=== PATIENT | female | born 1985 | race African-American/Black ===

== ENCOUNTER 2020-01-10 15:16 | Emergency (ER) | payer MEDICARE, SELFPAY ==
--- NOTE | ~2020-01-10 | XR_ITS ---
EXAMINATION: XR chest 2V 01/10/2020 15:41 INDICATION: Midsternal chest pain. Possible A. fib. Recently in-hospital for sepsis. PROCEDURE: 2 view chest COMPARISON: 09/07/2014 FINDINGS: The lungs are clear. The cardiomediastinal silhouette is within normal limits. There are no pleural effusions. There is no pneumothorax suspected. IMPRESSION: 1: NO ACUTE CARDIOPULMONARY DISEASE. Reviewed, dictated and finalized at location B. GN ENGINEERING SPECIALIST
--- NOTE | ~2020-01-10 | CT_ITS ---
EXAMINATION: CTA chest PE protocol DATE: 01/10/2020 18:49 INDICATION: Chest pain and shortness of breath. TECHNIQUE: Computed tomography (CT) pulmonary angiogram of the chest was performed with 100 mL Omnipa que-350 intravenous contrast. Additional 3D reconstructions utilizing coronal maximum intensity proje ction (MIP) were performed. Automated exposure control and iterative reconstruction technique were em ployed. The dose-length product was 804.16 mGy-cm. COMPARISON: None FINDINGS: Excellent contrast opacification of the pulmonary arteries. There is mild streak artifact from dense contrast in the superior vena cava and right atrium. Mild scattered respiratory motion artifact does not significantly limit evaluation. No pulmonary embolism. No pneumonia, pulmonary edema or pleural e ffusion. Heart size is normal. No pericardial effusion. Thoracic aorta is normal in caliber with no d issection. No pathologically enlarged thoracic lymphadenopathy. Small amount of soft tissue density i nterspersed with fat in the anterior mediastinum consistent with residual thymic tissue. Visualized u pper abdomen is unremarkable. There are bridging osteophytes at multiple levels in the spine, consist ent with diffuse idiopathic skeletal hyperostosis (DISH). IMPRESSION: 1. No pulmonary embolism or other acute cardiopulmonary disease. Reviewed, dictated and finalized at location A. REMOVER
[2020-01-10 15:09] VITALS: BP 119/73; PULSE 132; RESP 24; TEMP 36.8; O2SAT 100
--- NOTE | 2020-01-10 15:16 | ECG_ITS ---
Measurements Intervals [place] Rate: 128 P: 35 WI: 176 QRS: 21 QRSD: 76 T: 70 QT: 307 QTc: 449 Interpretive Statements SINUS TACHYCARDIA NONSPECIFIC T-WAVE ABNORMALITY- HIGH LATERAL LEADS BASELINE WANDER- I, II, AVR, V4-V6 ABNORMAL ECG Electronically Signed On 01-10-2020 15:35:23 PROFESSOR OF VEGETABLE SCIENCE by Maury Paige D.O.
[2020-01-10 15:32] LABS: Basophils Absolute Auto 0.1 K/mm3 (0.0-0.1); Basophils Percent Auto 0.9 % (0.2-1.2); Eosinophils Absolute Auto 0.1 K/mm3 (0-0.3); Eosinophils Percent Auto 1.1 % (0-4.4); Hematocrit 37.5 % (37.0-47.0); Hemoglobin 11.5 g/dL (12.0-15.0); Immature Granulocyte Absolute 0.04 K/mm3 (0.00-0.031); Immature Granulocyte Percent A 0.5 % (0-0.5); Lymphocytes Absolute Auto 3.13 K/mm3 (0.9-3.2); Lymphocytes Percent Auto 41.6 % (18.3-44.2); Mean Corpuscular HGB Conc 30.7 g/dl (32-36); Mean Corpuscular Hemoglobin 21.1 pg (26-34); Mean Corpuscular Volume 68.7 fl (80-100); Mean Platelet Volume 9.1 fl (7.4-10.4); Monocytes Absolute Auto 0.4 K/mm3 (0.1-0.6); Monocytes Percent Auto 4.8 % (2.6-8.5); Neutrophils Absolute Auto 3.9 K/mm3 (1.3-6.7); Neutrophils Percent Auto 51.1 % (45.5-73.1); Platelet Count Result 316 k/mm3 (150-375); Red Blood Count 5.46 M/mm3 (4.2-5.4); Red Cell Distribution Width 21.2 % (11.5-14.5); White Blood Count 7.5 K/mm3 (4.5-10.0)
[2020-01-10 15:45] LABS: INR 1.1; Prothrombin Time 14.9 Seconds (11.1-14.7)
[2020-01-10 15:46] LABS: Partial Thromboplastin Time 24.3 SECONDS (22.3-36.8)
[2020-01-10 15:48] LABS: Anion Gap 12 mmol/L (8-16); Blood Urea Nitrogen 11 mg/dL (7-17); Calcium 9.3 mg/dL (8.4-10.2); Carbon Dioxide 18 mmol/L (22-30); Chloride 105 mmol/L (98-107); Estimated CRCL calculation 140 ml/min; Estimated Glomerular Filt Rate > 60; Glucose 329 mg/dL (65-105); Potassium 4.5 mmol/L (3.4-5.0); Sodium 135 mmol/L (137-145)
--- NOTE | 2020-01-10 15:54 | ED.CHESTPAIN ---
HPI - Chest Pain General Chief Complaint: Chest Pain Stated Complaint: cp Time Seen by Provider: 01/10/20 15:28 Source: patient Mode of arrival: ambulatory Limitations: no limitations History of Present Illness HPI narrative: Patient is 34-year-old female complaining of chest pain, sharp, substernal, nonradiating, 6 out of 10, started today. Patient denies any shortness of breath, abdominal pain, nausea, vomiting, diaphoresis, fever or chills patient was recently discharged from [facility] due to toxic abscess. Patient was sent here by her primary care physician. Related Data Home Medications Medication Instructions Recorded Confirmed ferrous sulfate 325 mg PO DAILY 01/10/20 glucagon HCl [Glucagon (HCl) 1 mg SUBCUT Q20M PRN 01/10/20 Emergency Kit] insulin aspart U-100 [Novolog 1 sliding scale dose SUBCUT 01/10/20 PenFill U-100 Insulin] USEASDIRECTD insulin glargine [Lantus U-100 20 unit SUBCUT QPM 01/10/20 Insulin] medroxyprogesterone [Depo-Provera] 150 mg IM [id number] 01/10/20 Allergies Allergy/AdvReac Type Severity Reaction Status Date / Time No Known Allergies Allergy Verified 01/10/20 15:14 Review of Systems Review of Systems: All systems reviewed & are unremarkable except as noted in HPI and below Constitutional: Constitutional: Denies body ache(s), Denies chills, Denies excessive sweating, Denies fatigue, Denies fever(s), Denies headache(s), Denies lethargy, Denies malaise, Denies weakness and Denies weight loss Eyes: Eyes: Denies blurry vision, Denies change in vision and Denies loss of vision ENT: Denies dizziness, Denies ear discharge, Denies headache(s), Denies lip swelling, Denies epistaxis, Denies nasal congestion, Denies neck pain, Denies throat swelling and Denies tongue swelling Cardiovascular: Cardiovascular: Denies diaphoresis, Denies rapid heart rate, Denies edema, Denies irregular heart rhythm, Denies lightheadedness, Denies dyspnea and Denies dyspnea on exertion Respiratory: Respiratory: Denies chest congestion, Denies cough, Denies hemoptysis, Denies dyspnea and Denies dyspnea on exertion Gastrointestinal: Gastrointestinal: Denies abdominal pain, Denies melena, Denies hematochezia, Denies diarrhea, Denies nausea, Denies vomiting and Denies hematemesis Musculoskeletal: Musculoskeletal: Denies abnormal gait, Denies deformity, Denies joint swelling, Denies limited range of motion, Denies neck pain and Denies numbness Neurologic: Denies Abnormal speech present, Denies abnormal gait, Denies confusion, Denies dizziness, Denies headache(s), Denies focal weakness, Denies loss of vision, Denies numbness, Denies Other visual disturbances, Denies Sensory deficit (Neuro) and Denies weakness Psychiatric: Psychiatric: Denies confusion, Denies depression, Denies auditory hallucinations, Denies homicidal ideation and Denies suicidal ideation Endocrine: Endocrine: Denies cold intolerance, Denies excessive sweating, Denies fatigue, Denies heat intolerance and Denies palpitations Hematologic/Lymphatic: Hematologic/Lymphatic: Denies easy bleeding and Denies easy bruising Allergic/Immunologic: Allergic/Immunologic: Denies lip swelling, Denies throat swelling and Denies tongue swelling [facility] Family History Family History (Updated 10/04/13 @ 07:13 by DOCTOR UNKNOWN) Sibling Family history of type 2 diabetes mellitus Social History Social History Smoking status: Never smoker Second hand tobacco smoke exposure: No Alcohol intake: never Gender identity (if verbalized by the patient): Female Exam Const: General: cooperative, healthy appearing, comfortable, no acute distress, well developed, alert and awake; No confusion Orientation/consciousness: oriented to person, oriented to place, oriented to time, patient oriented x3 and No confusion Limitations: no limitations HENMT: Head: normal to inspection, normocephalic and atraumatic Ears: hearing grossly normal bilaterally, TM normal
[2020-01-10 15:58] LABS: Troponin I < 0.012 ng/mL (0.000-0.034)
[2020-01-10 16:02] LABS: D Dimer 0.27 ug/mL (<0.48)
[2020-01-10 16:15] VITALS: PULSE 123
[2020-01-10 16:34] VITALS: BP 112/78; PULSE 121; RESP 22; O2SAT 98
[2020-01-10] MEDS: SODIUM CHLORIDE 0.9% IV 1,000 ML 999 ML IV CONT (17:43)
[2020-01-10 17:47] VITALS: BP 136/90; PULSE 117; RESP 18; O2SAT 97
[2020-01-10 18:48] LABS: Troponin I < 0.012 ng/mL (0.000-0.034)
[2020-01-10 19:19] VITALS: BP 107/78; PULSE 112; RESP 16; O2SAT 99
== END 2020-01-10 19:15 | disposition home or self-care (01) ==
PROVIDERS: Emergency Medicine; Emergency Provider Emergency Medicine
DX: R07.89 Other chest pain (principal); R00.0 Tachycardia, unspecified; Z79.4 Long term (current) use of insulin; R94.31 Abnormal electrocardiogram [ECG] [EKG]
CPT/HCPCS: 36415; 71046; 71275; 80048; 81025; 84484; 85025; 85380; 85610; 85730; 93005; 99284; J7030; Q9967

== ENCOUNTER 2021-04-01 10:31 | Outpatient (CLI) | payer MEDICARE, SELFPAY ==
--- NOTE | ~2021-04-01 | MMUS_ITS ---
EXAMINATION: MM diagnostic vern BI w heaven, US breast RT limited HISTORY: Right breast lump for 2 weeks TECHNIQUE: Bilateral full and right spot field and spot ML, MLO and CC 3-D tomosynthesis images were performed and synthetic 2-D images were generated. CAD analysis was submitted and interpreted. High r esolution right upper and lower quadrant, subareolar and right axillary ultrasound ultrasound was per formed. COMPARISON: None BREAST PARENCHYMAL COMPOSITION: There are scattered areas of fibroglandular density. FINDINGS: MAMMOGRAPHIC FINDINGS: There is asymmetric increased streaky density with interspersed areas of fat extending from the subar eolar region into the mid to upper outer anterior right breast, with some overlying skin thickening. Subtle punctate benign microcalcifications are noted in this area. Differential diagnosis includes in fection and inflammatory breast carcinoma. There is a rounded circumscribed approximately 1.65 cm opacity in the right axillary area, likely an enlarged lymph node. No suspicious mass, architectural distortion, malignant calcification, skin thickening or retraction of either breast is noted elsewhere. ULTRASOUND: There is serpiginous irregular hypoechogenicity extending from the nipple into the mid to upper outer right breast, with prominent vascularity and some posterior shadowing. The mammographic and sonograp hic features are suspicious for inflammatory carcinoma of the breast. There is a 1.8 x 1.4 x 1.1 cm hypoechoic circumscribed soft tissue mass in the right axillary area, s uspicious for metastatic lymph node. Differential diagnosis includes less likely infection/mastitis with reactive right axillary adenopath y. Ultrasound-guided biopsy of the right breast and right axillary node is recommended. IMPRESSION: 1. Serpiginous irregular soft tissue density extending from the right nipple into the mid to upper an terior right breast, with subtle punctate microcalcifications, prominent vascularity and some sonogra phic posterior shadowing. 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 Differential diagno sis includes the less likely possibility of infection. 2. Ultrasound-guided biopsy of right breast mass and right enlarged axillary lymph node is recommende d. BI-RADS category 4, suspicious findings. Dr. Soto telephoned the report and ultrasound-guided biopsy recommendation on 04/01/2021 at 1220 hours to Neelam at Dr. Hollingsworth's office. Dr. Corley discussed the case with Dr. Hollingsworth on the phone. Both d octors agreed that biopsy of the right breast and right axillary node was definitely indicated. Reviewed, dictated and finalized at location A. CIAL ASSISTANT IMPRESSION: 1. Serpiginous irregular soft tissue density extending from the right nipple in to the mid to upper anterior right breast, with subtle punctate microcalcificat ions, prominent vascularity and some sonographic posterior shadowing. The findi ngs are suspicious for inflammatory carcinoma. Differential diagnosis includes the less likely possibility of infection. 2. Ultrasound-guided biopsy of right breast mass and right enlarged axillary ly mph node is recommended. BI-RADS category 4, suspicious findings. Dr. Soto telephoned the report and ultrasound-guided biopsy recommendation on at 1220 hours to Neelam at Dr. Hollingsworth's office. Dr. Corley discussed t he case with Dr. Hollingsworth on the phone. Both doctors agreed that biopsy of the ri ght breast and right axillary node was definitely indicated.
== END 2021-04-01 10:32 | disposition home or self-care (01) ==
LOC: ANHIMG 10:33
PROVIDERS: Visit Provider Obstetrics & Gynecology
DX: N63.10 Unspecified lump in the right breast, unspecified quadrant (principal); R92.8 Other abnormal and inconclusive findings on diagnostic imaging of breast
CPT/HCPCS: 76642; 77062; 77066; G0279

== ENCOUNTER 2022-11-22 17:13 | Observation (INO) | payer MEDICARE, SELFPAY ==
[2022-11-22] VITALS (20 sets, daily range): BP systolic 97–115; BP diastolic 62–83; PULSE 81–119; RESP 14–18; TEMP 36.8; O2SAT 97–100
--- NOTE | ~2022-11-22 | CT_ITS ---
CT of the Abdomen and Pelvis: Indication: Sepsis Technique: 2.5 mm axial scans were obtained through the abdomen and pelvis following intravenous adm inistration of 100 cc of Omnipaque 350. Dose reduction technique was used on this scan by utilizing a utomated exposure control and iterative reconstruction technique. The dose-length product (DLP) was 1 116.73 mGy-cm. Findings: Scans through the lung bases are unremarkable. The liver, spleen, pancreas, adrenals and kidneys are within normal limits. Small gallstones are pres ent. No evidence of aortic aneurysm. No lymphadenopathy. No bowel obstruction or bowel wall thickening. There is no evidence to suggest acute appendicitis. Images through the pelvis were performed. Urinary bladder unremarkable. No adnexal mass seen. No asci brett. Impression: Cholelithiasis. Reviewed, dictated and finalized at location . Impression: Cholelithiasis.
[2022-11-22] MEDS: SODIUM CHLORIDE 0.9% IV 1,000 ML 999 ML IV CONT (20:35)
[2022-11-22] MEDS: ONDANSETRON INJ 4 MG/2 ML VIAL IV PUSH (20:35)
[2022-11-22 20:44] LABS: Hematocrit 45.5 % (37.0-47.0); Hemoglobin 13.2 g/dL (12.0-15.0); Mean Corpuscular Hemoglobin 22.4 pg (26-34); Mean Corpuscular Volume 77.4 fl (80-100); Mean Platelet Volume 9.4 fl (7.4-10.4); Platelet Count Result 260 k/mm3 (150-375); Red Blood Count 5.88 M/mm3 (4.2-5.4); Red Cell Distribution Width 17.2 % (11.5-14.5); White Blood Count 20.8 K/mm3 (4.5-10.0)
[2022-11-22 20:59] LABS: Influenza A QL RT-PCR Negative (Negative); Influenza B QL RT-PCR Negative (Negative); RSV RNA, RT-PCR Negative (Negative); SARS-CoV-2 RNA PCR Negative (Negative)
[2022-11-22 20:59] LABS: Ethanol < 10 mg/dL (<10)
[2022-11-22 21:03] LABS: Amphetamine Screen Urine Negative (Negative); Barbiturate Screen Urine Negative (Negative); Benzodiazepines Screen Urine Negative (Negative); Cannabinoid Screen Urine Negative (Negative); Cocaine Screen Urine Negative (Negative); Methadone Screen Urine Negative (Negative); Opiate Screen Urine Negative (Negative); Phencyclidine Screen Urine Negative (Negative)
[2022-11-22 21:06] LABS: Appearance Urine Turbid (Clear); Bacteria Urine 4+ /hpf; Bilirubin Urine Negative (Negative); Blood Urine 1+ (Negative); Color Urine Dark Yellow (Yellow); Glucose Urine UA 3+ mg/dL (Negative); Hyaline Casts Urine Present /lpf; Ketones Urine 1+ mg/dL (Negative); Leukocyte Esterase Ur 2+ LEU/UL (Negative); Nitrate Urine Negative (Negative); Non Pathogenic Casts >20; Protein Urine 3+ mg/dL (Negative); RBC Urine 0-2 /hpf (0-2); Specific Grav Ur 1.027 (1.001-1.035); Squamous Epithelial Cell Urine Many /hpf (Few); WBC Urine 51-100 /hpf
[2022-11-22 21:07] LABS: Add Urine Microscopic? YES
[2022-11-22 21:09] LABS: Alanine Aminotransferase 26 U/L (6-35); Albumin Level 4.3 g/dL (3.5-5.1); Alkaline Phosphatase 105 U/L (38-126); Anion Gap 11 mmol/L (8-16); Aspartate Amino Transferase 32 U/L (14-36); Bilirubin,Total 1.5 mg/dL (0.2-1.3); Blood Urea Nitrogen 13 mg/dL (7-17); Calcium 8.9 mg/dL (8.4-10.2); Carbon Dioxide 26 mmol/L (22-30); Chloride 95 mmol/L (98-107); Estimated CRCL calculation 72 ml/min; Estimated Glomerular Filt Rate > 60; Glucose 504 mg/dL (65-110); Potassium 4.7 mmol/L (3.4-5.0); Sodium 132 mmol/L (137-145)
[2022-11-22] MEDS: INSULIN HUMAN REGULAR (*BKC) 100 UNITS/ML 10 UNITS SUB-Q (21:19)
[2022-11-22 21:23] LABS: Band Neutrophils Percent 3 % (0-6); Lymphocytes Absolute Manual 1.87 K/mm3 (1.1-4.5); Monocytes Absolute Manual 2.28 K/mm3 (0.1-0.90); Monocytes Percent Manual 11 % (3-9); Neutrophils Absolute Manual 16.64 K/mm3 (1.7-7.2); Neutrophils Percent Manual 77 % (46-73); Platelet Estimate Adequate (Adequate); Schistocytes None Seen (NORMAL); Total Cells Counted 100
[2022-11-22 21:24] LABS: Anisocytosis 2+ (NORMAL); Hypochromasia 1+ (NORMAL)
[2022-11-22 22:52] LABS: Glucose Point of Care 311 mg/dl (65-105)
--- NOTE | 2022-11-22 23:06 | PC.NURSE ---
Patient report given to KYRIE Berry. All questions answered and care of patient transferred.
--- NOTE | 2022-11-22 23:20 | PC.NURSE ---
Assumed care of pt. Report from KYRIE Browning. Pt denies any c/o at this time. Will cont to monitor.
--- NOTE | 2022-11-22 23:49 | ED.DIZZY ---
HPI - Dizziness General Chief Complaint: Dizziness Stated Complaint: dizzy Time Seen by Provider: 11/22/22 19:53 History of Present Illness HPI Narrative: Patient presents to the emergency department with not feeling well and dizziness. States she thinks she might have an infection . Denies cough. Denies urinary symptoms. Denies nausea vomiting. Denies fevers and chills. Related Data Home Medications Medication Instructions Recorded Confirmed ferrous sulfate 325 mg (65 mg 325 mg PO DAILY 01/10/20 iron) tablet glucagon HCl 1 mg solution for 1 mg subcut Q20M PRN Hypoglycemia 01/10/20 injection (Glucagon (HCl) Emergency Kit) insulin aspart U-100 100 unit/mL 1 sliding scale dose subcut 01/10/20 subcutaneous cartridge (Novolog USEASDIRECTD PenFill U-100 Insulin aspart) insulin glargine 100 unit/mL 20 unit subcut QPM 01/10/20 subcutaneous cartridge medroxyprogesterone 150 mg/mL 150 mg IM [id number] 01/10/20 intramuscular suspension (Depo-Provera) Allergies Allergy/AdvReac Type Severity Reaction Status Date / Time No Known Allergies Allergy Verified 01/10/20 15:14 Review of Systems Review of Systems: Review of systems negative except what is documented in the [facility] Family History Family History (Updated 10/04/13 @ 07:13 by DOCTOR UNKNOWN) Sibling Family history of type 2 diabetes mellitus Social History Social History Smoking status: Never smoker Second hand tobacco smoke exposure: No Alcohol intake: never Gender identity (if verbalized by the patient): Female Exam Narrative: GENERAL: Well-appearing, well-nourished, and in no acute distress. Drowsy HEAD: Normocephalic, atraumatic. EYES: PERRLA and EOMI. ENT: Nares clear, no rhinorrhea or epistaxis. Mucous membranes moist. NECK: Supple. CHEST: Clear to auscultation. No respiratory distress. HEART: Regular rate and rhythm. ABDOMEN: Soft, nontender, nondistended. EXTREMITIES: Normal range of motion. No edema. SKIN: Warm, dry, no rash. NEURO: No focal deficits. Alert and oriented x3. PSYCH: Normal mood and affect. Course Course Emergency Course: Hyperglycemia 504 on initial results with tachycardia and mild hypotension consistent with dehydration. Vital signs improved after normal saline bolus. White blood cell count is 20 with a urinary tract infection 50-100 WBCs. Serum blood sugar improved after insulin and fluids however due to elevated white blood cell count and urine results will do CT abdomen. Vital Signs Vital signs: Vital Signs Temperature 36.8 C 11/22/22 17:29 Pulse Rate 119 H 11/22/22 17:29 Respiratory Rate 18 11/22/22 17:29 Blood Pressure 97/68 L 11/22/22 17:29 Pulse Oximetry 97 11/22/22 17:29 Oxygen Delivery Room Air 11/22/22 17:29 Temperature 36.8 C 11/22/22 17:29 Pulse Rate 117 H 11/23/22 06:50 Respiratory Rate 18 11/23/22 06:50 Blood Pressure 126/83 11/23/22 06:50 Pulse Oximetry 100 11/23/22 06:50 Oxygen Delivery Room Air 11/22/22 17:29 MDM - Dizziness MDM Narrative Medical decision making narrative: repeat lactate pending, initial lactate 2.4 and [place] 2[place] 0550a Ct resulted and shows cholelithiasis. does not show any signs of pyelonephritis however she is still tachycardic. will admit for iv antibiotics and fluid rehydration Lab Data 11/22/22 20:36 11/22/22 20:36 Labs: Lab Results 11/22/22 11/22/22 11/22/22 Range/Units 20:19 20:36 22:49 WBC 20.8 H (4.5-10.0) K/mm3 RBC 5.88 H (4.2-5.4) M/mm3 Hgb 13.2 (12.0-15.0) g/dL Hct 45.5 (37.0-47.0) % MCV 77.4 L (80-100) fl MCH 22.4 L (26-34) pg MCHC 29.0 L (32-36) g/dl RDW 17.2 H (11.5-14.5) % Plt Count 260 (150-375) k/mm3 MPV 9.4 (7.4-10.4) fl Immature Gran % (Auto) Not Reportable Neut % (Auto) Not Reportable Lymph % (Auto) Not Reportable Foard % (Auto) Not Repo
[2022-11-23] VITALS (30 sets, daily range): BP systolic 105–139; BP diastolic 66–95; PULSE 106–118; RESP 12–21; TEMP 36.3–37.1; O2SAT 94–100; BMI 33.7
[2022-11-23] MEDS: cefTRIAXone 2 GM/NS 100 ML 2 GM/100 ML BAG IVPB (00:01)
[2022-11-23] MEDS: SODIUM CHLORIDE 0.9% IV 1,000 ML 999 ML IV CONT (00:01)
[2022-11-23] MEDS: KETOROLAC 15 MG/ML VIAL (*BKC) IV PUSH (00:02)
[2022-11-23 01:32] LABS: Lactic Acid Reflex 2.4 mmol/L (0.7-2.0)
[2022-11-23 02:41] LABS: Pregnancy On Board Control Positive; Urine Pregnancy Test Negative
[2022-11-23 03:42] LABS: Lactic Acid Reflex 1.9 mmol/L (0.7-2.0)
[2022-11-23 04:17] LABS: Reflex Lactic Acid Yes or No Add Lactic
--- NOTE | 2022-11-23 07:12 | PC.NURSE ---
Report to KYRIE Grider
[2022-11-23] MEDS: SODIUM CHLORIDE 0.9% IV 1,000 ML 125 ML IV CONT ×2 (08:07→15:56)
--- NOTE | 2022-11-23 10:12 | ADMGEN ---
This patient, Cande Davies, was admitted to [facility] Surg Room 311-01. Patient/family oriented to hospital policies and general routines including ID bracelet, bed and alarms, visiting hours, pain management, procedures, bathroom and other care routines, personal items, smoking policy, room service/diet, and visiting hours. Information on how to activate the Rapid Response Team has been discussed. Patient/Family are encouraged to report perceived risks to care and to ask questions if they do not understand what they are told or what they should do. Report from Marni in ER.
[2022-11-23 12:15] LABS: Glucose Point of Care 327 mg/dl (65-105)
[2022-11-23] MEDS: INSULIN HUMAN REGULAR (*BKC) 100 UNITS/ML SUB-Q (12:28)
--- NOTE | 2022-11-23 14:14 | PM.IMHP ---
H&P: HPI History of Present Illness Date/Time: 11/23/22 14:00 Chief Complaint: Dizziness and not feeling well. Narrative: This is a 37-year-old female with insulin-dependent type 2 diabetes mellitus who presented to the department last evening via private vehicle for evaluation of dizziness and not feeling well. The patient provides the following history. Tuesday while at work she developed fatigue, body aches, chills, sinus congestion, mild sore throat, runny nose, and lightheadedness. Her symptoms continued Tuesday and she was supposed to go to work last evening and she made an attempt. While at work she continued to have lightheadedness and dizziness, mainly upon standing, and she felt as though she was going to pass out. She had pretty significant nausea but she never vomited. At time she feels her heart racing and she has had some mild heaviness in the mid chest region. Boss notice that she did not appear well and encouraged her to come to the ER for evaluation. She denies fever, sick contacts, vomiting, chest pain, shortness a breath, cough, abdominal pain, back pain, and dysuria. She denies recent travel. No history of venous thromboembolism. In the ED: She was afebrile on arrival. Blood pressures were reviewed and they are stable. She has been tachycardic since arrival. Labs were significant for WBC count of 20.8, sodium 132, glucose 504. Urine was positive for 3+ glucose, 1+ ketones, 2+ leukocyte esterase, 51 to 100 WBC, 4+ bacteria, and many squamous cells. Urine drug screen was negative. She tested negative for influenza, RSV, and COVID. CT of the abdomen and pelvis showed cholelithiasis. Review of Systems Review of Systems: Twelve systems reviewed and are negative except for as per HPI. [facility] Past Medical History Medical History Hidradenitis suppurativa Insulin dependent type 2 diabetes mellitus Iron deficiency anemia History of blood transfusion Obstructive sleep apnea Untreated Surgical History Surgical History History of section Family History Family History Sibling Family history of type 2 diabetes mellitus Father Family history of type 2 diabetes mellitus Mother Hypertension Social History Social History Social History: Surrogate medical decision maker: Sue Palma, mother. Code status: Full code. Smoking status: Never smoker Second hand tobacco smoke exposure: No Alcohol intake: never Substance use: never Lack of Transportation: No Lack of Food: Sometimes True Current Housing: I Have Housing Concerned About Future Housing: No Difficulty Paying Gas/Electric Bills: No Difficulty Paying for Meds: No Currently Unemployed: No Education: Don't Know Difficulty w/ Childcare or Family Care: No Spiritual care concerns: No Meds Home Medications and Allergies Home Medications Medication Instructions Recorded Confirmed Type glucagon HCl 1 mg solution for 1 mg subcut Q20M PRN Hypoglycemia 01/10/20 11/23/22 History injection (Glucagon (HCl) Emergency Kit) glipizide 10 mg tablet 10 mg PO DAILY 11/23/22 11/23/22 History insulin NPH-regular 70-30 U-100 45 unit subcut BID 11/23/22 11/23/22 History insulin 100 unit/mL subcutaneous pen (Novolin 70-30 FlexPen U-100 Insulin) Allergies Allergy/AdvReac Type Severity Reaction Status Date / Time No Known Allergies Allergy Verified 11/23/22 10:24 Vital Signs Vital Signs - 24 hr 11/22/22 17:29 11/22/22 19:43 11/22/22 19:44 Temperature 98.2 F Pulse Rate 119 H Respiratory Rate 18 Blood Pressure 97/68 L 107/74 Pulse Oximetry 97 99 Oxygen Delivery Room Air 11/22/22 19:45 11/22/22 19:46 11/22/22 20:00 Temperature Pulse Rate Resp
[2022-11-23 14:59] LABS: Hematocrit 36.8 % (37.0-47.0); Hemoglobin 10.9 g/dL (12.0-15.0); Mean Corpuscular HGB Conc 29.6 g/dl (32-36); Mean Corpuscular Hemoglobin 22.6 pg (26-34); Mean Corpuscular Volume 76.3 fl (80-100); Mean Platelet Volume 9.4 fl (7.4-10.4); Platelet Count Result 222 k/mm3 (150-375); Red Blood Count 4.82 M/mm3 (4.2-5.4); Red Cell Distribution Width 16.4 % (11.5-14.5); White Blood Count 11.6 K/mm3 (4.5-10.0)
[2022-11-23 15:14] LABS: Anion Gap 5 mmol/L (8-16); Blood Urea Nitrogen 7 mg/dL (7-17); Calcium 7.8 mg/dL (8.4-10.2); Carbon Dioxide 23 mmol/L (22-30); Chloride 104 mmol/L (98-107); Estimated CRCL calculation 171 ml/min; Estimated Glomerular Filt Rate > 60; Glucose 367 mg/dL (65-110); Magnesium 1.9 mg/dL (1.6-2.3); Potassium 4.3 mmol/L (3.4-5.0); Sodium 132 mmol/L (137-145)
[2022-11-23 15:19] LABS: Beta-Hydroxybutyrate/Acetoacetate 0.25 mmol/L (0.02-0.27)
[2022-11-23 15:46] LABS: Thyroid Stimulating Hormone Reflex 0.961 uIU/mL (0.465-4.68)
[2022-11-23] MEDS: INSULIN ASPART (*BKC) 100 UNITS/ML SUB-Q ×2 (16:56→20:42)
[2022-11-23] MEDS: INSULIN HUMAN ISOPHAN/REGULAR 70/30 (*BKC) 100 UNITS/ML 45 UNITS SUB-Q (16:57)
[2022-11-23 17:09] LABS: Glucose Point of Care 286 mg/dl (65-105)
[2022-11-23 22:28] LABS: Glucose Point of Care 278 mg/dl (65-105)
[2022-11-24] VITALS: PULSE 101
--- NOTE | 2022-11-24 | ECG_ITS ---
Measurements Intervals [place] Rate: 100 P: 53 [place]: 149 QRS: -3 QRSD: 79 T: 52 QT: 360 QTc: 466 Interpretive Statements SINUS TACHYCARDIA BORDERLINE ECG COMPARED TO ECG 01/10/2020 15:12:55 NO SIGNIFICANT CHANGES Electronically Signed On 11-24-2022 9:03:02 CDT by Edouard Whyte M.D.
[2022-11-24 00:09] LABS: D Dimer 0.31 ug/mL (<0.48)
[2022-11-24] MEDS: SODIUM CHLORIDE 0.9% IV 1,000 ML 125 ML IV CONT (00:48)
[2022-11-24 04:00] VITALS: PULSE 96
[2022-11-24 04:10] VITALS: BP 142/93; PULSE 97; RESP 20; TEMP 35.6; O2SAT 96
[2022-11-24 06:05] LABS: Hematocrit 34.2 % (37.0-47.0); Hemoglobin 10.1 g/dL (12.0-15.0); Mean Corpuscular HGB Conc 29.5 g/dl (32-36); Mean Corpuscular Hemoglobin 22.4 pg (26-34); Mean Platelet Volume 9.3 fl (7.4-10.4); Platelet Count Result 197 k/mm3 (150-375); Red Cell Distribution Width 16.1 % (11.5-14.5); White Blood Count 7.6 K/mm3 (4.5-10.0)
[2022-11-24 06:23] LABS: Anion Gap 6 mmol/L (8-16); Blood Urea Nitrogen 3 mg/dL (7-17); Calcium 7.4 mg/dL (8.4-10.2); Carbon Dioxide 24 mmol/L (22-30); Chloride 107 mmol/L (98-107); Estimated CRCL calculation 220 ml/min; Estimated Glomerular Filt Rate > 60; Glucose 169 mg/dL (65-110); Potassium 3.3 mmol/L (3.4-5.0); Sodium 137 mmol/L (137-145)
[2022-11-24] MEDS: glipiZIDE 5 MG TABLET 10 MG PO (07:57)
[2022-11-24 08:00] VITALS: PULSE 111
[2022-11-24 08:24] LABS: Glucose Point of Care 187 mg/dl (65-105)
[2022-11-24] MEDS: INSULIN HUMAN ISOPHAN/REGULAR 70/30 (*BKC) 100 UNITS/ML 45 UNITS SUB-Q ×2 (09:20→17:30)
[2022-11-24] MEDS: POTASSIUM CHLORIDE 20 MEQ ER TABLET 40 MEQ PO (10:35)
--- NOTE | 2022-11-24 11:15 | PM.DS ---
DS: Admitting Diagnosis Discharge Date 11/24/22 Admitting Diagnosis sepsis:unknown origin DS: Discharge Diagnosis Discharge Diagnosis (1) Sepsis: Qualifiers: Sepsis acute organ dysfunction status: unspecified Sepsis type: sepsis due to unspecified organism Qualified Code(s): A41.9 - Sepsis, unspecified organism Code(s): A41.9 - Sepsis, unspecified organism Status: Acute Assessment and Plan: Sepsis documented in ED. Patient meets SIRS criteria with tachycardia and leukocytosis in the setting of UTI. Lactic acid level was elevated but has normalized with IV rehydration. Blood pressures have been stable. No evidence of end-organ damage. Blood cultures pending, will f/u when resulted. (2) Urinary tract infection: Qualifiers: Hematuria presence: without hematuria Urinary tract infection type: site unspecified Qualified Code(s): N39.0 - Urinary tract infection, site not specified Code(s): N39.0 - Urinary tract infection, site not specified Status: Acute Assessment and Plan: Patient denies urinary symptoms but UA is positive for leukocyte esterase, bacteria, and 51 to 100 WBC. Continue ceftriaxone, will send home on omnicef PO UA culture positive for GBS (3) Type 2 diabetes mellitus with hyperglycemia: Code(s): E11.65 - Type 2 diabetes mellitus with hyperglycemia Status: Acute Assessment and Plan: Random glucose was over 500 on arrival but has improved with IV fluids. Continue NPH and glipizide. Initiate sliding scale insulin, Accu-Cheks, and hypoglycemic protocol. Hemoglobin A1c is 13%. driver material handler consulted. (4) Tachycardia: Code(s): R00.0 - Tachycardia, unspecified Status: Acute Assessment and Plan: Patient has been in a sinus tachycardia since arrival despite IV fluid rehydration. EKG 11/23 normal, Saline locked form IV fluids, tolerating PO intake with I&O D-dimer WNL (5) Hypokalemia: Code(s): E87.6 - Hypokalemia Status: Acute Assessment and Plan: 11/24 - K+ 3.3, will give PO 40 KCL, 1500 labs drawn at hypokalemia resolved to 3.7 - magnesium WNL in pm labs 11/24 DS: Summary Hospital Course Hospital Course: 37 YO female presented to ER on 11/23 reporting dizziness and not feeling well. She is insulin-dependent type 2 diabetes mellitus She denies fever, sick contacts, vomiting, chest pain, shortness a breath, cough, abdominal pain, back pain, and dysuria. She denies recent travel. No history of venous thromboembolism. Labs were significant for WBC count of 20.8, sodium 132, glucose 504. Urine was positive for 3+ glucose, 1+ ketones, 2+ leukocyte esterase, 51 to 100 WBC, 4+ bacteria, and many squamous cells. Urine drug screen was negative. She tested negative for influenza, RSV, and COVID. CT of the abdomen and pelvis showed cholelithiasis. Blood cultures pending. Hypokalemia treated with PO replacement, will monitor electrolytes. D-dimer negative, EKG showed no significant findings. IV Rocephin given, will d/c with omnicef PO. Time Spent with Patient Time attestation: Total time spent providing and/or coordinating discharge services: Exam Narrative: General: Normal appearing femaleup in chair in no acute distress. A&O x3 HEENT: PERRL, EOMI. Neck: Supple. Respiratory: Lungs are clear to auscultation bilaterally. Cardiovascular: Tachycardic with normal S1-S2. Gastrointestinal: Abdomen is soft, nontender, and nondistended with positive bowel sounds. Skin: Warm and dry. Extremities: No cyanosis, clubbing, or edema. Radial and pedal pulses intact. Neurological: Alert. No gross focal deficits to casual conversation. Psychiatric: Pleasant and cooperative with normal mood and affect. Judgment and insight intact. DS: Data Data Completed and Pending Labs on day of discharge: Labs from last 24 hours 11/24/22 11/24/22 11/23/22 08:20
[2022-11-24 11:50] LABS: Glucose Point of Care 176 mg/dl (65-105)
[2022-11-24 12:00] VITALS: PULSE 97
[2022-11-24 12:55] VITALS: BMI 34.4
[2022-11-24 13:35] VITALS: BP 148/85; PULSE 108; RESP 22; TEMP 36.6; O2SAT 97
[2022-11-24 16:13] LABS: Magnesium 1.9 mg/dL (1.6-2.3); Potassium 3.7 mmol/L (3.4-5.0)
--- NOTE | 2022-11-24 16:27 | PC.NURSE ---
Called hospitalist about 1500 K and Mag. OK to discharge patient.
[2022-11-24 16:48] LABS: Glucose Point of Care 136 mg/dl (65-105)
--- NOTE | 2022-11-30 07:05 | PC.NURSE ---
Blood cx are negative.
== END 2022-11-24 18:00 | disposition home or self-care (01) ==
LOC: ANHED 11-23 06:02 → ANH3MEDSUR 11-23 08:57
PROVIDERS: Nurse Practitioner; Physician Assistant; Admitting Provider Internal Medicine; Emergency Provider Emergency Medicine; Visit Provider Chiropractor
DX: A41.9 Sepsis, unspecified organism (principal); N39.0 Urinary tract infection, site not specified; B95.1 Streptococcus, group B, as the cause of diseases classified elsewhere; R00.0 Tachycardia, unspecified; R11.0 Nausea; E11.65 Type 2 diabetes mellitus with hyperglycemia; E87.6 Hypokalemia; K80.20 Calculus of gallbladder without cholecystitis without obstruction; D50.9 Iron deficiency anemia, unspecified; G47.33 Obstructive sleep apnea (adult) (pediatric); Z20.822 Contact with and (suspected) exposure to COVID-19; D72.829 Elevated white blood cell count, unspecified; E86.0 Dehydration; Z83.3 Family history of diabetes mellitus; Z79.4 Long term (current) use of insulin; Z79.84 Long term (current) use of oral hypoglycemic drugs; Z30.42 Encounter for surveillance of injectable contraceptive; Z79.899 Other long term (current) drug therapy
CPT/HCPCS: 36415; 74177; 80048; 80053; 80307; 81001; 81025; 82010; 82948; 83036; 83605; 83735; 84132; 84443; 85025; 85027; 85380; 87040; 87086; 87088; 87147; 87637; 93005; 96361; 96365; 96375; 99285; A9270; G0378; J0696; J1815; J1885; J2405; J7030; Q9967

== ENCOUNTER 2024-10-23 17:59 | Inpatient (IN) | payer MEDICARE, SELFPAY ==
[2024-10-23] VITALS (11 sets, daily range): BP systolic 123–154; BP diastolic 74–100; PULSE 108–118; RESP 17–21; TEMP 36.6; O2SAT 98–100
--- NOTE | ~2024-10-23 | CT_ITS ---
EXAMINATION: CT knee LT wo con DATE: 10/25/2024 11:26 INDICATION: Left knee joint effusion. TECHNIQUE: Computed tomography (CT) of the left knee was performed without intravenous contrast. Automated exposure control and iterative reconstruction technique were employed. The dose-length product was 597.13 mGy-cm. COMPARISON: Left knee radiographs 10/23/2024 FINDINGS: Alignment is normal. No fracture. There is mild tricompartmental osteoarthritis. There is a large knee joint effusion. There is a small Brannon's cyst. IMPRESSION: 1. Mild left knee osteoarthritis. 2. Large left knee joint effusion. 3. Small Brannon's cyst. Reviewed, dictated and finalized at location E.
--- NOTE | ~2024-10-23 | XR_ITS ---
Examination: XR chest 2V Clinical History: chest pain Comparison: 01/10/2020 Technique: PA and Lateral Findings: Cardiomediastinal silhouette normal size and configuration. Lungs clear. No acute bony abnormality. IMPRESSION: 1. No acute cardiopulmonary findings. Reviewed, dictated and finalized at location R.
--- NOTE | ~2024-10-23 | US_ITS ---
EXAMINATION: US soft tissue groin LT DATE: 10/24/2024 12:43 INDICATION: Left groin abscess. TECHNIQUE: Multiple grayscale and Doppler ultrasound images of the region of concern at the left groin were obtained. COMPARISON: CT dated 10/23/2024 FINDINGS: Per notation of the utility service worker, portion of the right groin deep to the inguinal crease were unable to be obtained as patient refused imaging directly over the site of the reported wound. There are multiple mildly enlarged and likely reactive left inguinal lymph nodes, the largest measuring 1.2 cm in maximal short axis diameter. No evident abscess. IMPRESSION: 1. Likely reactive left inguinal lymphadenopathy with no abscess identified. Assessment is however limited as patient refused imaging directly underlying the site of the skin wound. Reviewed, dictated and finalized at location A. IMPRESSION: 1. Likely reactive left inguinal lymphadenopathy with no abscess identified. As sessment is however limited as patient refused imaging directly underlying the site of the skin wound.
--- NOTE | ~2024-10-23 | CT_ITS ---
EXAMINATION: CT abdomen pelvis w con DATE: 10/23/2024 20:11 INDICATION: Right lower quadrant abdominal pain. TECHNIQUE: Computed tomography (CT) of the abdomen and pelvis was performed with 100 mL Omnipaque 350 intravenous contrast. Automated exposure control and iterative reconstruction technique were employed. The dose-length product was 1042.15 mGy-cm. COMPARISON: CT abdomen and pelvis 11/23/2022 FINDINGS: The visualized portions of the lung bases demonstrate mild atelectasis. No pleural effusion. The heart size is normal. No pericardial effusion. The liver is normal. There are gallstones in the gallbladder, which is normal in size. The spleen, pancreas, and adrenal glands are normal. There are small areas of wedge-shaped hypoenhancement in the kidneys on either side, consistent with pyelonephritis. There are no dilated loops of bowel. The appendix is normal. There are no pathologically enlarged lymph nodes. There is no free intraperitoneal fluid. There is diffuse bladder wall thickening, co nsistent with cystitis. There is fat stranding in left inguinal region, consistent with inflammation. There is mild thoracic and lumbar spondylosis. IMPRESSION: 1. Cystitis. 2. Mild bilateral pyelonephritis. Reviewed, dictated and finalized at location E.
--- NOTE | ~2024-10-23 | XR_ITS ---
X-rays left knee Indication: Pain Comparison: None Technique: 4 views left knee Findings/Impression: 1. Large joint effusion. 2. No fracture identified. Reviewed, dictated and finalized at location R.
--- OUTSIDE RECORDS SUMMARY | 2024-10-23 18:02 | XMS_ITS | Clinical Summary ---
Author Organization [facility] Care Team Providers Care Photo Equipment Technician Name Role Phone Unavailable Primary Care Provider Unavailabl e Social History Tobacco Use Types Packs/Day Years Used Date Smoking Tobacco: Never Assessed Comments Unknown Sex and Gender Information Value Date Recorded Sex Assigned at Not on file Legal Sex Female 5:42 PM CDT Gender Identity Not on file Sexual Orientation Not on file Plan of Treatment Health Maintenance Due Date Last Done Comments Hepatitis C Virus (HCV) Screening 1986 TdaP Immunization 1986 Hepatitis B Immunization (1 of 3 - 19+ 3-dose series) 2005 Pap Smear 08/28/2007 Human Papillomavirus (HPV) Immunization (1 - 3-dose SCDM series) 2013 Cervical Cancer Screening (CCS) 2016 HPV/Cotest 2016 SARS-COV-2 Immunization ( season) 2023 12/13/2020, 06/18/2020, 05/28/2020 Influenza Immunization (#1) 2024 10/0 04/2018, 03/20/2018 Respiratory Syncytial Virus (RSV) Immunization (Adult) (1 - 1-dose 75+ series) 2061 Meningococcal Immunization (ACWY) Aged Out No longer eligible b ased on patient's age to complete this topic Pneumococcal Immunization Combined Aged Out No longer eligible b ased on patient's age to complete this topic Rotavirus Immunization Aged Out No lo nger eligible based on patient's age to complete this topic
--- OUTSIDE RECORDS SUMMARY | 2024-10-23 18:02 | XMS_ITS | Clinical Summary ---
Author Organization [facility] Address [address] [place] [address] Care Team Providers Care Production Honing Machine Operator Name Role Phone Azucena Cartwright RN Unavailable Unavailable Maureen Bahena NP Primary Care Provider [phone] Allergies Active Allergy Reactions Criticality Noted Date Comments Vegetable Oil Hives,Nausea and Vomiting 04/01/2013 Vomiting Canola oil Medications acetaminophen 325 MG tablet Take 650 mg by mouth every 6 (six) hours as needed for Pain. Active medroxyPROGESTERon e 150 MG/ML injection 1 mL every 3 (three) months. Active lisinopril 5 MG tabletIndications: Type 2 diabetes mellitus without complication, with long-term current use of insulin ([facility] HHS/HCC) Take one half tablet once daily. 45 tablet 3 1 Active OneTouch Delica Lancets 33G MiscIndications:Ty pe 2 diabetes mellitus without complication, with long-term current use of insulin (CMS/HCC HHS/HCC) Test 3 times per day before meals 100 each 3 1 Active atorvastatin 10 MG tabletIndications: Mixed hyperlipidemia Take 1 tablet (10 mg total) by mouth nightly at bedtime. 90 tablet 3 2 Active Insulin Syringe-Needle U-100 (INSULIN SYRINGE 1CC/30GX5/16) 30G X 5/16 1 ML MiscIndications:Ty pe 2 diabetes mellitus without complication, with long-term current use of insulin ([facility]/HCC HHS/HCC) 1 each by Does not apply route 2 (two) times a day. 100 each 3 2 Active Blood Glucose Monitoring Suppl (ONE TOUCH ULTRA 2) w/Device KitIndications:Typ e 2 diabetes mellitus without complication, with long-term current use of insulin ([facility]) TEST THREE TIMES DAILY BEFORE MEALS 1 kit 2 Active Glucose Blood test stripIndications:T ype 2 diabetes mellitus without complication, with long-term current use of insulin ([facility]) 1 strip by Other route 2 (two) times a day. 200 strip 3 2 Active glucagon (GLUCAGON EMERGENCY) 1 MG injectionIndicatio ns:Type 2 diabetes mellitus without complication, with long-term current use of insulin ([facility]) As needed 1 kit 1 2 Active semaglutide (OZEMPIC 0.25/0.5 MG/DOSE) 2 MG/1.5ML injection (PEN)Indications:T ype 2 diabetes mellitus without complication, with long-term current use of insulin ([facility]) Inject 0.5 mg into the skin every 7 days. Start at 0.25 weekly for 2 weeks and then proceed to 0.5 weekly 2 pen 3 2 Active NOVOLOG FLEXPEN 100 UNIT/ML injection (PEN)Indications:T ype 2 diabetes mellitus without complication, with long-term current use of insulin ([facility]) ADMINISTER 7 UNITS UNDER THE SKIN THREE TIMES DAILY BEFORE MEALS 18 mL 1 2 Active omeprazole (PRILOSEC) 20 MG capsule Take 1 capsule (20 mg total) by mouth daily. 30 capsule 4 Active ondansetron (ZOFRAN-ODT) 4 MG disintegrating tablet Take 1 tablet (4 mg total) by mouth every 8 (eight) hours as needed. 20 tablet 4 Active Active Problems Problem Noted Date Diagnosed Date Mass of right breast 03/31/2021 Mixed hyperlipidemia 04/08/2020 Palpitations 02/25/2020 Personal history of diseases of the blood and blood-forming organs and certain disorders involving the immune mechanism 02/25/2020 Snoring 02/25/2020 Abnormal findings on diagnos tic imaging of heart and coronary circulation 02/10/2020 Chest pain 02/10/2020 Overweight 02/10/2020 Sinus tachycardia 02/10/2020 Encounter for insertion or r emoval of intrauterine contraceptive device 07/17/2019 Type 2 diabetes mellitus, wi th long-term current use of insulin ([facility]) 05/16/2018 Tinea pedis of both feet 07/06/2016 History of miscarriage 09/04/2015 Hidradenitis suppurativa 08/30/2012 Resolved Problems Problem Noted Date Diagnosed Date Resolved Date Uncontrolled type 2 diabetes mellitus 03/31/2021 09/24/2021 Severe sepsis ([facility]) 12/11/2019 09/12/2020 Counseling for HPV (human pa pillomavirus) vaccination 04/13/2019 01/12/2021 Diabetes ([facility]) 07/06/2016 0 03/30/2021 Pre-existing type 2 diabetes mellitus during with complication, delivered ([facility]) 07/14/2015 09/21/2018 Immunizations Immunization Administration Dates Next Due Fluzone 6 Months+ Quad (0.5 mL Prefilled Syringe) 12/03/2020,11/09/2018,03/20/2018 Influenza Adult (Generic) 12/01/2016 Tdap (Generic) 12/01/2016 Family History Medical History Relation Comments Hypertension Other cerebrovascular accident Other malignant neoplasm Other Diabetes Sister Relation Status Comments Father Alive Mother Alive Other Sister Alive Social History Tobacco Use Types Packs/Day Years Used Date Smoking Tobacco: Never Smokeless Tobacco: Never Tobacco Cessation:Counseling Given: No Alcohol Use Standard Drinks/Week Comments No 0 (1 standard drink = 0.6 oz pur e alcohol) AUDIT-C Answer Date Recorded Frequency of Alcohol Consumption Never 03/20/2018 Average Number of Drinks Not on file 019 Frequency of Binge Drinking Not on file 03/10 PHQ-2 Answer Date Recorded PHQ-2 Score - If the patient scores above 3, please move on to questions 3-9 0 07/09/2021 Comments No Sex and Gender Information Value Date Recorded Sex Assigned at Not on file Legal Sex Female 9:00 PM CDT Gender Identity Not on file Sexual Orientation Not on file Last Filed Vital Signs Vital Sign Reading Time Taken Comments Blood Pressure 178/109 12/30/2023 5:27 PM RN LVN Pulse 90 12/30/2023 7:26 PM RN LVN Temperature 36.4 C (97.6 F) 12/30/2023 5:27 PM RN LVN Respiratory Rate 18 12/30/2023 7:26 PM RN LVN Oxygen Saturation 99% 12/30/2023 7:26 PM RN LVN Inhaled Oxygen Concentration - - Weight 93 kg (205 lb) 12/30/2023 5:27 PM RN LVN Height 162.6 cm (5' 4) 12/30/2023 5:27 PM RN LVN Body Mass Index 35.19 12/30/2023 5:27 PM RN LVN Plan of Treatment Health Maintenance Due Date Last Done Comments Kidney Health Evaluation 1986 Annual Physical 1989 Diabetes: Retinopathy Eye Exam 2004 Hepatitis C 2004 Hepatitis B Vaccines (1 of 3 - 19+ 3-dose series) 2005 Pneumococcal Vaccine: Pediatrics (0 to 5 Years) and At-Risk Patients (6 to 49 Years) (1 of 2 - PCV) 2005 HPV Vaccines (1 - 3-dose SCDM series) 2013 Lipid Panel 03/19/2021 03/19/2020, 11/09/2018 Hemoglobin A1C 01/08/2022 07/09/2021, 02/07, 12/03/2020, Additional history exists Cervical Cancer Screening Pap with HPV Testing (Age 30 to 64) Every 5 Years 05/17/2023 05/16/2018 PHQ-2 (Physician [place]) 02/08/2024 Cervical Cancer Screening Pap Smear (Age 30 to 64) Every 3 Years 09/02/2024 09/02/2021, 08/04/2020, 05/16/2018 Cervical Cancer Screening with HPV 09/02/2024 COVID-19 Vaccine ( season) 2024 12/13/2020, 06/18/2020, 05/28/2020 DTaP, Tdap and Td Vaccines (2 - Td or Tdap) 12/01/2026 12/01/2016 Meningococcal B Vaccine Aged Out No l onger eligible based on patient's age to complete this topic Meningococcal Vaccine Aged Out No treasure yojana eligible based on patient's age to complete this topic RSV Immunizations Under 20 Months Aged Out No longer eligible based on patient's age to complete this topic Goals Goal Patient Goal Type Associated Problems Recent Progress Patient-Stated? Author Monitor - verbalizes recognition of s/s wound infections General No Priscila Jon RN Procedures Procedure Name Priority Date/Time Associated Diagnosis Comments HEMOGLOBIN, GLYCOSYLATED Routine 07/09/2021 2:30 PM CDT Type 2 diabetes mellitus without complication, with long-term current use of insulin LIPID PANEL Routine 03/19/2020 2:19 PM RN LVN Type 2 diabetes mellitus without complication, with long-term current use of insulin BMI 33.0-33.9,adult from Last 3 Months or Most Recently Relevant to Health Maintenance Results * HEMOGLOBIN, GLYCOSYLATED (07/09/2021 2:30 PM CDT) HGB A1C 12.1 % [facility] [place] 07/09/2021 2:30 PM CDT Raymond Huffman MD LABORATORY Final Result -[facility] [place] [address] [address] [place] [address], [place] [phone] * (ABNORMAL) LIPID PANEL (03/19/2020 2:19 PM RN LVN) CHOLESTEROL 179 <200 mg/dL [facility] HDL 45(L) > OR = 50 mg/dL [facility] TRIGLYCERIDES 329(H) <150 mg/dL [facility] Comment: If a non-fasting specimen was collected, consider repeat triglyceride testing on a fasting specimen if clinically indicated. Gail et al. J. of Clin. Lipidol. 2015;9:129-169. LDL (CALCULATED) 90 mg/dL (calc) [facility] Comment: Reference range: <100 Desirable range <100 mg/dL for primary prevention; <70 mg/dL for patients with CHD or diabetic patients with > or = 2 CHD risk factors. LDL-C is now calculated using the Sujatha calculation, which is a validated novel method providing better accuracy than the Friedewald equation in the estimation of LDL-C. Chidi CERVANTES et al. DOC. 2013;310(19): 4403-7216 (http://education.[employer]/faq/QGG659) CHOL/HDL RATIO 4.0 <5.0 (calc) [facility] NON HDL CHOLESTEROL 134(H) <130 mg/dL (calc) [facility] Comment: For patients with diabetes plus 1 major ASCVD risk factor, treating to a non-HDL-C goal of <100 mg/dL (LDL-C of <70 mg/dL) is considered a therapeutic option. 03/19/2020 2:19 PM RN LVN 03/19/2020 10:38 PM RN LVN us Leatha [facility] Final Resul t [facility] [id number] [address] [id number] from Last 3 Months or Most Recently Relevant to Health Maintenance Advance Directives * Full Code (Latest Code Status on File) Date Activated Date Inactivated Comments 12/25/2019 7:21 AM 03/03/2023 3:58 PM * Full Code Date Activated Date Inactivated Comments 12/11/2019 10:44 PM 12/15/2019 1:15 AM Care Teams Production Honing Machine Operator Relationship Specialty Start Date End Date Maureen Bahena NP [address] [place] [address] PCP - General NURSE PRACTITIONER ADULT HEALTH 03/03/23 Azucena Cartwright RN Care Manager (Ambulatory) REGISTERED NURSE 12/14/19
--- OUTSIDE RECORDS SUMMARY | 2024-10-23 18:02 | XMS_ITS | Clinical Summary ---
Author Organization [facility] Address [address] [place] [id number] Care Team Providers Care Cartography Teacher Name Role Phone Maureen Bahena Ashli DRY GOODS INSPECTOR Primary Care Provider [phone] Allergies No known active allergies Medications atorvastatin (LIPITOR) 20 mg tablet Take 1 tablet (20 mg total) by mouth every morning Active insulin lispro (HumaLOG, ADMELOG) 100 unit/mL pen for injection ADMINISTER 45 UNITS UNDER THE SKIN TWICE DAILY 4 Active glipiZIDE (GLUCOTROL) 10 mg tablet daily 2 Active Active Problems Problem Noted Date Diagnosed Date Left hand pain 01/23/2024 Hidradenitis suppurativa 08/30/2012 Immunizations Immunization Administration Dates Next Due Pfizer SARS-CoV-2 Monovalent Vaccination (12+ Yrs) PURPLE 12/13/2020 Social History Tobacco Use Types Packs/Day Years Used Date Smoking Tobacco: Never Comments Unknown Sex and Gender Information Value Date Recorded Sex Assigned at Not on file Legal Sex Female 10:24 AM ROOM SERVICE SUPERVISOR Gender Identity Female 04/01/2021 5:04 PM ROOM SERVICE SUPERVISOR Sexual Orientation Not on file Obstetrics History Last Filed Vital Signs Vital Sign Reading Time Taken Comments Blood Pressure 134/89 06/29/2012 1:23 PM CDT Pulse 113 06/29/2012 1:23 PM CDT Temperature - - Respiratory Rate - - Oxygen Saturation 100% 06/29/2012 1:23 PM CDT Inhaled Oxygen Concentration - - Weight 92.8 kg (204 lb 9.7 oz) 06/29/2012 1:23 P M CDT Height 160 cm (5' 3) 06/29/2012 1:23 PM CDT Body Mass Index 36.24 06/29/2012 1:23 PM CDT Plan of Treatment Health Maintenance Due Date Last Done Comments Depression Screening 1986 Varicella Vaccines (1 of 2 - 13+ 2-dose series) 08/28/1999 Hepatitis B Screening 2004 Regular Well Visit/Exam 18-64 2004 HPV Vaccines (1 - 3-dose SCDM series) 2013 Cervical Cancer Screening 05/17/2019 05/16/2018 Covid-19 Vaccine (2 - 2024- season) 2024 12/13/2020 Influenza Vaccine (#1) 2024 , 11/09/2018, 03/20/2018, Additional history exists DTaP/Tdap/Td Vaccine (2 - Td or Tdap) 12/01/2026 12/01/2016 Hepatitis C Screening Completed 10/04/2012 Pneumococcal vaccine <65 Aged Out No longer eligible based on patient's age to complete this topic Procedures Procedure Name Priority Date/Time Associated Diagnosis Comments SERUM HEPATITIS C AB Routine 10/04/2012 6:39 AM CDT from Last 3 Months or Most Recently Relevant to Health Maintenance Results * Serum Hepatitis C ab (10/04/2012 6:39 AM CDT) HCV ab Negative NEG HISTORICAL RESULTS Serum 10/04/2012 6:39 AM CDT Narrative HISTORICAL RESULTS - 10/05/2012 5:33 AM CDT Interpretive Data If confirmation is required, call Laboratory Customer Service to request sample to be sent to [facility] for Hepatitis C Virus (HCV) RNA Detection and Quantitation by Real-Time Reverse Switch Foreman-PCR (RT-PCR). Current interpretive data was last revised on 2011 us Christine Garibay MD LAB BLOOD ORDERABLES Final Resu lt HISTORICAL RESULTS from Last 3 Months or Most Recently Relevant to Health Maintenance Insurance MEDICARE MEDICARE Care Teams Cartography Teacher Relationship Specialty Start Date End Date Maureen Bahena NP [address] [place] [address] PCP - General Nurse Practitioner 03/25/23
--- OUTSIDE RECORDS SUMMARY | 2024-10-23 18:02 | XMS_ITS | Encounter Summary ---
Author Organization [facility] Address [facility] [place] [address] Care Team Providers Care City Marshal Name Role Phone Azucena Cartwright RN Unavailable Unavailable Leatha Gomez APNP Primary Care Provider [phone] Maureen Bahena NP Primary Care Provider [phone] Encounter Details Date Type Department Care Team (Late st Contact Info) Description 12/20/2019 Hospital Follow-up Call [facility] [address] [place] [address] Delmi Brunner RN Social History Tobacco Use Types Packs/Day Years Used Date Smoking Tobacco: Never Smokeless Tobacco: Never Alcohol Use Standard Drinks/Week Comments No 0 (1 standard drink = 0.6 oz pur e alcohol) AUDIT-C Answer Date Recorded Frequency of Alcohol Consumption Never 03/20/2018 Average Number of Drinks Not on file 019 Frequency of Binge Drinking Not on file 03/10 PHQ-2 Answer Date Recorded PHQ-2 Score 0 05/08/2018 Comments No Sex and Gender Information Value Date Recorded Sex Assigned at Not on file Legal Sex Female 9:00 PM CDT Gender Identity Not on file Sexual Orientation Not on file COVID-19 Exposure Response Date Recorded In the last month, have you been in contact with someone who was confirmed or suspected to have Coronavirus / COVID-19? No / Unsure 12/19/2019 8:11 AM MAINTENANCE LEADER documented as of this encounter Functional Status * RETIRED Are you deaf or do you have serious difficulty hearing Answer Date of Assessment Author Status No 12/12/2019 12:03 PM MAINTENANCE LEADER Acti ve * RETIRED Are you blind or do you have serious difficulty seeing, even when wearing glasses? Answer Date of Assessment Author Status No 12/12/2019 12:03 PM MAINTENANCE LEADER Acti ve * Do you have serious difficulty walking or climbing stairs? Answer Date of Assessment Author Status No 12/12/2019 12:03 PM Azucena Phoenix RN Active * Do you have difficulty dressing or bathing? Answer Date of Assessment Author Status No 12/12/2019 12:03 PM Azucena Phoenix RN Active * Because of a physical, mental, or emotional condition, do you have difficulty doing errands alone such as visiting a doctor's office or shopping? Answer Date of Assessment Author Status No 12/12/2019 12:03 PM Azucena Phoenix RN Active documented as of this encounter Mental Status * Because of a physical, mental, or emotional condition, do you have serious difficulty concentrating, remembering, or making decisions? Answer Entry Date Author Status No 12/12/2019 12:03 PM Azucena Phoenix RN Active documented in this encounter Plan of Treatment Not on file documented as of this encounter Goals Goal Patient Goal Type Associated Problems Recent Progress Patient-Stated? Author Monitor - verbalizes recognition of s/s wound infections General No Priscila Jon RN documented as of this encounter Visit Diagnoses Not on filedocumented in this encounter Care Teams City Marshal Relationship Specialty Start Date End Date Leatha Gomez APNP [address] [place] [id number] PCP - General NURSE PRACTITIONER 03/19/20 03/02/23 Maureen Bahena NP [address] [place] [address] PCP - General NURSE PRACTITIONER ADULT HEALTH 03/03/23 Azucena Cartwright, services rep (Ambulatory) REGISTERED NURSE 12/14/19 documented as of this encounter
--- OUTSIDE RECORDS SUMMARY | 2024-10-23 18:02 | XMS_ITS | Patient Health Record ---
Author Organization [facility] Address [address] [place] [address] Care Team Providers Care Clinical Registered Nurse Name Role Phone Kerry Chang Primary Care Provider Allergies Allergen (clinical drug ingredient) Drug/Non Drug Allergy documented on EMR Reaction Allergy Type Onset Date Status canola oil canola oil (uncoded) hives Allergy Active Reason For Referral No Information Medications Medication SIG (Take, Route, Frequency, Duration) Notes Start Date End Date Status glipiZIDE 10 MG 1 tablet 30 minutes before breakfast Orally Once a day; Duration: 30 day(s) 01/07/2022 Active Atorvastatin Calcium 20 MG 1 tablet Oral ly Once a day; Duration: 30 day(s) 12/17/2021 Active Ferrous Sulfate 325 (65 Fe) MG 1 tablet Orally Once a day; Duration: 30 day(s) 12/28/2021 Active Chlorhexidine Gluconate 0.12 % once a day as needed Mouth/Throat once a day; Duration: 14 days 01/07/2022 Active Social History Tobacco Use: Social History Observation Description Date Details (start date - stop date) Never Smoker NA - NA Sex Assigned At : Social History Observation Description Sex Assigned At Female Dont use, Tobacco Use/Smoking Question Answer Notes Are you a nonsmoker Alcohol Screen (Audit-C) Question Answer Notes Did you have a drink containing alcohol in the p ast year? No Problems Problem Type SNOMED Code ICD Code Onset Dates Problem Status W/U Status Risk Notes Problem Hyperlipidemia (75330808) Hyperlipidemia (E78.5) 12/18/19 22 Active confirmed Problem Type II diabetes mellitus without complication (485706747) Diabetes (E11.9) 12/18/19 Active confirmed Problem (74288730) (Z33.1) Active confirmed Problem Anemia (599929322) Anemia (D64.9) Active confirmed Problem Adult health examination (175655055) Routine adult health maintenance (Z00.00) Active confirmed Problem Hidradenitis (07248233) Hydradenitis (L73.2) Active confirmed Problem Obesity (584011883) Obesity, unspecified classification, unspecified obesity type, unspecified whether serious comorbidity present (E66.9) Active confirmed Problem Irregular menstruation (92047735) Abnormal menstrual periods (N92.6) Active confirmed Problem Chest pain (34256130) Chest pain in adult (R07.9) Active confirmed Problem Body mass index 30.00 to 34.99 (507855678640935) Body mass index [BMI] 33.0-33.9, adult (Z68.33) Active confirmed Problem Obese class I (148990812499124) BMI 33.0-33.9,adult (Z68.33) Active confirmed Plan Of Treatment No Information Insurance Providers Payer Name Payer Address Payer Phone Subscriber Number Group Number Insured Name Patient Relationship to Insured Coverage Start Date Coverage End Date [facility] [address] [address] [place] [address] [id number] Cande Davies Self - patient is the insured 2 MEDICARE PART A [address] [place] [address] [id number] Cande Davies Self - patient is the insured 2 [employer] MEDICARE ADV [address] [address] [place] [address] [id number] Cande Davies Self - patient is the insured 2 3 Medical (General) History Surgical History Surgery Date(Month/Year) Sweat glands removed 2014 [facility] 2016 2016 Boils on back and butt removed-put to [facility] for procedure 2020 Hospitalization History Reason Date(Month/Year) Hyperglycemia-multiple See surgeries
--- NOTE | 2024-10-23 18:30 | ED_ITS ---
HPI - General Adult General Chief complaint: Unspecified <Jacqui Bui APRN - Last Filed: 10/24/24 02:03> Stated complaint: not feeling my best <Jacqui Bui APRN - Last Filed: 10/24/24 02:03> Time Seen by Provider: 10/23/24 18:26 <Jacqui Bui APRN - Last Filed: 10/24/24 02:03> History of Present Illness HPI narrative: Patient is a 39-year-old female who presents to the ER with complaints of right lower quadrant abdominal pain, left knee pain, fevers, shortness of breath, slight wheezing, slight chest pain, and back pain. Patient reports her symptoms started approximately 2 weeks ago, but have worsened over the last couple of days. She reports she does not have supplies to check her blood sugar at home but takes insulin and glipizide every day. Patient endorses a history of hydradenitis, type 2 diabetes, asthma. She denies any urinary symptoms, lower extremity swelling, or upper abdominal pain. <Jacqui Bui APRN - Last Filed: 10/24/24 02:03> Related Data Home medications: Home Medications ?Medication ?Instructions ?Recorded ?Confirmed ?Last Taken ?Type glucagon HCl 1 mg solution for 1 mg subcut Q20M PRN Hy poglycemia 01/10/20 10/24/24 Unknown History injection (Glucagon (HCl) Emergency Kit) glipizide 10 mg tablet 10 mg PO DAILY 11/23/2210/0810/23/24 16:51 History insulin NPH-regular 70-30 U-100 45 unit subcut BID 10/24/24 10/03/22 16:00 History insulin 100 unit/mL subcutaneous pen (Novolin 70-30 FlexPen U-100 Insulin) <Jacqui Bui APRN - Last Filed: 10/24/24 02:03> Allergies/adverse reactions: Allergies Allergy/AdvReac Type Severity Reaction Status Date / Time metformin AdvReac Intermediate Vomiting Verified 10/23/24 20:56 <Jacqui uBi APRN - Last Filed: 10/24/24 02:03> Review of Systems 2 Review of Systems: All systems reviewed & are unremarkable except as noted in HPI and below <Jacqui Bui APRN - Last Filed: 10/24/24 02:03> [facility] Past Medical History Medical History: Medical History Obstructive sleep apnea Untreated Iron deficiency anemia History of blood transfusion Hidradenitis suppurativa Insulin dependent type 2 diabetes mellitus <Jacqui Bui APRN - Last Filed: 10/24/24 02:03> Surgical History Surgical History: Surgical History History of section <Jacqui Bui APRN - Last Filed: 10/24/24 02:03> Family History Family History: Family History Sibling Family history of type 2 diabetes mellitus Father Family history of type 2 diabetes mellitus Mother Hypertension <Jacqui Bui APRN - Last Filed: 10/24/24 02:03> Social History Social History: Social History Social History: Surrogate medical decision maker: Sue Palma, mother. Code status: Full code. Smoking status: Never smoker Second hand tobacco smoke exposure: Yes (at work) Alcohol intake: never Substance use: never Lack of Transportation: No Lack of Food: Never True Current Housing: I Have Housing Concerned About Future Housing: No Difficulty Paying Gas/Electric Bills: No Difficulty Paying for Meds: YES Currently Unemployed: No Education: High School Diploma/GED Difficulty w/ Childcare or Family Care: No Spiritual care concerns: No <Jacqui Bui APRN - Last Filed: 10/24/24 02:03> Exam 2 Narrative: GENERAL: Well appearing, obese, non-toxic, in no acute distress. HEAD: Normocephalic, atraumatic. NECK: Supple. No adenopathy, no masses. RESPIRATORY: Airway patent, respirations nonlabored. Clear to auscultation bilaterally, no rales, rhonchi, wheezing. CARDIOVASCULAR: Tachycardia without murmurs, rubs, or gallops. Peripheral pulses 2+ and equal bilaterally. ABDOMINAL: Soft, RLQ tenderness with palpation, nondistended, no hepatosplenomegaly. Normoactive BS. MUSCULOSKELETAL: Moves all extremities. Strength/ROM intact without gross deformities. SKIN: Warm, dry, normal color. No rashes. NEURO: A&O X3. Speech clear. Cranial nerves II-XII intact. No ataxic movements. PSYCHIATRIC: Appropriate mood and affect. Normal interaction. <Jacqui Bui APRN - Last Filed: 10/24/24 02:03> Course HEALTH SAFETY SPECIALIST/PA Physician Supervision This visit was performed by both a physician and an APC. I performed all aspects of the MDM as documented. <Aston Malave MD - Last Filed: 10/24/24 03:18> Vital Signs Vital signs: Vital Signs Temperature 97.8 F 10/23/24 19:36 Pulse Rate 118 H 10/23/24 19:36 Respiratory Rate 18 10/23/24 19:36 Blood Pressure 123/74 10/23/24 19:36 Pulse Oximetry 98 10/23/24 19:36 Oxygen Delivery Room Air 10/23/24 19:36 Temperature 97.8 F 10/23/24 19:36 Pulse Rate 103 H 10/24/24 01:50 Respiratory Rate 18 10/24/24 01:50 Blood Pressure 158/90 H 10/24/24 01:50 Pulse Oximetry 100 10/24/24 01:50 Oxygen Delivery Room Air 10/23/24 19:36 <Jacqui Bui APRN - Last Filed: 10/24/24 02:03> Vital Signs Temperature 97.8 F 10/23/24 19:36 Pulse Rate 118 H 10/23/24 19:36 Respiratory Rate 18 10/23/24 19:36 Blood Pressure 123/74 10/23/24 19:36 Pulse Oximetry 98 10/23/24 19:36 Oxygen Delivery Room Air 10/23/24 19:36 Temperature 97.8 F 10/23/24 19:36 Pulse Rate 103 H 10/24/24 01:50 Respiratory Rate 18 10/24/24 01:50 Blood Pressure 158/90 H 10/24/24 01:50 Pulse Oximetry 100 10/24/24 01:50 Oxygen Delivery Room Air 10/23/24 19:36 <Aston Malave MD - Last Filed: 10/24/24 03:18> Medical Decision Making MDM Narrative Medical decision making narrative: Patient is a 39-year-old female who presents to the ER with complaints of right lower quadrant abdominal pain, left knee pain, fevers, shortness of breath, slight wheezing, slight chest pain, and back pain. Patient reports her symptoms started approximately 2 weeks ago, but have worsened over the last couple of days. She reports she does not have supplies to check her blood sugar at home but takes insulin and glipizide every day. Patient endorses a history of hydradenitis, type 2 diabetes, asthma. She denies any urinary symptoms, lower extremity swelling, or upper abdominal pain. Labs Ordered: CBC, CMP, D-dimer, COVID/flu/RSV swab, troponin, lactic acid, hemoglobin A1c, beta hydroxybutyrate Imaging Ordered: Left knee x-ray, CT abdomen pelvis Medications Ordered: 2.7 L normal saline IV bolus, ceftriaxone IV, hydralazine IV, Tylenol p.o. Results: Patient's CT scan indicates subcutaneous fat stranding involving the left inguinal region with presumed reactive left inguinal lymph nodes. Subtle focal area of striated hypoattenuation of the lateral aspect of the right kidney is most consistent with a subtle pyelonephritis. No perinephric space abscess. No hydronephrosis or ureteral stone. Diagnosis: Pyelonephritis, hyperglycemia CRITICAL CARE ADDENDUM: Indication: sepsis Time type: intermittent I provided a total of 55 minutes of critical care excluding separately billable procedures. This includes time w/ EMS, initial bedside evaluation, reviewing old records, review of testing done while under my care, discussion w/ the family, nurses, interior design consultant and guiding the patient?s care while in the emergency department. Approximate time distribution: 15 minutes ? Initial evaluation 10 minutes ? Documenting medical record 10 minutes ? Review of results (EKGs, labs, imaging) 10 minutes ? Serial repeat bedside evaluation 10 minutes ? Discussing case with multiple providers Please see main chart for details. Excludes separately billable procedures. Results of imaging and lab work shared with patient. It was advised patient be admitted to the hospital for further evaluation and treatment. Patient and her family verbalized understanding and are in agreement with plan. [id number] with hospitalist, Sabina Cline NP, who was in agreement with plan for admission. Pt will be admitted to the med/surg floor with telemetry. < Jacqui Bui APRN - Last Filed: 10/24/24 02:03> Differential Diagnosis Differential Diagnosis: Pyelonephritis, urinary tract infection, sepsis, DKA, left knee effusion < Jacqui Bui APRN - Last Filed: 10/24/24 02:03> Medical Records Medical records reviewed: Yes I reviewed the external patient's medical records. <Aston Malave MD - Last Filed: 10/24/24 03:18> Vital Signs Vital Signs: Vital Signs Temperature 97.8 F 10/23/24 19:36 Pulse Rate 118 H 10/23/24 19:36 Respiratory Rate 18 10/23/24 19:36 Blood Pressure 123/74 10/23/24 19:36 Pulse Oximetry 98 10/23/24 19:36 Oxygen Delivery Room Air 10/23/24 19:36 Temperature 97.8 F 10/23/24 19:36 Pulse Rate 103 H 10/24/24 01:50 Respiratory Rate 18 10/24/24 01:50 Blood Pressure 158/90 H 10/24/24 01:50 Pulse Oximetry 100 10/24/24 01:50 Oxygen Delivery Room Air 10/23/24 19:36 <Jacqui Bui APRN - Last Filed: 10/24/24 02:03> Vital Signs Temperature 97.8 F 10/23/24 19:36 Pulse Rate 118 H 10/23/24 19:36 Respiratory Rate 18 10/23/24 19:36 Blood Pressure 123/74 10/23/24 19:36 Pulse Oximetry 98 10/23/24 19:36 Oxygen Delivery Room Air 10/23/24 19:36 Temperature 97.8 F 10/23/24 19:36 Pulse Rate 103 H 10/24/24 01:50 Respiratory Rate 18 10/24/24 01:50 Blood Pressure 158/90 H 10/24/24 01:50 Pulse Oximetry 100 10/24/24 01:50 Oxygen Delivery Room Air 10/23/24 19:36 <Aston Malave MD - Last Filed: 10/24/24 03:18> Lab Data Lab results reviewed: Yes I reviewed the patient's lab results. <Jacqui Bui APRN - Last Filed: 10/24/24 02:03> Result diagrams: 10/23/24 18:53 10/23/24 18:53 <Jacqui Bui, ASSISTANT SUPERINTENDENT FOR CURRICULUM - Last Filed: 10/24/24 02:03> Labs: Lab Results 10/23/24 10/23/24 10/23/24 Range/Units 18:53 18:54 19:07 WBC 8.9 (4.5-10.0) K/mm3 RBC 4.94 (4.2-5.4) M/mm3 Hgb 11.0 L (12.0-15.0) g/dL Hct 35.8 L (37.0-47.0) % MCV 72.5 L (80-100) fl MCH 22.3 L (26-34) pg MCHC 30.7 L (32-36) g/dl RDW 16.0 H (11.5-14.5) % Plt Count 359 D (150-375) k/mm3 MPV 9.2 (7.4-10.4) fl Immature Gran % (Auto) 3.7 H (0-0.5) % Neut % (Auto) 62.4 (45.5-73.1) % Lymph % (Auto) 26.5 (18.3-44.2) % Caroline % (Auto) 5.3 (2.6-8.5) % Eos % (Auto) 1.5 (0-4.4) % Baso % (Auto) 0.6 (0.2-1.2) % Lymph # (Auto) 2.35 (0.9-3.2) K/mm3 [place] # (Auto) 0.5 (0.1-0.6) K/mm3 Eos # (Auto) 0.1 (0-0.3) K/mm3 Baso # (Auto) 0.1 (0.0-0.1) K/mm3 Abs Immat Gran (auto) 0.33 H (0.00-0.031) K/mm3 Absolute Neuts (auto) 5.6 (1.3-6.7) K/mm3 Absolute Nucleated RBC 0.000 (0.0-0.012) K/mm3 Band Neutrophils % Not Reportable Nucleated RBC % 0.0 (0.0-0.2) % Platelet Estimate Adequate (Adequate) Anisocytosis 1+ Schistocytes None seen PT 15.7 H (11.1-14.7) Seconds INR 1.3 APTT 25.4 (22.3-36.8) Seconds D-Dimer 0.64 H Cancelled (<0.48) ug/mL Sodium 132 L (137-145) mmol/L Potassium 4.3 (3.4-5.0) mmol/L Chloride 98 (98-107) mmol/L Carbon Dioxide 23 (22-30) mmol/L Anion Gap 11 (4-12) mmol/L BUN 7 (7-17) mg/dL Creatinine 0.54 L (0.7-1.0) mg/dL Estim Creat Clear Calc 129 ml/min Estimated GFR > 60 (59 - ) Glucose 437 H (65-110) mg/dL POC Capillary Glucose (65-105) mg/dl Hemoglobin A1c 12.1 H (<5.7) % Lactic Acid 3.9 H (0.7-2.0) mmol/L Calcium 9.0 (8.4-10.2) mg/dL Total Bilirubin 0.3 (0.2-1.3) mg/dL AST 33 (14-36) U/L ALT 22 (6-35) U/L Alkaline Phosphatase 119 (38-126) U/L Troponin I < 0.012 (0.000-0.034) ng/mL C-Reactive Protein 5.3 H (<1.0) mg/dL Total Protein 8.0 (6.3-8.2) g/dL Albumin 3.7 (3.5-5.1) g/dL Lipase 39 (23-300) U/L Beta-Hydroxybutyrate/Acetoacetate 0.12 (0.02-0.27) mmol/L Urine Color Yellow (Yellow) Urine Appearance Cloudy H (Clear) Urine pH 5.5 (5.0-9.0) Ur Specific [place] 1.034 (1.001-1.035) Urine Protein Negative (Negative) mg/dL Urine Glucose (UA) 3+ H (Negative) mg/dL Urine Ketones Negative (Negative) mg/dL Ur Blood (Man) 2+ H (Negative) Urine Nitrate Positive H (Negative) Urine Bilirubin Negative (Negative) Urine Urobilinogen 0.2 (<2.0) mg/dL Add Ur Microanalysis Reviewed Leukocyte Esterase Rfl 1+ H (Negative) KEISHA/UL Urine RBC 0-2 (0-2) /hpf Urine WBC >100 H (0-3) /hpf Ur Squamous Epith Cells None seen (Few) /hpf Urine Bacteria 4+ H /hpf Urine Casts 6-10 POC Urine HCG, Qual (Negative) Influenza A (RT-PCR) Negative (Negative) Influenza B (RT-PCR) Negative (Negative) RSV (RT-PCR) Negative (Negative) SARS-CoV-2 RNA (RT-PCR) Negative (Negative) 10/23/24 10/23/24 10/23/24 Range/Units 19:09 19:55 23:01 WBC (4.5-10.0) K/mm3 RBC (4.2-5.4) M/mm3 Hgb (12.0-15.0) g/dL Hct (37.0-47.0) % MCV (80-100) fl MCH (26-34) pg MCHC (32-36) g/dl RDW (11.5-14.5) % Plt Count (150-375) k/mm3 MPV (7.4-10.4) fl Immature Gran % (Auto) (0-0.5) % Neut % (Auto) (45.5-73.1) % Lymph % (Auto) (18.3-44.2) % Caroline % (Auto) (2.6-8.5) % Eos % (Auto) (0-4.4) % Baso % (Auto) (0.2-1.2) % Lymph # (Auto) (0.9-3.2) K/mm3 [place] # (Auto) (0.1-0.6) K/mm3 Eos # (Auto) (0-0.3) K/mm3 Baso # (Auto) (0.0-0.1) K/mm3 Abs Immat Gran (auto) (0.00-0.031) K/mm3 Absolute Neuts (auto) (1.3-6.7) K/mm3 Absolute Nucleated RBC (0.0-0.012) K/mm3 Band Neutrophils % Nucleated RBC % (0.0-0.2) % Platelet Estimate (Adequate) Anisocytosis Schistocytes PT (11.1-14.7) Seconds INR APTT (22.3-36.8) Seconds D-Dimer (<0.48) ug/mL Sodium (137-145) mmol/L Potassium (3.4-5.0) mmol/L Chloride (98-107) mmol/L Carbon Dioxide (22-30) mmol/L Anion Gap (4-12) mmol/L BUN (7-17) mg/dL Creatinine (0.7-1.0) mg/dL Estim Creat Clear Calc ml/min Estimated GFR (59 - ) Glucose (65-110) mg/dL POC Capillary Glucose 377 H (65-105) mg/dl Hemoglobin A1c (<5.7) % Lactic Acid 2.4 H (0.7-2.0) mmol/L Calcium (8.4-10.2) mg/dL Total Bilirubin (0.2-1.3) mg/dL AST (14-36) U/L ALT (6-35) U/L Alkaline Phosphatase (38-126) U/L Troponin I (0.000-0.034) ng/mL C-Reactive Protein (<1.0) mg/dL Total Protein (6.3-8.2) g/dL Albumin (3.5-5.1) g/dL Lipase (23-300) U/L Beta-Hydroxybutyrate/Acetoacetate (0.02-0.27) mmol/L Urine Color (Yellow) Urine Appearance (Clear) Urine pH (5.0-9.0) Ur Specific [place] (1.001-1.035) Urine Protein (Negative) mg/dL Urine Glucose (UA) (Negative) mg/dL Urine Ketones (Negative) mg/dL Ur Blood (Man) (Negative) Urine Nitrate (Negative) Urine Bilirubin (Negative) Urine Urobilinogen (<2.0) mg/dL Add Ur Microanalysis Leukocyte Esterase Rfl (Negative) KEISHA/UL Urine RBC (0-2) /hpf Urine WBC (0-3) /hpf Ur Squamous Epith Cells (Few) /hpf Urine Bacteria /hpf Urine Casts POC Urine HCG, Qual Negative (Negative) Influenza A (RT-PCR) (Negative) Influenza B (RT-PCR) (Negative) RSV (RT-PCR) (Negative) SARS-CoV-2 RNA (RT-PCR) (Negative) <Jacqui L. Hao, ASSISTANT SUPERINTENDENT FOR CURRICULUM - Last Filed: 10/24/24 02:03> Lab Results 10/23/24 10/23/24 10/23/24 Range/Units 18:53 18:54 19:07 WBC 8.9 (4.5-10.0) K/mm3 RBC 4.94 (4.2-5.4) M/mm3 Hgb 11.0 L (12.0-15.0) g/dL Hct 35.8 L (37.0-47.0) % MCV 72.5 L (80-100) fl MCH 22.3 L (26-34) pg MCHC 30.7 L (32-36) g/dl RDW 16.0 H (11.5-14.5) % Plt Count 359 D (150-375) k/mm3 MPV 9.2 (7.4-10.4) fl Immature Gran % (Auto) 3.7 H (0-0.5) % Neut % (Auto) 62.4 (45.5-73.1) % Lymph % (Auto) 26.5 (18.3-44.2) % Caroline % (Auto) 5.3 (2.6-8.5) % Eos % (Auto) 1.5 (0-4.4) % Baso % (Auto) 0.6 (0.2-1.2) % Lymph # (Auto) 2.35 (0.9-3.2) K/mm3 [place] # (Auto) 0.5 (0.1-0.6) K/mm3 Eos # (Auto) 0.1 (0-0.3) K/mm3 Baso # (Auto) 0.1 (0.0-0.1) K/mm3 Abs Immat Gran (auto) 0.33 H (0.00-0.031) K/mm3 Absolute Neuts (auto) 5.6 (1.3-6.7) K/mm3 Absolute Nucleated RBC 0.000 (0.0-0.012) K/mm3 Band Neutrophils % Not Reportable Nucleated RBC % 0.0 (0.0-0.2) % Platelet Estimate Adequate (Adequate) Anisocytosis 1+ Schistocytes None seen PT 15.7 H (11.1-14.7) Seconds INR 1.3 APTT 25.4 (22.3-36.8) Seconds D-Dimer 0.64 H Cancelled (<0.48) ug/mL Sodium 132 L (137-145) mmol/L Potassium 4.3 (3.4-5.0) mmol/L Chloride 98 (98-107) mmol/L Carbon Dioxide 23 (22-30) mmol/L Anion Gap 11 (4-12) mmol/L BUN 7 (7-17) mg/dL Creatinine 0.54 L (0.7-1.0) mg/dL Estim Creat Clear Calc 129 ml/min Estimated GFR > 60 (59 - ) Glucose 437 H (65-110) mg/dL POC Capillary Glucose (65-105) mg/dl Hemoglobin A1c 12.1 H (<5.7) % Lactic Acid 3.9 H (0.7-2.0) mmol/L Calcium 9.0 (8.4-10.2) mg/dL Total Bilirubin 0.3 (0.2-1.3) mg/dL AST 33 (14-36) U/L ALT 22 (6-35) U/L Alkaline Phosphatase 119 (38-126) U/L Troponin I < 0.012 (0.000-0.034) ng/mL C-Reactive Protein 5.3 H (<1.0) mg/dL Total Protein 8.0 (6.3-8.2) g/dL Albumin 3.7 (3.5-5.1) g/dL Lipase 39 (23-300) U/L Beta-Hydroxybutyrate/Acetoacetate 0.12 (0.02-0.27) mmol/L Urine Color Yellow (Yellow) Urine Appearance Cloudy H (Clear) Urine pH 5.5 (5.0-9.0) Ur Specific [place] 1.034 (1.001-1.035) Urine Protein Negative (Negative) mg/dL Urine Glucose (UA) 3+ H (Negative) mg/dL Urine Ketones Negative (Negative) mg/dL Ur Blood (Man) 2+ H (Negative) Urine Nitrate Positive H (Negative) Urine Bilirubin Negative (Negative) Urine Urobilinogen 0.2 (<2.0) mg/dL Add Ur Microanalysis Reviewed Leukocyte Esterase Rfl 1+ H (Negative) KEISHA/UL Urine RBC 0-2 (0-2) /hpf Urine WBC >100 H (0-3) /hpf Ur Squamous Epith Cells None seen (Few) /hpf Urine Bacteria 4+ H /hpf Urine Casts 6-10 POC Urine HCG, Qual (Negative) Influenza A (RT-PCR) Negative (Negative) Influenza B (RT-PCR) Negative (Negative) RSV (RT-PCR) Negative (Negative) SARS-CoV-2 RNA (RT-PCR) Negative (Negative) 10/23/24 10/23/24 10/23/24 Range/Units 19:09 19:55 23:01 WBC (4.5-10.0) K/mm3 RBC (4.2-5.4) M/mm3 Hgb (12.0-15.0) g/dL Hct (37.0-47.0) % MCV (80-100) fl MCH (26-34) pg MCHC (32-36) g/dl RDW (11.5-14.5) % Plt Count (150-375) k/mm3 MPV (7.4-10.4) fl Immature Gran % (Auto) (0-0.5) % Neut % (Auto) (45.5-73.1) % Lymph % (Auto) (18.3-44.2) % Caroline % (Auto) (2.6-8.5) % Eos % (Auto) (0-4.4) % Baso % (Auto) (0.2-1.2) % Lymph # (Auto) (0.9-3.2) K/mm3 [place] # (Auto) (0.1-0.6) K/mm3 Eos # (Auto) (0-0.3) K/mm3 Baso # (Auto) (0.0-0.1) K/mm3 Abs Immat Gran (auto) (0.00-0.031) K/mm3 Absolute Neuts (auto) (1.3-6.7) K/mm3 Absolute Nucleated RBC (0.0-0.012) K/mm3 Band Neutrophils % Nucleated RBC % (0.0-0.2) % Platelet Estimate (Adequate) Anisocytosis Schistocytes PT (11.1-14.7) Seconds INR APTT (22.3-36.8) Seconds D-Dimer (<0.48) ug/mL Sodium (137-145) mmol/L Potassium (3.4-5.0) mmol/L Chloride (98-107) mmol/L Carbon Dioxide (22-30) mmol/L Anion Gap (4-12) mmol/L BUN (7-17) mg/dL Creatinine (0.7-1.0) mg/dL Estim Creat Clear Calc ml/min Estimated GFR (59 - ) Glucose (65-110) mg/dL POC Capillary Glucose 377 H (65-105) mg/dl Hemoglobin A1c (<5.7) % Lactic Acid 2.4 H (0.7-2.0) mmol/L Calcium (8.4-10.2) mg/dL Total Bilirubin (0.2-1.3) mg/dL AST (14-36) U/L ALT (6-35) U/L Alkaline Phosphatase (38-126) U/L Troponin I (0.000-0.034) ng/mL C-Reactive Protein (<1.0) mg/dL Total Protein (6.3-8.2) g/dL Albumin (3.5-5.1) g/dL Lipase (23-300) U/L Beta-Hydroxybutyrate/Acetoacetate (0.02-0.27) mmol/L Urine Color (Yellow) Urine Appearance (Clear) Urine pH (5.0-9.0) Ur Specific [place] (1.001-1.035) Urine Protein (Negative) mg/dL Urine Glucose (UA) (Negative) mg/dL Urine Ketones (Negative) mg/dL Ur Blood (Man) (Negative) Urine Nitrate (Negative) Urine Bilirubin (Negative) Urine Urobilinogen (<2.0) mg/dL Add Ur Microanalysis Leukocyte Esterase Rfl (Negative) KEISHA/UL Urine RBC (0-2) /hpf Urine WBC (0-3) /hpf Ur Squamous Epith Cells (Few) /hpf Urine Bacteria /hpf Urine Casts POC Urine HCG, Qual Negative (Negative) Influenza A (RT-PCR) (Negative) Influenza B (RT-PCR) (Negative) RSV (RT-PCR) (Negative) SARS-CoV-2 RNA (RT-PCR) (Negative) <Aston Malave MD - Last Filed: 10/24/24 03:18> Imaging Data Attestation: I personally reviewed and interpreted this imaging study as follows: < Jacqui Bui APRN - Last Filed: 10/24/24 02:03> Radiologist's impression: Patient's CT scan indicates subcutaneous fat stranding involving the left inguinal region with presumed reactive left inguinal lymph nodes. Subtle focal area of striated hypoattenuation of the lateral aspect of the right kidney is most consistent with a subtle pyelonephritis. No perinephric space abscess. No hydronephrosis or ureteral stone. Impressions Chest X-Ray 10/23/24 20:17 IMPRESSION: 1. No acute cardiopulmonary findings. <Jacqui Bui ASSISTANT SUPERINTENDENT FOR CURRICULUM - Last Filed: 10/24/24 02:03> Critical Care Time Critical Care Time Critical Care Time: Yes <Jacqui Bui APRN - Last Filed: 10/24/24 02:03> Total Critical Care Time: 55 <Jacqui Bui APRN - Last Filed: 10/24/24 02:03> Discharge Plan Discharge Clinical Impression: Pyelonephritis, Hyperglycemia, Effusion of left knee joint Sepsis Qualifiers: Sepsis type: sepsis due to unspecified organism Sepsis acute organ dysfunction status: unspecified Qualified Code(s): A41.9 - Sepsis, unspecified organism Urinary tract infection Qualifiers: Urinary tract infection type: site unspecified Hematuria presence: without hematuria Qualified Code(s): N39.0 - Urinary tract infection, site not specified <Jacqui Bui APRN - Last Filed: 10/24/24 02:03> Patient Disposition: Still a Patient <Jacqui Bui APRN - Last Filed: 10/24/24 02:03> Condition: Stable <Jacqui Bui APRN - Last Filed: 10/24/24 02:03>
--- NOTE | 2024-10-23 18:43 | ECG_ITS ---
Test Date: 2024-10-23 18:52:51 Measurements Intervals [place] Rate: 121 P: 56 VA: 145 QRS: -1 QRSD: 82 T: 55 QT: 321 QTc: 456 Interpretive Statements SINUS TACHYCARDIA POSSIBLE INFERIOR MYOCARDIAL INFARCTION , PROBABLY OLD [30 ms Q WAVE IN II/aVF] ABNORMAL ECG No previous ECG available for comparison Electronically Signed On 10-24-2024 07:37:38 CDT by Yefri Chinchilla M.D.
[2024-10-23 19:03] LABS: Hematocrit 35.8 % (37.0-47.0); Hemoglobin 11.0 g/dL (12.0-15.0); Immature Granulocyte Percent A 3.7 % (0-0.5); Lymphocytes Absolute Auto 2.35 K/mm3 (0.9-3.2); Mean Corpuscular HGB Conc 30.7 g/dl (32-36); Mean Corpuscular Hemoglobin 22.3 pg (26-34); Mean Corpuscular Volume 72.5 fl (80-100); Nucleated Red Blood Cells Absolute Auto 0.000 K/mm3 (0.0-0.012); Nucleated Red Blood Cells Perc 0.0 % (0.0-0.2); Platelet Count Result 359 k/mm3 (150-375); Red Blood Count 4.94 M/mm3 (4.2-5.4); White Blood Count 8.9 K/mm3 (4.5-10.0)
[2024-10-23 19:11] LABS: BEDSIDEPREGUCG Negative (Negative)
[2024-10-23 19:18] LABS: Hemoglobin A1C 12.1 % (<5.7)
[2024-10-23 19:23] LABS: INR 1.3; Partial Thromboplastin Time 25.4 Seconds (22.3-36.8); Prothrombin Time 15.7 Seconds (11.1-14.7)
[2024-10-23 19:26] LABS: Anisocytosis 1+; Schistocytes None Seen
--- OUTSIDE RECORDS SUMMARY | 2024-10-23 19:34 | XMS_ITS | Clinical Summary ---
Author Organization [facility] Care Team Providers Care Manager Database Name Role Phone Unavailable Primary Care Provider [...]
--- OUTSIDE RECORDS SUMMARY | 2024-10-23 19:34 | XMS_ITS | Encounter Summary ---
Author Organization [facility] Address [facility] [place] [address] Care Team Providers Care Delivery Driver Assistant Name Role Phone Azucena Cartwright RN Unavailable Unavailable Leatha Gomez APNP Primary Care Provider [phone] Maureen Bahena NP Primary Care Provider [phone] Encounter Details Date Type Department Care Team (Late st Contact Info) Description 12/20/2019 Hospital Follow-up Call [facility] Telemetry Unit [facility] [address] [facility] [place] [address] Delmi Brunner RN Social History Tobacco Use [...] COVID-19? No / Unsure 12/19/2019 8:11 AM PERMIT COORDINATOR documented as of this encounter Functional Status * RETIRED Are you deaf or do you have serious difficulty hearing Answer Date of Assessment Author Status No 12/12/2019 12:03 PM PERMIT COORDINATOR Acti ve * RETIRED Are you blind or do you have serious difficulty seeing, even when wearing glasses? Answer Date of Assessment Author Status No 12/12/2019 12:03 PM PERMIT COORDINATOR Acti ve * Do you have serious [...] on filedocumented in this encounter Care Teams Delivery Driver Assistant Relationship Specialty Start Date End Date Leatha Gomez APNP [address] [place] [id number] PCP - General NURSE PRACTITIONER 03/19/20 03/02/23 Maureen Bahena NP [address] [place] [id number] PCP - General NURSE PRACTITIONER ADULT HEALTH 03/03/23 Azucena Cartwright, access tech (Ambulatory) REGISTERED NURSE 12/14/19 documented as of this encounter
--- OUTSIDE RECORDS SUMMARY | 2024-10-23 19:34 | XMS_ITS | Clinical Summary ---
Author Organization [facility] Address [address] [place] [address] Care Team Providers Care Heel Seat Sander Name Role Phone Azucena Cartwright RN Unavailable Unavailable Maureen Bahena NP Primary Care Provider [phone] Allergies Active Allergy Reactions Criticality Noted Date [...] complication, with long-term current use of insulin ([facility] HHS/HCC) Take one half tablet once daily. [...] complication, with long-term current use of insulin ([facility] HHS/HCC) 1 each by Does not apply route 2 (two) times a day. 100 each 3 2 Active Blood Glucose Monitoring Suppl (ONE TOUCH ULTRA 2) w/Device KitIndications:Typ e 2 diabetes mellitus without complication, with long-term current use of insulin ([facility] HHS/[facility]) TEST THREE TIMES DAILY BEFORE MEALS 1 kit 2 Active Glucose Blood test stripIndications:T ype 2 diabetes mellitus without complication, with long-term current use of insulin ([facility] HHS/[facility]) 1 strip by Other route 2 (two) times a day. 200 strip 3 2 Active glucagon (GLUCAGON EMERGENCY) 1 MG injectionIndicatio ns:Type 2 diabetes mellitus without complication, with long-term current use of insulin ([facility] HHS/[facility]) As needed 1 kit 1 2 Active semaglutide (OZEMPIC 0.25/0.5 MG/DOSE) 2 MG/1.5ML injection (PEN)Indications:T ype 2 diabetes mellitus without complication, with long-term current use of insulin ([facility]) Inject 0.5 mg into the skin every 7 days. Start at 0.25 weekly for 2 weeks and then proceed to 0.5 weekly 2 pen 3 2 Active NOVOLOG FLEXPEN 100 UNIT/ML injection (PEN)Indications:T ype 2 diabetes mellitus without complication, with long-term current use of insulin ([facility]) ADMINISTER 7 UNITS UNDER THE SKIN THREE [...] wi th long-term current use of insulin ([facility]) 05/16/2018 Tinea pedis of both feet 07/06/2016 History of miscarriage 09/04/2015 Hidradenitis suppurativa 08/30/2012 Resolved Problems Problem Noted Date Diagnosed Date Resolved Date Uncontrolled type 2 diabetes mellitus 03/31/2021 09/24/2021 Severe sepsis ([facility]) 12/11/2019 09/12/2020 Counseling for HPV (human pa pillomavirus) vaccination 04/13/2019 01/12/2021 Diabetes ([facility]) 07/06/2016 0 03/30/2021 Pre-existing type 2 diabetes mellitus during with complication, delivered ([facility]) 07/14/2015 09/21/2018 Immunizations Immunization Administration Dates Next [...] Comments Blood Pressure 178/109 12/30/2023 5:27 PM SCREEN ROLLER Pulse 90 12/30/2023 7:26 PM SCREEN ROLLER Temperature 36.4 C (97.6 F) 12/30/2023 5:27 PM SCREEN ROLLER Respiratory Rate 18 12/30/2023 7:26 PM SCREEN ROLLER Oxygen Saturation 99% 12/30/2023 7:26 PM SCREEN ROLLER Inhaled Oxygen Concentration - - Weight 93 kg (205 lb) 12/30/2023 5:27 PM SCREEN ROLLER Height 162.6 cm (5' 4) 12/30/2023 5:27 PM SCREEN ROLLER Body Mass Index 35.19 12/30/2023 5:27 PM SCREEN ROLLER Plan of Treatment Health Maintenance Due Date [...] Every 5 Years 05/17/2023 05/16/2018 PHQ-2 (Physician [place]) 02/08/2024 Cervical Cancer Screening Pap Smear (Age [...] insulin LIPID PANEL Routine 03/19/2020 2:19 PM SCREEN ROLLER Type 2 diabetes mellitus without complication, with long-term current use of insulin BMI 33.0-33.9,adult from Last 3 Months or Most Recently Relevant to Health Maintenance Results * HEMOGLOBIN, GLYCOSYLATED (07/09/2021 2:30 PM CDT) HGB A1C 12.1 % [facility] 07/09/2021 2:30 PM CDT Raymond Huffman MD LABORATORY Final Result [facility] [address] [place] [address], [place] [phone] * (ABNORMAL) LIPID PANEL (03/19/2020 2:19 PM SCREEN ROLLER) CHOLESTEROL 179 <200 mg/dL [facility] [...] LDL-C. Chidi CERVANTES et al. DOC. 2013;310(19): 4508-1711 (http://education.Waveborn.Sysorex/faq/FOJ820) CHOL/HDL RATIO 4.0 <5.0 (calc) [facility] NON HDL CHOLESTEROL 134(H) <130 mg/dL (calc) [facility] Comment: For patients with diabetes plus 1 major ASCVD risk factor, treating to a non-HDL-C goal of <100 mg/dL (LDL-C of <70 mg/dL) is considered a therapeutic option. 03/19/2020 2:19 PM SCREEN ROLLER 03/19/2020 10:38 PM SCREEN ROLLER us Leatha WILKERSON LABORAT[facility] Final Resul t [facility] [id number] [phone] from Last 3 Months or Most Recently Relevant to Health Maintenance Advance Directives * Full Code (Latest Code Status on File) Date Activated Date Inactivated Comments 12/25/2019 7:21 AM 03/03/2023 3:58 PM * Full Code Date Activated Date Inactivated Comments 12/11/2019 10:44 PM 12/15/2019 1:15 AM Care Teams Heel Seat Sander Relationship Specialty Start Date End Date Maureen Bahena NP [address] [place] [address] PCP - General NURSE PRACTITIONER ADULT HEALTH 03/03/23 Azucena Cartwright RN Care Manager (Ambulatory) REGISTERED NURSE 12/14/19
--- OUTSIDE RECORDS SUMMARY | 2024-10-23 19:34 | XMS_ITS | Clinical Summary ---
Author Organization [facility] Address [address] [place] [id number] Care Team Providers Care Oven Builder Name Role Phone Maureen Bahena Ashli BIN TRIPPER OPERATOR Primary Care Provider [phone] Allergies No known active allergies Medications atorvastatin [...] on file Legal Sex Female 10:24 AM CHECK CLERK Gender Identity Female 04/01/2021 5:04 PM CHECK CLERK Sexual Orientation Not on file Obstetrics History [...] to request sample to be sent to [facility] for Hepatitis C Virus (HCV) RNA Detection and Quantitation by Real-Time Reverse Stonework Supervisor-PCR (RT-PCR). Current interpretive data was last revised on 2011 us Christine Garibay MD LAB BLOOD ORDERABLES Final Resu lt HISTORICAL RESULTS from Last 3 Months or Most Recently Relevant to Health Maintenance Insurance [facility] Address: [address] [address] [place] [address] MEDICARE MEDICARE Care Teams Oven Builder Relationship Specialty Start Date End Date Maureen Bahena NP [address] [place] [address] PCP - General Nurse Practitioner 03/25/23
[2024-10-23 19:35] LABS: Influenza A QL RT-PCR Negative (Negative); Influenza B QL RT-PCR Negative (Negative); RSV RNA, RT-PCR Negative (Negative); SARS-CoV-2 RNA PCR Negative (Negative)
[2024-10-23 19:40] LABS: Add Urine Microscopic? YES; Appearance Urine Cloudy (Clear); Glucose Urine UA 3+ mg/dL (Negative); Leukocyte Esterase Ur 1+ LEU/UL (Negative); Need Manual Microscopic Reviewed; Nitrate Urine Positive (Negative); Specific Grav Ur 1.034 (1.001-1.035)
[2024-10-23] MEDS: SODIUM CHLORIDE 0.9% IV 1,000 ML 999 ML IV CONT ×3 (19:51→21:39)
[2024-10-23 19:54] LABS: Alanine Aminotransferase 22 U/L (6-35); Albumin Level 3.7 g/dL (3.5-5.1); Alkaline Phosphatase 119 U/L (38-126); Anion Gap 11 mmol/L (4-12); Aspartate Amino Transferase 33 U/L (14-36); Bilirubin,Total 0.3 mg/dL (0.2-1.3); Blood Urea Nitrogen 7 mg/dL (7-17); Calcium 9.0 mg/dL (8.4-10.2); Carbon Dioxide 23 mmol/L (22-30); Chloride 98 mmol/L (98-107); Estimated CRCL calculation 129 ml/min; Estimated Glomerular Filt Rate > 60; Glucose 437 mg/dL (65-110); Lipase 39 U/L (23-300); Potassium 4.3 mmol/L (3.4-5.0); Sodium 132 mmol/L (137-145); Total Protein 8.0 g/dL (6.3-8.2); Troponin I < 0.012 ng/mL (0.000-0.034)
[2024-10-23 20:32] LABS: CRP 5.3 mg/dL (<1.0)
[2024-10-23 20:33] LABS: Beta-Hydroxybutyrate/Acetoace. 0.12 mmol/L (0.02-0.27)
[2024-10-23] MEDS: cefTRIAXone 1 GM in SODIUM CHLORIDE 0.9% IV 50 ML 100 ML IVPB (20:55)
[2024-10-23] MEDS: SODIUM CHLORIDE 0.9% IV 800 ML 999 ML IV CONT (21:39)
[2024-10-24] VITALS (16 sets, daily range): BP systolic 149–196; BP diastolic 84–111; PULSE 97–113; RESP 16–20; TEMP 35.9–36.6; O2SAT 99–100; BMI 33.3
[2024-10-24] MEDS: ACETAMINOPHEN 500 MG TABLET 1000 MG PO (01:15)
--- NOTE | 2024-10-24 02:14 | ADMGEN ---
This patient, Cande Davies, was admitted to [facility] Surg Room 327-01. Patient/family oriented to hospital policies and general routines including ID bracelet, bed and alarms, visiting hours, pain management, procedures, bathroom and other care routines, personal items, smoking policy, room service/diet, and visiting hours. Information on how to activate the Rapid Response Team has been discussed. Patient/Family are encouraged to report perceived risks to care and to ask questions if they do not understand what they are told or what they should do.
--- NOTE | 2024-10-24 04:12 | PM.IMHP ---
H&P: HPI History of Present Illness Date/Time: 10/24/24 04:12 Chief Complaint: Feeling ill Narrative: This is a 39-year-old female patient who has a history of uncontrolled diabetes, hydradenitis suppurativa, and urinary tract infections. She presented to the emergency room with complaint of right lower quadrant abdominal pain, left knee pain, fevers, shortness of breath, slight chest pain, wheezing, and back pain. Although these symptoms have been going on for 2 weeks they appear to have gotten worse over the last couple days. Her H&H is slightly low at 11.0 in 35.8. Her D-dimer was elevated to 0.64. Sodium was slightly low 132. Her blood sugars were 437, 377 and then 223. Lactic acid was initially 3.9 and then came down to 2.4 with IV fluids. C reactive protein 5.3. Her urine was cloudy with 2+ blood, 3+ glucose, positive nitrate, 1+ leukocyte esterase, the urine wbc's greater than 100, and urine bacteria 4+. She was given normal saline bolus, Rocephin, hydralazine and Tylenol in the emergency room. As per ED provider patient CT scan indicates subcutaneous fat stranding involving the left inguinal region with presumed reactive left inguinal lymph nodes. Subtle focal areas striated hypoattenuation of the lateral aspect of the right kidney is most consistent with subtle pyelonephritis. No perinephric space abscess, no hydronephrosis or ureteral stone. The patient being admitted to observation status to 3rd medical floor on the date of service of 10/24/2024. Review of Systems Constitutional: Constitutional: Reports as per HPI and Reports no additional constitutional complaints Eyes: Eyes: Reports as per HPI and Reports no additional eye complaints ENT: Reports no additional ear, nose, mouth, and throat complaints and Reports Normal hearing present Cardiovascular: Cardiovascular: Reports no additional cardiovascular complaints Respiratory: Respiratory: Reports as per HPI and Reports no additional respiratory complaints Gastrointestinal: Gastrointestinal: Reports as per HPI and Reports no additional gastrointestinal complaints Genitourinary: Genitourinary: Reports no additional female genitourinary complaints Comments: See HPI Musculoskeletal: Musculoskeletal: Reports no additional musculoskeletal complaints Integumentary/Breasts: Skin/Breast: Reports system reviewed and no additional complaints, except as docu Neurologic: Reports no additional neurologic complaints and Reports Normal hearing present Psychiatric: Psychiatric: Reports no additional psychiatric complaints and Reports as per HPI Hematologic/Lymphatic: Hematologic/Lymphatic: Reports no additional hematologic/lymphatic complaints Allergic/Immunologic: Allergic/Immunologic: Reports no additional allergic/immunologic complaints [facility] Past Medical History Medical History Obstructive sleep apnea Untreated Iron deficiency anemia History of blood transfusion Hidradenitis suppurativa Insulin dependent type 2 diabetes mellitus Surgical History Surgical History History of section Family History Family History Sibling Family history of type 2 diabetes mellitus Father Family history of type 2 diabetes mellitus Mother Hypertension Social History Social History (Updated 10/24/24 @ 04:23 by Sabina Cline APRN) Social History: Surrogate medical decision maker: Sue Palma, mother. Along with her . She has 1 child. She works for [employer]. Code status: Full code. Smoking status: Never smoker Second hand tobacco smoke exposure: Yes (at work) Alcohol intake: never Substance use: never Lack of Transportation: No Lack of Food: Never True Current Housing: I Have Housing Concerned About Future Housing: No Difficulty Paying Gas/Electric Bills: No Difficulty Paying for Meds: YES Currently Unemployed: No Education: High School Diploma/GED Difficulty w/ Childcare or Family Care: No Spiritual care concerns: No Meds Home Medications and Allergies Home Medications ?Medication ?Instructions ?Recorded ?Confirmed ?Type glucagon HCl 1 mg solution for 1 mg subcut Q20M PRN Hypoglycemia 01/10/20 10/24/24 History injection (Glucagon (HCl) Emergency Kit) glipizide 10 mg tablet 10 mg PO DAILY 11/23/22 10/24/24 History insulin NPH-regular 70-30 U-100 45 unit subcut BID 11/23/22 10/24/24 History insulin 100 unit/mL subcutaneous pen (Novolin 70-30 FlexPen U-100 Insulin) loratadine 10 mg tablet 10 mg PO QAM #30 tabs 11/24/22 10/24/24 Rx Allergies Allergy/AdvReac Type Severity Reaction Status Date / Time metformin AdvReac Intermediate Vomiting Verified 10/23/24 20:56 Vital Signs Vital Signs - 24 hr 10/23/24 19:36 10/23/24 19:37 10/23/24 19:41 Temperature 97.8 F Pulse Rate 118 H 118 H 118 H Respiratory Rate 18 17 Blood Pressure 123/74 123/74 Pulse Oximetry 98 99 Oxygen Delivery Room Air 10/23/24 20:15 10/23/24 20:17 10/23/24 20:31 Temperature Pulse Rate Respiratory Rate Blood Pressure 143/94 H 154/98 H Pulse Oximetry 99 99 100 Oxygen Delivery 10/23/24 20:32 10/23/24 20:45 10/23/24 20:46 Temperature Pulse Rate Respiratory Rate Blood Pressure 150/100 H Pulse Oximetry 100 100 100 Oxygen Delivery 10/23/24 21:10 10/23/24 21:15 10/24/24 01:01 Temperature Pulse Rate 108 H 114 H Respiratory Rate 17 21 H Blood Pressure 154/97 H Pulse Oximetry 100 100 100 Oxygen Delivery 10/24/24 01:15 10/24/24 01:16 10/24/24 01:30 Temperature Pulse Rate Respiratory Rate Blood Pressure 177/111 H 173/110 H Pulse Oximetry 99 100 100 Oxygen Delivery 10/24/24 01:31 10/24/24 01:50 Temperature Pulse Rate 103 H Respiratory Rate 18 Blood Pressure 158/90 H Pulse Oximetry 100 100 Oxygen Delivery Exam Const: General: cooperative, comfortable, no acute distress, well developed, awake, Physically active, average body habitus and well nourished Orientation/consciousness: oriented to person, oriented to place, oriented to time and patient oriented x3 Limitations: no limitations HENMT: Head: normal to inspection, No palpable skull fracture present and normocephalic Ears: hearing grossly normal bilaterally and external ears normal Eyes: General: appearance normal, both eyes and all related structures Alignment and Position: alignment normal Periorbital: periorbital findings normal Eyelids: eyelids normal Neck: Neck: normal visual inspection and full ROM Chest: Chest palpation & inspection: normal inspection of the chest Resp: Effort & Inspection: normal respiratory effort Auscultation: clear to auscultation bilaterally Cardio: Palpation: normal PMI Rate: regular rate Rhythm: regular rhythm Heart sounds: S1 normal heart sound present and S2 normal heart sound present Peripheral pulses: Peripheral pulses 2+ throughout GI: Inspection: normal to inspection Percussion: Yes normal to percussion Auscultation: normal bowel sounds : General: Yes no CVA tenderness Back/Spine/Pelvis: Back: no CVA tenderness Cervical Spine: cervical ROM normal Skin: General skin exam: normal color Lesions: no lesions Rashes: no rashes Wounds: fistulous tract left groin Other: Serous sanguinous drainage from a left growing. Neuro: General: oriented to person, oriented to place, oriented to time and patient oriented x3 Cranial nerves: Yes Equal, round and reactive pupils present and Yes Normal hearing present Cognition (Neuro): normal cognition Speech: normal speech Motor exam (neuro): 5/5 motor strength present throughout Sensory Exam: normal sensation Extrem: General: normal to inspection Right upper extremity: normal to inspection and shoulder/upper arm Left upper extremity: normal to inspection and shoulder/upper arm Right lower extremity: normal to inspection Left lower extremity: normal to inspection Psych: Appearance: grossly normal Mental Status: mental status grossly normal Speech and movement: Normal speech and movement present Affect: normal affect Attitude: cooperative Thought process: Normal thought process present Thought content: Yes Normal thought content present Insight: Good insight present (Psych) Judgement: Good judgement present (Psych) H&P: Results Labs Labs: Short CBC 10/23/24 Range/Units 18:53 WBC 8.9 (4.5-10.0) K/mm3 Hgb 11.0 L (12.0-15.0) g/dL Hct 35.8 L (37.0-47.0) % Plt Count 359 D (150-375) k/mm3 BMP 10/23/24 18:53 Sodium 132 L Potassium 4.3 Chloride 98 Carbon Dioxide 23 BUN 7 Creatinine 0.54 L Glucose 437 H Calcium 9.0 Cardiac Enzymes 10/23/24 Range/Units 18:53 Troponin I < 0.012 (0.000-0.034) ng/mL Liver Function 10/23/24 Range/Units 18:53 Total Bilirubin 0.3 (0.2-1.3) mg/dL AST 33 (14-36) U/L ALT 22 (6-35) U/L Alkaline Phosphatase 119 (38-126) U/L Albumin 3.7 (3.5-5.1) g/dL Urine 10/23/24 Range/Units 19:07 Urine Color Yellow (Yellow) Urine Appearance Cloudy H (Clear) Urine pH 5.5 (5.0-9.0) Ur Specific [place] 1.034 (1.001-1.035) Urine Protein Negative (Negative) mg/dL Urine Glucose (UA) 3+ H (Negative) mg/dL Imaging CT scan - abdomen: Radiologist's impression: Impressions Chest X-Ray 10/23/24 20:17 IMPRESSION: 1. No acute cardiopulmonary findings. Assessment and Plan Assessment and plan (1) Cellulitis of left groin: Code(s): L03.314 - Cellulitis of groin Status: Acute Assessment and Plan: -the patient has a history of hydradenitis suppurativa. She has had multiple I&Ds under her arms. -cefepime and vancomycin have been initiated. She had gotten a dose of Rocephin in the emergency room. -surgery consultation would be greatly be appreciated for possible tunneling of the left groin abscess. The abscess is draining on its own at this time. -soft tissue ultrasound was ordered for left groin to determine any tunneling and size of abscess. -blood and wound cultures are pending. (2) Pyelonephritis: Code(s): N12 - Tubulo-interstitial nephritis, not specified as acute or chronic Status: Acute Assessment and Plan: -the patient is currently on cefepime and vancomycin. -blood and urine cultures are pending. -recheck her lactic today. Her lactic had been elevated in the emergency room. -she has no discomfort at this time. (3) Elevated blood pressure reading without diagnosis of hypertension: Code(s): R03.0 - Elevated blood-pressure reading, without diagnosis of hypertension Status: Acute Assessment and Plan: -P.r.n. hydralazine with parameters and continue to monitor renal function. (4) Type 2 diabetes mellitus with hyperglycemia: Code(s): E11.65 - Type 2 diabetes mellitus with hyperglycemia Status: Acute Assessment and Plan: -Accu-Cheks AC and HS with high-dose sliding scale. -continue glipizide -A1c is 12.1. She will need to see assistant health educator and possibly a dietitian. She may also need to follow with Endocrinology outpatient. (5) Effusion of left knee joint: Code(s): M25.462 - Effusion, left knee Status: Acute Assessment and Plan: -she mainly uses an Alexis wrap Plan Quality VTE Prophylaxis VTE prophylaxis: mechanical ordered
[2024-10-24] MEDS: CEFEPIME 2 GM in SODIUM CHLORIDE 0.9% IV 50 ML 100 ML IVPB (04:53)
[2024-10-24] MEDS: SODIUM CHLORIDE 0.9% IV 1,000 ML 100 ML IV CONT ×2 (05:49→20:56)
[2024-10-24 06:17] LABS: Hematocrit 33.1 % (37.0-47.0); Hemoglobin 10.0 g/dL (12.0-15.0); Immature Granulocyte Percent A 2.2 % (0-0.5); Lymphocytes Absolute Auto 2.83 K/mm3 (0.9-3.2); Mean Corpuscular HGB Conc 30.2 g/dl (32-36); Mean Corpuscular Hemoglobin 22.2 pg (26-34); Mean Corpuscular Volume 73.6 fl (80-100); Nucleated Red Blood Cells Absolute Auto 0.000 K/mm3 (0.0-0.012); Nucleated Red Blood Cells Perc 0.0 % (0.0-0.2); Platelet Count Result 340 k/mm3 (150-375); Red Blood Count 4.50 M/mm3 (4.2-5.4); White Blood Count 7.8 K/mm3 (4.5-10.0)
[2024-10-24 06:42] LABS: Anion Gap 7 mmol/L (4-12); Blood Urea Nitrogen 5 mg/dL (7-17); Calcium 8.3 mg/dL (8.4-10.2); Carbon Dioxide 22 mmol/L (22-30); Chloride 105 mmol/L (98-107); Estimated CRCL calculation 150 ml/min; Estimated Glomerular Filt Rate > 60; Glucose 214 mg/dL (65-110); Potassium 3.8 mmol/L (3.4-5.0); Sodium 134 mmol/L (137-145)
[2024-10-24] MEDS: VANCOMYCIN 1,250 MG/NS 250 ML 1,250 MG/250 ML BAG 166.67 MG IVPB (07:08)
--- NOTE | 2024-10-24 07:09 | PC.NURSE ---
0600 Vancomycin administered at 0709 due to first (0600) bag leaking and fiction and nonfiction writer prose requested new bag form pharmacy
[2024-10-24 07:16] LABS: Anisocytosis 1+; Schistocytes None Seen
[2024-10-24 07:17] LABS: Microcytosis 1+ (NORMAL)
[2024-10-24] MEDS: INSULIN ASPART (*BKC) 100 UNITS/ML SUB-Q (08:48)
[2024-10-24] MEDS: VANCOMYCIN HCL 1,000 MG in SODIUM CHLORIDE 0.9% IV 250 ML 250 MG IVPB (08:58)
[2024-10-24] MEDS: ACETAMINOPHEN 325 MG TABLET 650 MG PO ×2 (09:00→23:30)
[2024-10-24] MEDS: LORATADINE 10 MG TABLET PO (09:00)
--- NOTE | 2024-10-24 10:02 | PM.CNGS ---
Assessment and Plan Assessment and plan (1) Hidradenitis suppurativa: Code(s): L73.2 - Hidradenitis suppurativa Status: Chronic Assessment and Plan: Patient has a history of hidradenitis suppurativa with previous bilateral axillary excisions in 2015. She appears to have moderate to severe disease in the left groin and mild disease in the right groin. This is likely aggravated by her uncontrolled diabetes. There is one larger area in the left groin that is actively draining and tender, but no obvious abscess that would require I&D. We would recommend starting clindamycin and rifampin for antibiotic therapy, as well as local wound care with gauze dressing changes as needed. We discussed the importance of improving her glycemic control and the need for monitoring once she is discharged. I would anticipate her to continue having issues with her hidradenitis until her diabetes is better controlled. No indication for urgent surgical intervention at this time. Will continue to follow along. (2) Pyelonephritis: Code(s): N12 - Tubulo-interstitial nephritis, not specified as acute or chronic Status: Acute Assessment and Plan: Urine culture pending. Continue IV antibiotics per Hospitalist. (3) Type 2 diabetes mellitus with hyperglycemia: Code(s): E11.65 - Type 2 diabetes mellitus with hyperglycemia Status: Acute Assessment and Plan: Glucose was 437 on admission and now down to low 200's. Hgb A1C was 12.1 on admission. Discussed the importance of controlling her diabetes in regards to her HS disease. Management per Hospitalist. Plan I have discussed the patient's case and plan of care with Dr. Kohler. History of Present Illness Consult details Consult date: 10/24/24 Reason for consult: other (Tunneling in the left inguinal area) Requesting physician: Sabina Cline, SALLY Narrative: This is a 39-year-old woman with uncontrolled insulin-dependent type 2 diabetes mellitus, hidradenitis suppurativa, and recurrent UTIs. We have been asked to see her in surgical consultation for tunneling in the left inguinal area. She reports having left lower quadrant pain and generalized malaise over the past week. She reportedly has been eating and taking her diabetic medications as prescribed. She does not have any way of checking her sugars at home. Over the past week she also developed generalized weakness and noticed mild diffuse chest pain and shortness of breath with activity. Denies nausea, vomiting, fevers, chills, diarrhea, dysuria, hematuria, urinary frequency, cough, congestion, or any other complaints. She felt it had become worse over the past few days and decided come in for evaluation yesterday. In the ED, she was afebrile and tachycardic with a high blood pressure. Labs showed a normal white blood cell count, lactic acid 3.9 that normalized after IV fluids. Her glucose was initially in the 400s and her hemoglobin A1c is 12.1. UA suggests UTI. Urine culture pending. CT scan of the abdomen and pelvis showed findings of cystitis, and mild bilateral pyelonephritis, as well as subcutaneous fat stranding involving the left inguinal region with presumed reactive left inguinal lymph nodes. No abscess noted on CT. She was admitted to the hospitalist service and is currently on IV cefepime and vancomycin. Review of Systems Review of Systems: All systems reviewed & are unremarkable except as noted in HPI and below PMFSH Past Medical History Medical History Obstructive sleep apnea Untreated Iron deficiency anemia History of blood transfusion Hidradenitis suppurativa Insulin dependent type 2 diabetes mellitus Surgical History Surgical History History of excision of lesion Excision of bilateral [place]illary hidradenitis [place] [address] Philippe History of section Family History Family History Sibling Family history of type 2 diabetes mellitus Father Family history of type 2 diabetes mellitus Mother Hypertension Social History Social History Social History: Surrogate medical decision maker: Sue Palma, mother. Along with her . She has 1 child. 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 Code status: Full code. Smoking status: Never smoker Second hand tobacco smoke exposure: Yes (at work) Alcohol intake: never Substance use: never Lack of Transportation: No Lack of Food: Never True Current Housing: I Have Housing Concerned About Future Housing: No Difficulty Paying Gas/Electric Bills: No Difficulty Paying for Meds: YES Currently Unemployed: No Education: High School Diploma/GED Difficulty w/ Childcare or Family Care: No Spiritual care concerns: No Meds Home Medications and Allergies Home Medications ?Medication ?Instructions ?Recorded ?Confirmed ?Type glucagon HCl 1 mg solution for 1 mg subcut Q20M PRN Hypoglycemia 01/10/20 10/24/24 History injection (Glucagon (HCl) Emergency Kit) glipizide 10 mg tablet 10 mg PO DAILY 11/23/22 10/24/24 History insulin NPH-regular 70-30 U-100 45 unit subcut BID 11/23/22 10/24/24 History insulin 100 unit/mL subcutaneous pen (Novolin 70-30 FlexPen U-100 Insulin) loratadine 10 mg tablet 10 mg PO QAM #30 tabs 11/24/22 10/24/24 Rx Allergies Allergy/AdvReac Type Severity Reaction Status Date / Time metformin AdvReac Intermediate Vomiting Verified 10/23/24 20:56 Vital Signs Vital Signs - 24 hr 10/23/24 19:36 10/23/24 19:37 10/23/24 19:41 Temperature 97.8 F Pulse Rate 118 H 118 H 118 H Respiratory Rate 18 17 Blood Pressure 123/74 123/74 Pulse Oximetry 98 99 Oxygen Delivery Room Air 10/23/24 20:15 10/23/24 20:17 10/23/24 20:31 Temperature Pulse Rate Respiratory Rate Blood Pressure 143/94 H 154/98 H Pulse Oximetry 99 99 100 Oxygen Delivery 10/23/24 20:32 10/23/24 20:45 10/23/24 20:46 Temperature Pulse Rate Respiratory Rate Blood Pressure 150/100 H Pulse Oximetry 100 100 100 Oxygen Delivery 10/23/24 21:10 10/23/24 21:15 10/24/24 01:01 Temperature Pulse Rate 108 H 114 H Respiratory Rate 17 21 H Blood Pressure 154/97 H Pulse Oximetry 100 100 100 Oxygen Delivery 10/24/24 01:15 10/24/24 01:16 10/24/24 01:30 Temperature Pulse Rate Respiratory Rate Blood Pressure 177/111 H 173/110 H Pulse Oximetry 99 100 100 Oxygen Delivery 10/24/24 01:31 10/24/24 01:50 10/24/24 06:02 Temperature 97.9 F Pulse Rate 103 H 97 Respiratory Rate 18 18 Blood Pressure 158/90 H 149/93 H Pulse Oximetry 100 100 99 Oxygen Delivery 10/24/24 06:06 Temperature Pulse Rate 101 H Respiratory Rate Blood Pressure Pulse Oximetry Oxygen Delivery Exam Const: General: comfortable and no acute distress Nutritional Appearance: average body habitus Orientation/consciousness: patient oriented x3 HENMT: Head: normocephalic and atraumatic Ears: hearing grossly normal bilaterally Mouth: Yes moist mucous membranes Eyes: General: appearance normal, both eyes and all related structures Pupils: Equal, round and reactive pupils present Neck: Neck: normal visual inspection and full ROM Resp: Effort & Inspection: no respiratory distress Auscultation: clear to auscultation bilaterally Cardio: Rate: regular rate Rhythm: regular rhythm Peripheral pulses: Peripheral pulses 2+ throughout GI: Inspection: non-distended and obesity (Large protuberant abdomen) GI Palp: Yes Soft to palpation, No Tenderness to palpation present (GI), No Guarding due to palpation present (GI), Yes No hepatosplenomegaly present and No Rebound tenderness present Auscultation: normal bowel sounds Rectal Exam: deferred Skin: General skin exam: normal color Other: Multiple pitting and few nodules noted to bilateral groin with appearance consistent with hidradenitis suppurativa, L worse than R. Small 2 cm area with purulent drainage to the right groin. Left lateral groin in the skin fold beneath the pannus there is a 0.5 cm opening with no tracking and a depth of 1 cm that is actively draining with about 6 cm of erythema and induration extending medially. This area is tender. There are two separate areas that are much smaller (1-2 cm) draining scant purulent drainage more inferior in the left groin that are nontender. Bilateral axillary scars from previous excisions. Neuro: General: moves all extremities and no focal motor deficits Speech: normal speech Motor exam (neuro): 5/5 motor strength present throughout Extrem: General: normal to inspection and no edema Psych: Mental Status: mental status grossly normal Attitude: cooperative Insight: Good insight present (Psych) Judgement: Good judgement present (Psych) Results Labs 10/24/24 05:56 10/24/24 05:56 Labs: Abnormal lab results 10/23/24 10/23/24 10/23/24 Range/Units 18:53 19:07 19:55 Hgb 11.0 L (12.0-15.0) g/dL Hct 35.8 L (37.0-47.0) % MCV 72.5 L (80-100) fl MCH 22.3 L (26-34) pg MCHC 30.7 L (32-36) g/dl RDW 16.0 H (11.5-14.5) % Immature Gran % (Auto) 3.7 H (0-0.5) % Abs Immat Gran (auto) 0.33 H (0.00-0.031) K/mm3 PT 15.7 H (11.1-14.7) Seconds D-Dimer 0.64 H (<0.48) ug/mL Sodium 132 L (137-145) mmol/L BUN (7-17) mg/dL Creatinine 0.54 L (0.7-1.0) mg/dL Glucose 437 H (65-110) mg/dL POC Capillary Glucose 377 H (65-105) mg/dl Hemoglobin A1c 12.1 H (<5.7) % Lactic Acid 3.9 H (0.7-2.0) mmol/L Calcium (8.4-10.2) mg/dL C-Reactive Protein 5.3 H (<1.0) mg/dL Urine Appearance Cloudy H (Clear) Urine Glucose (UA) 3+ H (Negative) mg/dL Ur Blood (Man) 2+ H (Negative) Urine Nitrate Positive H (Negative) Leukocyte Esterase Rfl 1+ H (Negative) KEISHA/UL Urine WBC >100 H (0-3) /hpf Urine Bacteria 4+ H /hpf 10/23/24 10/24/24 10/24/24 Range/Units 23:01 02:14 05:56 Hgb 10.0 L (12.0-15.0) g/dL Hct 33.1 L (37.0-47.0) % MCV 73.6 L (80-100) fl MCH 22.2 L (26-34) pg MCHC 30.2 L (32-36) g/dl RDW 16.2 H (11.5-14.5) % Immature Gran % (Auto) 2.2 H (0-0.5) % Abs Immat Gran (auto) 0.17 H (0.00-0.031) K/mm3 PT (11.1-14.7) Seconds D-Dimer (<0.48) ug/mL Sodium 134 L (137-145) mmol/L BUN 5 L (7-17) mg/dL Creatinine 0.45 L (0.7-1.0) mg/dL Glucose 214 H (65-110) mg/dL POC Capillary Glucose 223 H (65-105) mg/dl Hemoglobin A1c (<5.7) % Lactic Acid 2.4 H (0.7-2.0) mmol/L Calcium 8.3 L (8.4-10.2) mg/dL C-Reactive Protein (<1.0) mg/dL Urine Appearance (Clear) Urine Glucose (UA) (Negative) mg/dL Ur Blood (Man) (Negative) Urine Nitrate (Negative) Leukocyte Esterase Rfl (Negative) KEISHA/UL Urine WBC (0-3) /hpf Urine Bacteria /hpf 10/24/24 Range/Units 07:37 Hgb (12.0-15.0) g/dL Hct (37.0-47.0) % MCV (80-100) fl MCH (26-34) pg MCHC (32-36) g/dl RDW (11.5-14.5) % Immature Gran % (Auto) (0-0.5) % Abs Immat Gran (auto) (0.00-0.031) K/mm3 PT (11.1-14.7) Seconds D-Dimer (<0.48) ug/mL Sodium (137-145) mmol/L BUN (7-17) mg/dL Creatinine (0.7-1.0) mg/dL Glucose (65-110) mg/dL POC Capillary Glucose 210 H (65-105) mg/dl Hemoglobin A1c (<5.7) % Lactic Acid (0.7-2.0) mmol/L Calcium (8.4-10.2) mg/dL C-Reactive Protein (<1.0) mg/dL Urine Appearance (Clear) Urine Glucose (UA) (Negative) mg/dL Ur Blood (Man) (Negative) Urine Nitrate (Negative) Leukocyte Esterase Rfl (Negative) KEISHA/UL Urine WBC (0-3) /hpf Urine Bacteria /hpf Diabetes panel 10/23/24 10/24/24 Range/Units 18:53 05:56 Sodium 132 L 134 L (137-145) mmol/L Potassium 4.3 3.8 (3.4-5.0) mmol/L Chloride 98 105 (98-107) mmol/L Carbon Dioxide 23 22 (22-30) mmol/L BUN 7 5 L (7-17) mg/dL Creatinine 0.54 L 0.45 L (0.7-1.0) mg/dL Glucose 437 H 214 H (65-110) mg/dL Hemoglobin A1c 12.1 H (<5.7) % Calcium 9.0 8.3 L (8.4-10.2) mg/dL AST 33 (14-36) U/L ALT 22 (6-35) U/L Alkaline Phosphatase 119 (38-126) U/L Total Protein 8.0 (6.3-8.2) g/dL Albumin 3.7 (3.5-5.1) g/dL Calcium panel 10/23/24 10/24/24 Range/Units 18:53 05:56 Calcium 9.0 8.3 L (8.4-10.2) mg/dL Albumin 3.7 (3.5-5.1) g/dL Pituitary panel 10/23/24 10/24/24 Range/Units 18:53 05:56 Sodium 132 L 134 L (137-145) mmol/L Potassium 4.3 3.8 (3.4-5.0) mmol/L Chloride 98 105 (98-107) mmol/L Carbon Dioxide 23 22 (22-30) mmol/L BUN 7 5 L (7-17) mg/dL Creatinine 0.54 L 0.45 L (0.7-1.0) mg/dL Glucose 437 H 214 H (65-110) mg/dL Calcium 9.0 8.3 L (8.4-10.2) mg/dL Adrenal panel 10/23/24 10/24/24 Range/Units 18:53 05:56 Sodium 132 L 134 L (137-145) mmol/L Potassium 4.3 3.8 (3.4-5.0) mmol/L Chloride 98 105 (98-107) mmol/L Carbon Dioxide 23 22 (22-30) mmol/L BUN 7 5 L (7-17) mg/dL Creatinine 0.54 L 0.45 L (0.7-1.0) mg/dL Glucose 437 H 214 H (65-110) mg/dL Calcium 9.0 8.3 L (8.4-10.2) mg/dL Total Bilirubin 0.3 (0.2-1.3) mg/dL AST 33 (14-36) U/L ALT 22 (6-35) U/L Alkaline Phosphatase 119 (38-126) U/L Total Protein 8.0 (6.3-8.2) g/dL Albumin 3.7 (3.5-5.1) g/dL All other labs normal. Imaging Additional studies: ITS Impressions Chest X-Ray 10/23/24 20:17 IMPRESSION: 1. No acute cardiopulmonary findings. Abdomen/Pelvis CT 10/24/24 08:07 IMPRESSION: 1. Cystitis. 2. Mild bilateral pyelonephritis.
--- NOTE | 2024-10-24 10:25 | P.PNIM_ITS ---
Progress Note: A&P Assessment and Plan (1) Cellulitis of left groin: Code(s): L03.314 - Cellulitis of groin Status: Acute Assessment and Plan: -the patient has a history of hydradenitis suppurativa. She has had multiple I&Ds under her arms. -cefepime and vancomycin have been initiated. She had gotten a dose of Rocephin in the emergency room. -surgery consultation would be greatly be appreciated for possible tunneling of the left groin abscess. The abscess is draining on its own at this time. -soft tissue ultrasound was ordered for left groin to determine any tunneling and size of abscess. -blood and wound cultures are pending. -general surgery recommending medical management at this time -AM labs ordered (2) Pyelonephritis: Code(s): N12 - Tubulo-interstitial nephritis, not specified as acute or chronic Status: Acute Assessment and Plan: -the patient is currently on cefepime and vancomycin. -blood and urine cultures are pending. -recheck her lactic today. Her lactic had been elevated in the emergency room. -she has no discomfort at this time. -AM labs (3) Elevated blood pressure reading without diagnosis of hypertension: Code(s): R03.0 - Elevated blood-pressure reading, without diagnosis of hypertension Status: Acute Assessment and Plan: -P.r.n. hydralazine with parameters and continue to monitor renal function. -If BP remains elevated, will add PO medication on (4) Type 2 diabetes mellitus with hyperglycemia: Code(s): E11.65 - Type 2 diabetes mellitus with hyperglycemia Status: Acute Assessment and Plan: -Accu-Cheks AC and HS with high-dose sliding scale. -continue glipizide -A1c is 12.1. She will need to see para educator and possibly a dietitian. She may also need to follow with Endocrinology outpatient. (5) Effusion of left knee joint: Code(s): M25.462 - Effusion, left knee Status: Acute Assessment and Plan: -she mainly uses an Alexis wrap Plan Subjective Date/time seen: 10/24/24 10:25 Interval history: Patient seen lying in her bed, in no acute distress. Patient denies acute pain. Patient continues on IV antibiotics. Culture results pending for urine, blood and wound. General surgery consulted and recommends medical managment for patients HS. Patients blood pressures reviewed and will start PO medication if BP remains elevated. Patient reports she does not have a PCP and has not been taking any of her home medications due to no insurance. CM will provide available resources to patient. Review of Systems Review of Systems: All systems reviewed & are unremarkable except as noted in HPI and below Exam Const: General: cooperative, comfortable, no acute distress, well developed, awake, Physically active and well nourished Nutritional Appearance: well nourished Orientation/consciousness: patient oriented x3 Limitations: no limitations HENMT: Head: normal to inspection and normocephalic Ears: hearing grossly normal bilaterally and external ears normal Eyes: General: appearance normal, both eyes and all related structures Ali gnment and Position: alignment normal Periorbital: periorbital findings normal Eyelids: eyelids normal Pupils: Equal, round and reactive pupils present Neck: Neck: normal visual inspection and full ROM Resp: Effort & Inspection: normal respiratory effort Auscultation: clear to auscultation bilaterally Cardio: Rate: regular rate Rhythm: regular rhythm Heart sounds: S1 normal heart sound present and S2 normal heart sound present GI: Inspection: normal to inspection Auscultation: normal bowel sounds Skin: General skin exam: normal color and fistulous tract Lesions: no lesions Rashes: no rashes Wounds: fistulous tract Other: Serous sanguinous drainage from a left growing. Neuro: General: patient oriented x3 Cranial nerves: Yes Equal, round and reactive pupils present and Yes Normal hearing present Cognition (Neuro): normal cognition Speech: normal speech Motor exam (neuro): 5/5 motor strength present throughout Sensory Exam: normal sensation Psych: Mental Status: mental status grossly normal Objective Data Vital Signs Vital Signs: Vital Signs - 24 hr 10/23/24 19:36 10/23/24 19:37 10/23/24 19:41 Temperature 97.8 F Pulse Rate 118 H 118 H 118 H Respiratory Rate 18 17 Blood Pressure 123/74 123/74 Pulse Oximetry 98 99 Oxygen Delivery Room Air 10/23/24 20:15 10/23/24 20:17 10/23/24 20:31 Temperature Pulse Rate Respiratory Rate Blood Pressure 143/94 H 154/98 H Pulse Oximetry 99 99 100 Oxygen Delivery 10/23/24 20:32 10/23/24 20:45 10/23/24 20:46 Temperature Pulse Rate Respiratory Rate Blood Pressure 150/100 H Pulse Oximetry 100 100 100 Oxygen Delivery 10/23/24 21:10 10/23/24 21:15 10/24/24 01:01 Temperature Pulse Rate 108 H 114 H Respiratory Rate 17 21 H Blood Pressure 154/97 H Pulse Oximetry 100 100 100 Oxygen Delivery 10/24/24 01:15 10/24/24 01:16 10/24/24 01:30 Temperature Pulse Rate Respiratory Rate Blood Pressure 177/111 H 173/110 H Pulse Oximetry 99 100 100 Oxygen Delivery 10/24/24 01:31 10/24/24 01:50 10/24/24 06:02 Temperature 97.9 F Pulse Rate 103 H 97 Respiratory Rate 18 18 Blood Pressure 158/90 H 149/93 H Pulse Oximetry 100 100 99 Oxygen Delivery 10/24/24 06:06 Temperature Pulse Rate 101 H Respiratory Rate Blood Pressure Pulse Oximetry Oxygen Delivery Intake/Output Intake/Output: Intake & Output 10/21/24 10/22/24 10/23/24 10/24/24 23:59 23:59 23:59 23:59 Intake Total 3850 50 Balance 3850 50 Meds/Results Medications: Active Medications Generic Name Dose Route Start Last Admin Trade Name Freq PRN Reason Stop Dose Admin Acetaminophen 650 mg 10/24/24 01:04 10/24/24 09:00 Acetaminophen 325 Mg Tablet PO 650 mg Q4H PRN Administration Mild Pain (1-3) or Fever Clindamycin HCl 300 mg 10/24/24 11:00 Clindamycin Hcl 150 Mg Cap PO Q12HR ANASTACIA Dextrose 12.5 gm 10/24/24 03:55 Dextrose 50% 25 Gm/50 Ml Syringe IV PUSH PRN PRN Hypoglycemia Protocol Glipizide 10 mg 10/24/24 07:30 10/24/24 09:00 Glipizide 5 Mg Tablet PO 10 mg DAILY@0730 ANASTACIA Administration Glucagon 1 mg 10/24/24 03:55 Glucagon For Inj 1 Mg Vial IM PRN PRN Hypoglycemia Protocol Glucose 15 gm 10/24/24 03:55 Glucose Oral Gel 15 Gm Of Glucse In 37.5 Gm Tube PO PRN PRN Hypoglycemia Protocol Hydralazine HCl 10 mg 10/24/24 04:07 Hydralazine Hcl 20 Mg/Ml Vial IV PUSH Q8H PRN Blood Pressure - High Dextrose 1,000 mls @ 100 mls/hr 10/24/24 03:55 Dextrose 5% 1,000 Ml IVPB PRN PRN Hypoglycemia Protocol Sodium Chloride 1,000 mls @ 100 mls/hr 10/24/24 04:45 10/24/24 05:49 Normal Saline Iv IV CONT 100 mls/hr .Q10H ANASTACIA Administration Ceftriaxone Sodium 2 gm/ 100 mls @ 200 mls/hr 10/24/24 17:00 Sodium Chloride IVPB Q24H ANASTACIA Insulin Aspart 3 - 6 units 10/24/24 08:00 10/24/24 08:48 Insulin Aspart (*Bkc) 100 Units/Ml SUB-Q 3 units TIDWM ANASTACIA Administration Protocol Loratadine 10 mg 10/24/24 09:00 10/24/24 09:00 Loratadine 10 Mg Tablet PO 10 mg QAM ANASTACIA Administration Rifampin 300 mg 10/24/24 11:00 Rifampin 300 Mg Capsule PO Q12HR [facility] Radiology Results: ITS Impressions Chest X-Ray 10/23/24 20:17 IMPRESSION: 1. No acute cardiopulmonary findings. Abdomen/Pelvis CT 10/24/24 08:07 IMPRESSION: 1. Cystitis. 2. Mild bilateral pyelonephritis. Labs Labs: Laboratory Results - last 24 hr 10/23/24 10/23/24 10/23/24 18:53 18:54 19:07 WBC 8.9 RBC 4.94 Hgb 11.0 L Hct 35.8 L MCV 72.5 L MCH 22.3 L MCHC 30.7 L RDW 16.0 H Plt Count 359 D MPV 9.2 Immature Gran % (Auto) 3.7 H Neut % (Auto) 62.4 Lymph % (Auto) 26.5 [place] % (Auto) 5.3 Eos % (Auto) 1.5 Baso % (Auto) 0.6 Lymph # (Auto) 2.35 [place] # (Auto) 0.5 Eos # (Auto) 0.1 Baso # (Auto) 0.1 Abs Immat Gran (auto) 0.33 H Absolute Neuts (auto) 5.6 Absolute Nucleated RBC 0.000 Band Neutrophils % Not Reportable Nucleated RBC % 0.0 Platelet Estimate Adequate Anisocytosis 1+ Microcytosis Schistocytes None seen PT 15.7 H INR 1.3 APTT 25.4 D-Dimer 0.64 H Cancelled Sodium 132 L Potassium 4.3 Chloride 98 Carbon Dioxide 23 Anion Gap 11 BUN 7 Creatinine 0.54 L Estim Creat Clear Calc 129 Estimated GFR > 60 Glucose 437 H POC Capillary Glucose Hemoglobin A1c 12.1 H Lactic Acid 3.9 H Calcium 9.0 Total Bilirubin 0.3 AST 33 ALT 22 Alkaline Phosphatase 119 Troponin I < 0.012 C-Reactive Protein 5.3 H Total Protein 8.0 Albumin 3.7 Lipase 39 Beta-Hydroxybutyrate/Acetoacetate 0.12 Urine Color Yellow Urine Appearance Cloudy H Urine pH 5.5 Ur Specific [place] 1.034 Urine Protein Negative Urine Glucose (UA) 3+ H Urine Ketones Negative Ur Blood (Man) 2+ H Urine Nitrate Positive H Urine Bilirubin Negative Urine Urobilinogen 0.2 Add Ur Microanalysis Reviewed Leukocyte Esterase Rfl 1+ H Urine RBC 0-2 Urine WBC >100 H Ur Squamous Epith Cells None seen Urine Bacteria 4+ H Urine Casts 6-10 POC Urine HCG, Qual Influenza A (RT-PCR) Negative Influenza B (RT-PCR) Negative RSV (RT-PCR) Negative SARS-CoV-2 RNA (RT-PCR) Negative 10/23/24 10/23/24 10/23/24 19:09 19:55 23:01 WBC RBC Hgb Hct MCV MCH MCHC RDW Plt Count MPV Immature Gran % (Auto) Neut % (Auto) Lymph % (Auto) [place] % (Auto) Eos % (Auto) Baso % (Auto) Lymph # (Auto) [place] # (Auto) Eos # (Auto) Baso # (Auto) Abs Immat Gran (auto) Absolute Neuts (auto) Absolute Nucleated RBC Band Neutrophils % Nucleated RBC % Platelet Estimate Anisocytosis Microcytosis Schistocytes PT INR APTT D-Dimer Sodium Potassium Chloride Carbon Dioxide Anion Gap BUN Creatinine Estim Creat Clear Calc Estimated GFR Glucose POC Capillary Glucose 377 H Hemoglobin A1c Lactic Acid 2.4 H Calcium Total Bilirubin AST ALT Alkaline Phosphatase Troponin I C-Reactive Protein Total Protein Albumin Lipase Beta-Hydroxybutyrate/Acetoacetate Urine Color Urine Appearance Urine pH Ur Specific [place] Urine Protein Urine Glucose (UA) Urine Ketones Ur Blood (Man) Urine Nitrate Urine Bilirubin Urine Urobilinogen Add Ur Microanalysis Leukocyte Esterase Rfl Urine RBC Urine WBC Ur Squamous Epith Cells Urine Bacteria Urine Casts POC Urine HCG, Qual Negative Influenza A (RT-PCR) Influenza B (RT-PCR) RSV (RT-PCR) SARS-CoV-2 RNA (RT-PCR) 10/24/24 10/24/24 10/24/24 02:14 05:56 07:37 WBC 7.8 RBC 4.50 Hgb 10.0 L Hct 33.1 L MCV 73.6 L MCH 22.2 L MCHC 30.2 L RDW 16.2 H Plt Count 340 MPV 9.2 Immature Gran % (Auto) 2.2 H Neut % (Auto) 53.6 Lymph % (Auto) 36.3 [place] % (Auto) 5.8 Eos % (Auto) 1.5 Baso % (Auto) 0.6 Lymph # (Auto) 2.83 [place] # (Auto) 0.5 Eos # (Auto) 0.1 Baso # (Auto) 0.1 Abs Immat Gran (auto) 0.17 H Absolute Neuts (auto) 4.2 Absolute Nucleated RBC 0.000 Band Neutrophils % Not Reportable Nucleated RBC % 0.0 Platelet Estimate Adequate Anisocytosis 1+ Microcytosis 1+ Schistocytes None seen PT INR APTT D-Dimer Sodium 134 L Potassium 3.8 Chloride 105 Carbon Dioxide 22 Anion Gap 7 BUN 5 L Creatinine 0.45 L Estim Creat Clear Calc 150 Estimated GFR > 60 Glucose 214 H POC Capillary Glucose 223 H 210 H Hemoglobin A1c Lactic Acid 1.9 Calcium 8.3 L Total Bilirubin AST ALT Alkaline Phosphatase Troponin I C-Reactive Protein Total Protein Albumin Lipase Beta-Hydroxybutyrate/Acetoacetate Urine Color Urine Appearance Urine pH Ur Specific [place] Urine Protein Urine Glucose (UA) Urine Ketones Ur Blood (Man) Urine Nitrate Urine Bilirubin Urine Urobilinogen Add Ur Microanalysis Leukocyte Esterase Rfl Urine RBC Urine WBC Ur Squamous Epith Cells Urine Bacteria Urine Casts POC Urine HCG, Qual Influenza A (RT-PCR) Influenza B (RT-PCR) RSV (RT-PCR) SARS-CoV-2 RNA (RT-PCR) Quality VTE Prophylaxis VTE prophylaxis: mechanical ordered
[2024-10-24] MEDS: CLINDAMYCIN HCL 150 MG CAP 300 MG PO ×2 (11:50→20:16)
[2024-10-24] MEDS: cefTRIAXone 2 GM in SODIUM CHLORIDE 0.9% IV 100 ML 200 ML IVPB (17:02)
[2024-10-25] VITALS (12 sets, daily range): BP systolic 145–163; BP diastolic 87–106; PULSE 104–115; RESP 14–20; TEMP 36.3–36.6; O2SAT 99–100
[2024-10-25] MEDS: SODIUM CHLORIDE 0.9% IV 1,000 ML 100 ML IV CONT (07:01)
[2024-10-25 07:02] LABS: Hematocrit 33.0 % (37.0-47.0); Hemoglobin 10.2 g/dL (12.0-15.0); Immature Granulocyte Percent A 3.2 % (0-0.5); Lymphocytes Absolute Auto 2.83 K/mm3 (0.9-3.2); Mean Corpuscular HGB Conc 30.9 g/dl (32-36); Mean Corpuscular Hemoglobin 22.7 pg (26-34); Mean Corpuscular Volume 73.3 fl (80-100); Nucleated Red Blood Cells Absolute Auto 0.000 K/mm3 (0.0-0.012); Nucleated Red Blood Cells Perc 0.0 % (0.0-0.2); Platelet Count Result 359 k/mm3 (150-375); Red Blood Count 4.50 M/mm3 (4.2-5.4); White Blood Count 6.6 K/mm3 (4.5-10.0)
[2024-10-25 07:27] LABS: Alanine Aminotransferase 13 U/L (6-35); Albumin Level 3.2 g/dL (3.5-5.1); Alkaline Phosphatase 109 U/L (38-126); Anion Gap 5 mmol/L (4-12); Aspartate Amino Transferase 21 U/L (14-36); Bilirubin,Total 0.4 mg/dL (0.2-1.3); Blood Urea Nitrogen 5 mg/dL (7-17); Calcium 8.3 mg/dL (8.4-10.2); Carbon Dioxide 23 mmol/L (22-30); Chloride 106 mmol/L (98-107); Estimated CRCL calculation 159 ml/min; Estimated Glomerular Filt Rate > 60; Glucose 181 mg/dL (65-110); Potassium 4.0 mmol/L (3.4-5.0); Sodium 134 mmol/L (137-145); Total Protein 7.1 g/dL (6.3-8.2)
[2024-10-25 07:32] LABS: Microcytosis 1+ (NORMAL); Schistocytes None Seen
[2024-10-25] MEDS: CLINDAMYCIN HCL 150 MG CAP 300 MG PO ×2 (08:15→21:16)
[2024-10-25] MEDS: LORATADINE 10 MG TABLET PO (08:15)
[2024-10-25] MEDS: LOSARTAN POTASSIUM 25 MG TABLET 50 MG PO (08:24)
[2024-10-25] MEDS: INSULIN ASPART (*BKC) 100 UNITS/ML SUB-Q ×4 (08:25→17:06)
[2024-10-25] MEDS: INSULIN GLARGINE (*BKC) 100 UNITS/ML 10 UNITS SUB-Q (08:25)
[2024-10-25] MEDS: ACETAMINOPHEN 325 MG TABLET 650 MG PO (09:06)
--- NOTE | 2024-10-25 10:20 | WPDIDCN ---
Assessment and Plan Assessment and plan (1) Pyelonephritis: Code(s): N12 - Tubulo-interstitial nephritis, not specified as acute or chronic Status: Acute (2) Urinary tract infection: Qualifiers: Hematuria presence: without hematuria Urinary tract infection type: site unspecified Qualified Code(s): N39.0 - Urinary tract infection, site not specified Code(s): N39.0 - Urinary tract infection, site not specified Status: Acute (3) Sepsis: Qualifiers: Sepsis acute organ dysfunction status: unspecified Sepsis type: sepsis due to unspecified organism Qualified Code(s): A41.9 - Sepsis, unspecified organism Code(s): A41.9 - Sepsis, unspecified organism Status: Acute (4) Hidradenitis suppurativa: Code(s): L73.2 - Hidradenitis suppurativa Status: Chronic (5) Type 2 diabetes mellitus with hyperglycemia: Code(s): E11.65 - Type 2 diabetes mellitus with hyperglycemia Status: Acute (6) Effusion of left knee joint: Code(s): M25.462 - Effusion, left knee Status: Acute Plan # Complicated urinary tract infection with right - sided pyelonephritis. -- urine culture pending. On ceftriaxone. # Chronic hidradenitis suppurativa with left greater than right groin involvement flare. -- left groin with sinus formation and some drainage, no evidence of abscess. -- general surgery has evaluated. Medical management planned. -- on clindamycin and rifampin. Tachycardia and elevated lactate on presentation, possible sepsis, resolving. Type 2 diabetes with hyperglycemia. Plan: -- continue ceftriaxone pending urine culture results. -- continue clindamycin rifampin directed toward hidradenitis suppurativa flare. -- further recommendations to follow. Thank you for the consult. Patient was seen via video telehealth consultation with the assistance of staff. Chart, data, and patient independently reviewed. Patient was located at [facility] while I was located in my [place] office. Received verbal consent from patient. HPI Data of Consult Date/Time: 10/25/24 10:20 Requesting Physician: Keisha Marcus MD Primary Care Provider: PHYSICIAN NOT ON STAFF Consult Narrative Reason for consult: right pyelonephritis; hidradenitis suppurativa Narrative: Cande Davies is a 39 year old female with history of hidradenitis suppurativa, type 2 diabetes, obstructive sleep apnea, and iron deficiency anemia. She presented to the ED 10/23 with multiple complaints progressing over a 2 week time ; these include; fever, right lower quadrant abdominal pain (reported in ED but now claims left torso pain), left knee pain, shortness of breath with wheezing, and back pain. although afebrile since presentation and with normal white blood cell count she has been tachycardic and initial lactate was elevated to 3.9. Workup is identified significant pyuria with white blood cells greater than [address] scan with focal areas of striated hypo attention of the lateral aspect of the right kidney most consistent with subtle pyelonephritis. CT also identified fat stranding involving the left inguinal region with presumed reactive left inguinal lymph nodes. x-ray of left knee shows large joint effusion. Chest x-ray is clear. Urine, blood, and groin cultures are pending. No known antibiotic allergies and she has been placed on ceftriaxone along with rifampin and clindamycin, the latter 2 agents directed toward hidradenitis suppurativa. Review of Systems Review of Systems: All systems reviewed & are unremarkable except as noted in HPI and below PMFSH Past Medical History Medical History Obstructive sleep apnea Untreated Iron deficiency anemia History of blood transfusion Hidradenitis suppurativa Insulin dependent type 2 diabetes mellitus Surgical History Surgical History History of excision of lesion Excision of bilateral axillary hidraden[place] [address] Philippe History of section Family History Family History Sibling Family history of type 2 diabetes mellitus Father Family history of type 2 diabetes mellitus Mother Hypertension Social History Social History Social History: Surrogate medical decision maker: Sue Palma, mother. Along with her . She has 1 child. She works for [employer]. Code status: Full code. Smoking status: Never smoker Second hand tobacco smoke exposure: Yes (at work) Alcohol intake: never Substance use: never Lack of Transportation: No Lack of Food: Never True Current Housing: I Have Housing Concerned About Future Housing: No Difficulty Paying Gas/Electric Bills: No Difficulty Paying for Meds: YES Currently Unemployed: No Education: High School Diploma/GED Difficulty w/ Childcare or Family Care: No Spiritual care concerns: No Meds Home Medications and Allergies Home Medications ?Medication ?Instructions ?Recorded ?Confirmed ?Type glucagon HCl 1 mg solution for 1 mg subcut Q20M PRN Hypoglycemia 01/10/20 10/24/24 History injection (Glucagon (HCl) Emergency Kit) glipizide 10 mg tablet 10 mg PO DAILY 11/23/22 10/24/24 History insulin NPH-regular 70-30 U-100 45 unit subcut BID 11/23/22 10/24/24 History insulin 100 unit/mL subcutaneous pen (Novolin 70-30 FlexPen U-100 Insulin) loratadine 10 mg tablet 10 mg PO QAM #30 tabs 11/24/22 10/24/24 Rx Allergies Allergy/AdvReac Type Severity Reaction Status Date / Time metformin AdvReac Intermediate Vomiting Verified 10/23/24 20:56 Vital Signs Vital Signs - 24 hr 10/24/24 12:00 10/24/24 14:00 10/24/24 16:00 Temperature 97.2 F L Pulse Rate 111 H 113 H 101 H Respiratory Rate 16 Blood Pressure 155/95 H Pulse Oximetry 100 Oxygen Delivery 10/24/24 20:00 10/24/24 20:00 10/24/24 20:52 Temperature 97.3 F L Pulse Rate 107 H 112 H Respiratory Rate 18 Blood Pressure 196/84 H Pulse Oximetry 99 Oxygen Delivery Room Air 10/24/24 21:40 10/24/24 22:41 10/25/24 00:00 Temperature 96.7 F L Pulse Rate 108 H 112 H 115 H Respiratory Rate 20 Blood Pressure 196/104 H 179/98 H Pulse Oximetry 99 100 Oxygen Delivery 10/25/24 00:14 10/25/24 00:18 10/25/24 04:00 Temperature 97.8 F Pulse Rate 113 H 104 H Respiratory Rate 20 Blood Pressure 151/88 H 151/88 H Pulse Oximetry 100 Oxygen Delivery 10/25/24 04:45 10/25/24 08:00 Temperature 98 F Pulse Rate 106 H Respiratory Rate 20 Blood Pressure 163/95 H Pulse Oximetry 99 Oxygen Delivery Room Air Exam Narrative: She is awake and alert and nontoxic. Some obesity. Breathing comfortably and without active cough. No abnormal abdominal distention. Positive right CVA tenderness. Left inguinal region with minimally draining sinus. Area is tender. No rash. Results Labs 10/25/24 06:36 10/25/24 06:36 Labs: Short CBC 10/25/24 Range/Units 06:36 WBC 6.6 (4.5-10.0) K/mm3 Hgb 10.2 L (12.0-15.0) g/dL Hct 33.0 L (37.0-47.0) % Plt Count 359 (150-375) k/mm3 BMP 10/25/24 06:36 Sodium 134 L Potassium 4.0 Chloride 106 Carbon Dioxide 23 BUN 5 L Creatinine 0.42 L Glucose 181 H Calcium 8.3 L Liver Function 10/25/24 Range/Units 06:36 Total Bilirubin 0.4 (0.2-1.3) mg/dL AST 21 (14-36) U/L ALT 13 (6-35) U/L Alkaline Phosphatase 109 (38-126) U/L Albumin 3.2 L (3.5-5.1) g/dL
--- NOTE | 2024-10-25 10:41 | P.PNIM_ITS ---
Progress Note: A&P Assessment and Plan (1) Tachycardia: Code(s): R00.0 - Tachycardia, unspecified Status: Acute (2) Chronic hyperglycemia: Code(s): R73.9 - Hyperglycemia, unspecified Status: Acute (3) Insulin dependent type 2 diabetes mellitus: Code(s): E11.9 - Type 2 diabetes mellitus without complications; Z79.4 - intermediate school teacher (current) use of insulin Status: Acute (4) Sepsis: Qualifiers: Sepsis acute organ dysfunction status: unspecified Sepsis type: sepsis due to unspecified organism Qualified Code(s): A41.9 - Sepsis, unspecified organism Code(s): A41.9 - Sepsis, unspecified organism Status: Acute (5) Cellulitis of left groin: Code(s): L03.314 - Cellulitis of groin Status: Acute (6) Hidradenitis suppurativa: Code(s): L73.2 - Hidradenitis suppurativa Status: Chronic (7) Urinary tract infection: Qualifiers: Hematuria presence: without hematuria Urinary tract infection type: site unspecified Qualified Code(s): N39.0 - Urinary tract infection, site not specified Code(s): N39.0 - Urinary tract infection, site not specified Status: Acute Plan 39-year-old female patient who has a history of uncontrolled diabetes, hydradenitis suppurativa, and urinary tract infections. She presented to the emergency room with complaint of right lower quadrant abdominal pain, left knee pain, fevers, shortness of breath, slight chest pain, wheezing, and back pain. Although these symptoms have been going on for 2 weeks they appear to have g lamar worse over the last couple days. Her blood sugars were 437, 377 and then 223. Her urine was cloudy with 2+ blood, 3+ glucose, positive nitrate, 1+ leukocyte esterase, the urine wbc's greater than 100, and urine bacteria 4+. She was given normal saline bolus, Rocephin, hydralazine and Tylenol in the emergency room. As per ED provider patient CT scan indicates subcutaneous fat stranding involving the left inguinal region with presumed reactive left inguinal lymph nodes. Subtle focal areas striated hypoattenuation of the lateral aspect of the right kidney is most consistent with subtle pyelonephritis. No perinephric space abscess, no hydronephrosis or ureteral stone. 1. Left groin cellulitis: No evidence of underlying abscess General surgery following Wound Care consult Follow-up blood cultures, wound culture No leukocytosis Id has been consulted Currently on ceftriaxone, clindamycin, rifampicin Will defer further management of antibiotics to ID 2. Bilateral pyelonephritis: Await urine culture Continue with ceftriaxone 3. Uncontrolled diabetes mellitus: Hemoglobin A1c 12.1 Patient is noncompliant due to no insurance and medications being unaffordable Patient does not check her blood glucose Poor diet Blood glucose checked t.i.d. a.c. HS Patient is not a candidate for glipizide given her elevated hemoglobin A1c of 12.1 Will not resume upon discharge Will start on Lantus along with mealtime insulin Continue with sliding scale insulin as well Adjust dose based on blood glucose levels Will benefit from certified lactation educator consult Care coordination to help with insurance issues Might benefit with medications on [employer] [facility] 4 dollar plan Appreciate Nutrition consult 4. Hypertension: Increase the dose of losartan 5. Left knee effusion: Will obtain CT left knee Will consider orthopedic consult based on his CT scan 6. Code status: Full 7. DVT prophylaxis: Heparin subQ 8. Disposition: Pending improvement Time Spent With Patient Time: 41 minutes Subjective Date/time seen: 10/25/24 10:41 Interval history: No acute events overnight Review of Systems Review of Systems: All systems reviewed & are unremarkable except as noted in HPI and below Exam Const: General: cooperative, comfortable, no acute distress and awake Nutritional Appearance: well nourished Orientation/consciousness: patient oriented x3 Limitations: no limitations HENMT: Head: normal to inspection and normocephalic Ears: external ears normal Eyes: General: appearance normal, both eyes and all related structures Eyelids: eyelids normal Neck: Neck: supple Resp: Effort & Inspection: normal respiratory effort Auscultation: clear to auscultation bilaterally Cardio: Rate: regular rate Rhythm: regular rhythm Heart sounds: S1 nor mal heart sound present and S2 normal heart sound present GI: Inspection: normal to inspection Auscultation: normal bowel sounds Skin: General skin exam: normal color and fistulous tract Lesions: no lesions Rashes: no rashes Wounds: fistulous tract Other: Serous sanguinous drainage from a left growing. Neuro: General: patient oriented x3 Cranial nerves: Yes Equal, round and reactive pupils present Cognition (Neuro): normal cognition Speech: normal speech Psych: Mental Status: mental status grossly normal Objective Data Vital Signs Vital Signs: Vital Signs - 24 hr 10/24/24 12:00 10/24/24 14:00 10/24/24 16:00 Temperature 97.2 F L Pulse Rate 111 H 113 H 101 H Respiratory Rate 16 Blood Pressure 155/95 H Pulse Oximetry 100 Oxygen Delivery 10/24/24 20:00 10/24/24 20:00 10/24/24 20:52 Temperature 97.3 F L Pulse Rate 107 H 112 H Respiratory Rate 18 Blood Pressure 196/84 H Pulse Oximetry 99 Oxygen Delivery Room Air 10/24/24 21:40 10/24/24 22:41 10/25/24 00:00 Temperature 96.7 F L Pulse Rate 108 H 112 H 115 H Respiratory Rate 20 Blood Pressure 196/104 H 179/98 H Pulse Oximetry 99 100 Oxygen Delivery 10/25/24 00:14 10/25/24 00:18 10/25/24 04:00 Temperature 97.8 F Pulse Rate 113 H 104 H Respiratory Rate 20 Blood Pressure 151/88 H 151/88 H Pulse Oximetry 100 Oxygen Delivery 10/25/24 04:45 10/25/24 08:00 Temperature 98 F Pulse Rate 106 H Respiratory Rate 20 Blood Pressure 163/95 H Pulse Oximetry 99 Oxygen Delivery Room Air Intake/Output Intake/Output: Intake & Output 10/22/24 10/23/24 10/24/24 10/25/24 23:59 23:59 23:59 23:59 Intake Total 3850 1392 1500 Output Total 300 Balance 3850 1392 1200 Meds/Results Medications: Active Medications Generic Name Dose Route Start Last Admin Trade Name Freq PRN Reason Stop Dose Admin Acetaminophen 650 mg 10/24/24 01:04 10/25/24 09:06 Acetaminophen 325 Mg Tablet PO 650 mg Q4H PRN Administration Mild Pain (1-3) or Fever Clindamycin HCl 300 mg 10/24/24 11:00 10/25/24 08:15 Clindamycin Hcl 150 Mg Cap PO 300 mg Q12HR ANASTACIA Administration Dextrose 12.5 gm 10/25/24 08:05 Dextrose 50% 25 Gm/50 Ml Syringe IV PUSH PRN PRN Hypoglycemia Protocol Glipizide 10 mg 10/24/24 07:30 10/25/24 08:16 Glipizide 5 Mg Tablet PO Not Given On Hold: 10/25/24 08:05 DAILY@0730 ANASTACIA Glucagon 1 mg 10/25/24 08:05 Glucagon For Inj 1 Mg Vial IM PRN PRN Hypoglycemia Protocol Glucose 15 gm 10/25/24 08:05 Glucose Oral Gel 15 Gm Of Glucse In 37.5 Gm Tube PO PRN PRN Hypoglycemia Protocol Hydralazine HCl 10 mg 10/24/24 04:07 10/24/24 20:55 Hydralazine Hcl 20 Mg/Ml Vial IV PUSH 10 mg Q8H PRN Administration Blood Pressure - High Ceftriaxone Sodium 2 gm/ 100 mls @ 200 mls/hr 10/24/24 17:00 10/24/24 17:02 Sodium Chloride IVPB 200 mls/hr Q24H ANASTACIA Administration Dextrose 1,000 mls @ 100 mls/hr 10/25/24 08:05 Dextrose 5% 1,000 Ml IVPB PRN PRN Hypoglycemia Protocol Insulin Aspart 3 - 6 units 10/24/24 08:00 10/25/24 08:17 Insulin Aspart (*Bkc) 100 Units/Ml SUB-Q Not Given TIDWM [facility] Protocol Insulin Aspart 4 units 10/25/24 08:10 10/25/24 08:25 Insulin Aspart (*Bkc) 100 Units/Ml 0.05 units/kg (4 units) 4 units SUB-Q Administration TIDWM [facility] Insulin Glargine 10 units 10/25/24 09:00 10/25/24 08:25 Insulin Glargine (*Bkc) 100 Units/Ml SUB-Q 10 units DAILY ANASTACIA Administration Loratadine 10 mg 10/24/24 09:00 10/25/24 08:15 Loratadine 10 Mg Tablet PO 10 mg QAM ANASTACIA Administration Losartan Potassium 50 mg 10/25/24 09:00 10/25/24 08:24 Losartan Potassium 25 Mg Tablet PO 50 mg DAILY ANASTACIA Administration Rifampin 300 mg 10/24/24 11:00 10/25/24 08:15 Rifampin 300 Mg Capsule PO 300 mg Q12HR ANASTACIA Administration Radiology Results: ITS Impressions Chest X-Ray 10/23/24 20:17 IMPRESSION: 1. No acute cardiopulmonary findings. Abdomen/Pelvis CT 10/24/24 08:07 IMPRESSION: 1. Cystitis. 2. Mild bilateral pyelonephritis. Soft Tissue Ultrasound 10/24/24 13:01 IMPRESSION: 1. Likely reactive left inguinal lymphadenopathy with no abscess identified. Assessment is however limited as patient refused imaging directly underlying the site of the skin wound. Labs Labs: Laboratory Results - last 24 hr 10/24/24 10/24/24 10/24/24 11:44 16:31 20:37 WBC RBC Hgb Hct MCV MCH MCHC RDW Plt Count MPV Immature Gran % (Auto) Neut % (Auto) Lymph % (Auto) [place] % (Auto) Eos % (Auto) Baso % (Auto) Lymph # (Auto) [place] # (Auto) Eos # (Auto) Baso # (Auto) Abs Immat Gran (auto) Absolute Neuts (auto) Absolute Nucleated RBC Band Neutrophils % Nucleated RBC % Platelet Estimate Microcytosis Schistocytes Sodium Potassium Chloride Carbon Dioxide Anion Gap BUN Creatinine Estim Creat Clear Calc Estimated GFR Glucose POC Capillary Glucose 196 H 160 H 222 H Calcium Total Bilirubin AST ALT Alkaline Phosphatase Total Protein Albumin 10/25/24 10/25/24 06:36 07:53 WBC 6.6 RBC 4.50 Hgb 10.2 L Hct 33.0 L MCV 73.3 L MCH 22.7 L MCHC 30.9 L RDW 16.2 H Plt Count 359 MPV 9.1 Immature Gran % (Auto) 3.2 H Neut % (Auto) 43.3 L Lymph % (Auto) 43.1 [place] % (Auto) 7.3 Eos % (Auto) 2.3 Baso % (Auto) 0.8 Lymph # (Auto) 2.83 [place] # (Auto) 0.5 Eos # (Auto) 0.2 Baso # (Auto) 0.1 Abs Immat Gran (auto) 0.21 H Absolute Neuts (auto) 2.8 Absolute Nucleated RBC 0.000 Band Neutrophils % Not Reportable Nucleated RBC % 0.0 Platelet Estimate Adequate Microcytosis 1+ Schistocytes None seen Sodium 134 L Potassium 4.0 Chloride 106 Carbon Dioxide 23 Anion Gap 5 BUN 5 L Creatinine 0.42 L Estim Creat Clear Calc 159 Estimated GFR > 60 Glucose 181 H POC Capillary Glucose 176 H Calcium 8.3 L Total Bilirubin 0.4 AST 21 ALT 13 Alkaline Phosphatase 109 Total Protein 7.1 Albumin 3.2 L Quality VTE Prophylaxis VTE prophylaxis: pharmacologic ordered
--- NOTE | 2024-10-25 12:18 | PM.PNGS ---
Progress Note: A&P Assessment and Plan (1) Hidradenitis suppurativa: Code(s): L73.2 - Hidradenitis suppurativa Status: Chronic Assessment and Plan: Patient with chronic hidradenitis suppurativa. She has bilateral groin disease, left worse than right. The largest area on the left groin looks better today with the induration and erythema improved. Still no obvious abscess that would require I&D. Continue clindamycin and rifampin for antibiotic therapy. Will also continue gauze dressing changes as needed for drainage. We again discussed the importance of maintaining control of her diabetes to help with her HS disease. It is likely that she will continue to have issues with her HS disease if she does not manage her diabetes once discharged. (2) Pyelonephritis: Code(s): N12 - Tubulo-interstitial nephritis, not specified as acute or chronic Status: Acute Assessment and Plan: Continue IV antibiotics per Hospitalist. (3) Type 2 diabetes mellitus with hyperglycemia: Code(s): E11.65 - Type 2 diabetes mellitus with hyperglycemia Status: Acute Assessment and Plan: Hgb A1C was 12.1 on admission. Discussed the importance of controlling her diabetes in regards to her HS disease. Management per Hospitalist. Plan I have discussed the patient's case and plan of care with Dr. Kohler. Subjective Subjective Date/Time Seen: 10/25/24 12:18 Interval history: No acute changes overnight. She feels like her left inguinal pain is better today. No other issues. Exam Const: General: comfortable and no acute distress Skin: Other: Left groin induration and erythema slightly improved today. Still with purulent drainage from a 1 cm open wound near some pits in the left lateral groin, less today. Multiple scattered pits and tunneling bilaterally, left worse than right groin, with appearance c/w hidradenitis suppurativa. Objective Data Vital Signs Vital Signs: Vital Signs - 24 hr 10/24/24 14:00 10/24/24 16:00 10/24/24 20:00 Temperature 97.2 F L Pulse Rate 113 H 101 H Respiratory Rate 16 Blood Pressure 155/95 H Pulse Oximetry 100 Oxygen Delivery Room Air 10/24/24 20:00 10/24/24 20:52 10/24/24 21:40 Temperature 97.3 F L Pulse Rate 107 H 112 H 108 H Respiratory Rate 18 20 Blood Pressure 196/84 H 196/104 H Pulse Oximetry 99 99 Oxygen Delivery 10/24/24 22:41 10/25/24 00:00 10/25/24 00:14 Temperature 96.7 F L Pulse Rate 112 H 115 H Respiratory Rate Blood Pressure 179/98 H 151/88 H Pulse Oximetry 100 Oxygen Delivery 10/25/24 00:18 10/25/24 04:00 10/25/24 04:45 Temperature 97.8 F 98 F Pulse Rate 113 H 104 H 106 H Respiratory Rate 20 20 Blood Pressure 151/88 H 163/95 H Pulse Oximetry 100 99 Oxygen Delivery 10/25/24 08:00 Temperature Pulse Rate Respiratory Rate Blood Pressure Pulse Oximetry Oxygen Delivery Room Air Intake/Output Intake/Output: Intake & Output 10/22/24 10/23/24 10/24/24 10/25/24 23:59 23:59 23:59 23:59 Intake Total 3850 1392 1500 Output Total 300 Balance 3850 1392 1200 Meds/Results Medications: Active Medications Generic Name Dose Route Start Last Admin Trade Name Freq PRN Reason Stop Dose Admin Acetaminophen 650 mg 10/24/24 01:04 10/25/24 09:06 Acetaminophen 325 Mg Tablet PO 650 mg Q4H PRN Administration Mild Pain (1-3) or Fever Clindamycin HCl 300 mg 10/24/24 11:00 10/25/24 08:15 Clindamycin Hcl 150 Mg Cap PO 300 mg Q12HR ANASTACIA Administration Dextrose 12.5 gm 10/25/24 08:05 Dextrose 50% 25 Gm/50 Ml Syringe IV PUSH PRN PRN Hypoglycemia Protocol Glipizide 10 mg 10/24/24 07:30 10/25/24 08:16 Glipizide 5 Mg Tablet PO Not Given On Hold: 10/25/24 08:05 DAILY@0730 [facility] Glucagon 1 mg 10/25/24 08:05 Glucagon For Inj 1 Mg Vial IM PRN PRN Hypoglycemia Protocol Glucose 15 gm 10/25/24 08:05 Glucose Oral Gel 15 Gm Of Glucse In 37.5 Gm Tube PO PRN PRN Hypoglycemia Protocol Heparin Sodium (Porcine) 5,000 units 10/25/24 14:00 Heparin Sodium 5,000 Units/Ml Vial SUB-Q Q8HR [facility] Hydralazine HCl 10 mg 10/24/24 04:07 10/24/24 20:55 Hydralazine Hcl 20 Mg/Ml Vial IV PUSH 10 mg Q8H PRN Administration Blood Pressure - High Ceftriaxone Sodium 2 gm/ 100 mls @ 200 mls/hr 10/24/24 17:00 10/24/24 17:02 Sodium Chloride IVPB 200 mls/hr Q24H ANASTACIA Administration Dextrose 1,000 mls @ 100 mls/hr 10/25/24 08:05 Dextrose 5% 1,000 Ml IVPB PRN PRN Hypoglycemia Protocol Insulin Aspart 3 - 6 units 10/24/24 08:00 10/25/24 11:49 Insulin Aspart (*Bkc) 100 Units/Ml SUB-Q 3 units TIDWM ANASTACIA Administration Protocol Insulin Aspart 4 units 10/25/24 08:10 10/25/24 11:50 Insulin Aspart (*Bkc) 100 Units/Ml 0.05 units/kg (4 units) 4 units SUB-Q Administration TIDWM ANASTACIA Insulin Glargine 10 units 10/25/24 09:00 10/25/24 08:25 Insulin Glargine (*Bkc) 100 Units/Ml SUB-Q 10 units DAILY ANASTACIA Administration Loratadine 10 mg 10/24/24 09:00 10/25/24 08:15 Loratadine 10 Mg Tablet PO 10 mg QAM ANASTACIA Administration Losartan Potassium 50 mg 10/25/24 09:00 10/25/24 08:24 Losartan Potassium 25 Mg Tablet PO 50 mg DAILY ANASTACIA Administration Rifampin 300 mg 10/24/24 11:00 10/25/24 08:15 Rifampin 300 Mg Capsule PO 300 mg Q12HR ANASTACIA Administration Radiology Results: ITS Impressions Chest X-Ray 10/23/24 20:17 IMPRESSION: 1. No acute cardiopulmonary findings. Abdomen/Pelvis CT 10/24/24 08:07 IMPRESSION: 1. Cystitis. 2. Mild bilateral pyelonephritis. Soft Tissue Ultrasound 10/24/24 13:01 IMPRESSION: 1. Likely reactive left inguinal lymphadenopathy with no abscess identified. Assessment is however limited as patient refused imaging directly underlying the site of the skin wound. Knee CT 10/25/24 11:27 IMPRESSION: 1. Mild left knee osteoarthritis. 2. Large left knee joint effusion. 3. Small Brannon's cyst. Labs Labs: Laboratory Results - last 24 hr 10/24/24 10/24/2410/25/25 16:31 20:37 06:36 WBC 6.6 RBC 4.50 Hgb 10.2 L Hct 33.0 L MCV 73.3 L MCH 22.7 L MCHC 30.9 L RDW 16.2 H Plt Count 359 MPV 9.1 Immature Gran % (Auto) 3.2 H Neut % (Auto) 43.3 L Lymph % (Auto) 43.1 [place] % (Auto) 7.3 Eos % (Auto) 2.3 Baso % (Auto) 0.8 Lymph # (Auto) 2.83 [place] # (Auto) 0.5 Eos # (Auto) 0.2 Baso # (Auto) 0.1 Abs Immat Gran (auto) 0.21 H Absolute Neuts (auto) 2.8 Absolute Nucleated RBC 0.000 Band Neutrophils % Not Reportable Nucleated RBC % 0.0 Platelet Estimate Adequate Microcytosis 1+ Schistocytes None seen Sodium 134 L Potassium 4.0 Chloride 106 Carbon Dioxide 23 Anion Gap 5 BUN 5 L Creatinine 0.42 L Estim Creat Clear Calc 159 Estimated GFR > 60 Glucose 181 H POC Capillary Glucose 160 H 222 H Calcium 8.3 L Total Bilirubin 0.4 AST 21 ALT 13 Alkaline Phosphatase 109 Total Protein 7.1 Albumin 3.2 L 10/25/24 10/25/24 07:53 11:45 WBC RBC Hgb Hct MCV MCH MCHC RDW Plt Count MPV Immature Gran % (Auto) Neut % (Auto) Lymph % (Auto) [place] % (Auto) Eos % (Auto) Baso % (Auto) Lymph # (Auto) [place] # (Auto) Eos # (Auto) Baso # (Auto) Abs Immat Gran (auto) Absolute Neuts (auto) Absolute Nucleated RBC Band Neutrophils % Nucleated RBC % Platelet Estimate Microcytosis Schistocytes Sodium Potassium Chloride Carbon Dioxide Anion Gap BUN Creatinine Estim Creat Clear Calc Estimated GFR Glucose POC Capillary Glucose 176 H 223 H Calcium Total Bilirubin AST ALT Alkaline Phosphatase Total Protein Albumin
--- NOTE | 2024-10-25 14:57 | PCCDE ---
10/25/24: Attempted to complete DM Consult. Pt in process of Medical Video Conference. I will follow up tomorrow.
[2024-10-25] MEDS: cefTRIAXone 2 GM in SODIUM CHLORIDE 0.9% IV 100 ML 200 ML IVPB (17:07)
[2024-10-26] VITALS (10 sets, daily range): BP systolic 136–163; BP diastolic 84–110; PULSE 95–121; RESP 16–20; TEMP 36.4–36.6; O2SAT 97–100; BMI 33.3
--- NOTE | 2024-10-26 05:33 | PC.NURSE ---
Notified Sabina Cline regarding pts BP. 0435 pts BP 165/100 manual, hydralazine 10mg IV given. 0525 recheck BP 165/90 manual. Advised to give 0900 dose of Cozaar 50mg PO now and hold 0900 dose of Claritin.
[2024-10-26] MEDS: LOSARTAN POTASSIUM 25 MG TABLET 50 MG PO (05:41)
[2024-10-26 06:51] LABS: Hematocrit 33.7 % (37.0-47.0); Hemoglobin 10.3 g/dL (12.0-15.0); Immature Granulocyte Percent A 3.7 % (0-0.5); Lymphocytes Absolute Auto 2.87 K/mm3 (0.9-3.2); Mean Corpuscular HGB Conc 30.6 g/dl (32-36); Mean Corpuscular Hemoglobin 22.4 pg (26-34); Mean Corpuscular Volume 73.4 fl (80-100); Nucleated Red Blood Cells Absolute Auto 0.000 K/mm3 (0.0-0.012); Nucleated Red Blood Cells Perc 0.0 % (0.0-0.2); Platelet Count Result 370 k/mm3 (150-375); Red Blood Count 4.59 M/mm3 (4.2-5.4); White Blood Count 5.7 K/mm3 (4.5-10.0)
[2024-10-26 07:18] LABS: Anion Gap 8 mmol/L (4-12); Blood Urea Nitrogen 7 mg/dL (7-17); Calcium 8.5 mg/dL (8.4-10.2); Carbon Dioxide 21 mmol/L (22-30); Chloride 103 mmol/L (98-107); Estimated CRCL calculation 170 ml/min; Estimated Glomerular Filt Rate > 60; Glucose 185 mg/dL (65-110); Potassium 3.7 mmol/L (3.4-5.0); Sodium 132 mmol/L (137-145)
[2024-10-26 07:27] LABS: Hypochromasia 1+; Tear Drop Cells Occasional
[2024-10-26 07:28] LABS: Schistocytes None Seen
[2024-10-26] MEDS: INSULIN GLARGINE (*BKC) 100 UNITS/ML 14 UNITS SUB-Q (08:45)
[2024-10-26] MEDS: INSULIN ASPART (*BKC) 100 UNITS/ML 7 UNITS SUB-Q ×3 (08:46→17:14)
[2024-10-26] MEDS: ACETAMINOPHEN 325 MG TABLET 650 MG PO (08:57)
[2024-10-26] MEDS: CLINDAMYCIN HCL 150 MG CAP 300 MG PO ×2 (08:57→21:12)
--- NOTE | 2024-10-26 09:30 | P.PN_ITS ---
Progress Note: A&P Assessment and Plan (1) Hidradenitis suppurativa: Code(s): L73.2 - Hidradenitis suppurativa Status: Chronic Assessment and Plan: Improving with just oral abx tx. Continue oral abx at home for another 10-14 days. Can follow up in the office with me. Disposition as per Hospitalist. Subjective Date/time seen: 10/26/24 09:30 Interval history: No complaints, clinically stable. Exam Skin: Other: Bilateral groin hidriadenitis wounds improving with less redness, and decreasing induration. Minimal serous drainage. No pus drainage. Objective Data Vital Signs Vital Signs: Vital Signs - 24 hr 10/25/24 12:00 10/25/24 14:00 10/25/24 16:00 Temperature 36.3 C L Pulse Rate 112 H 105 H 106 H Respiratory Rate 14 Blood Pressure 157/87 H Pulse Oximetry 100 Oxygen Delivery 10/25/24 20:00 10/25/24 20:00 10/25/24 20:15 Temperature 36.6 C Pulse Rate 115 H 114 H Respiratory Rate 20 Blood Pressure 162/106 H Pulse Oximetry 100 Oxygen Delivery Room Air 10/25/24 21:20 10/26/24 00:00 10/26/24 04:00 Temperature Pulse Rate 100 100 Respiratory Rate Blood Pressure 145/90 H Pulse Oximetry Oxygen Delivery 10/26/24 05:03 10/26/24 07:00 10/26/24 08:00 Temperature 36.4 C Pulse Rate 95 Respiratory Rate 16 Blood Pressure 163/105 H 152/93 H Pulse Oximetry 97 Oxygen Delivery Room Air Intake/Output Intake/Output: Intake & Output 10/23/24 10/24/24 10/25/24 10/26/24 23:59 23:59 23:59 23:59 Intake Total 3850 1492 1858 690 Output Total 300 Balance 3850 1492 6848 690 Meds/Results Medications: Active Medications Generic Name Dose Route Start Last Admin Trade Name Freq PRN Reason Stop Dose Admin Acetaminophen 650 mg 10/24/24 01:04 10/26/24 08:57 Acetaminophen 325 Mg Tablet PO 650 mg Q4H PRN Administration Mild Pain (1-3) or Fever Clindamycin HCl 300 mg 10/24/24 11:00 10/26/24 08:57 Clindamycin Hcl 150 Mg Cap PO 300 mg Q12HR ANASTACIA Administration Dextrose 12.5 gm 10/25/24 08:05 Dextrose 50% 25 Gm/50 Ml Syringe IV PUSH PRN PRN Hypoglycemia Protocol Glipizide 10 mg 10/24/24 07:30 10/25/24 08:16 Glipizide 5 Mg Tablet PO Not Given On Hold: 10/25/24 08:05 DAILY@0730 ANASTACIA Glucagon 1 mg 10/25/24 08:05 Glucagon For Inj 1 Mg Vial IM PRN PRN Hypoglycemia Protocol Glucose 15 gm 10/25/24 08:05 Glucose Oral Gel 15 Gm Of Glucse In 37.5 Gm Tube PO PRN PRN Hypoglycemia Protocol Heparin Sodium (Porcine) 5,000 units 10/25/24 14:00 10/26/24 05:20 Heparin Sodium 5,000 Units/Ml Vial SUB-Q 5,000 units Q8HR ANASTACIA Administration Hydralazine HCl 10 mg 10/24/24 04:07 10/26/24 04:34 Hydralazine Hcl 20 Mg/Ml Vial IV PUSH 10 mg Q8H PRN Administration Blood Pressure - High Hydrochlorothiazide 25 mg 10/26/24 09:00 10/26/24 08:57 Hydrochlorothiazide 25 Mg Tablet PO 25 mg QAM ANASTACIA Administration Ceftriaxone Sodium 2 gm/ 100 mls @ 200 mls/hr 10/24/24 17:00 10/25/24 17:07 Sodium Chloride IVPB 200 mls/hr Q24H ANASTACIA Administration Dextrose 1,000 mls @ 100 mls/hr 10/25/24 08:05 Dextrose 5% 1,000 Ml IVPB PRN PRN Hypoglycemia Protocol Insulin Aspart 3 - 6 units 10/24/24 08:00 10/26/24 08:42 Insulin Aspart (*Bkc) 100 Units/Ml SUB-Q Not Given TIDWM ANASTACIA Protocol Insulin Aspart 7 units 10/26/24 08:35 10/26/24 08:46 Insulin Aspart (*Bkc) 100 Units/Ml SUB-Q 7 units TIDWM ANASTACIA Administration Insulin Glargine 14 units 10/26/24 09:00 10/26/24 08:45 Insulin Glargine (*Bkc) 100 Units/Ml SUB-Q 14 units DAILY ANASTACIA Administration Loratadine 10 mg 10/24/24 09:00 10/26/24 05:31 Loratadine 10 Mg Tablet PO Not Given QAM ANASTACIA Losartan Potassium 50 mg 10/25/24 09:00 10/26/24 05:41 Losartan Potassium 25 Mg Tablet PO 50 mg DAILY ANASTACIA Administration Rifampin 300 mg 10/24/24 11:00 10/26/24 08:58 Rifampin 300 Mg Capsule PO 300 mg Q12HR ANASTACIA Administration Radiology Results: ITS Impressions Chest X-Ray 10/23/24 20:17 IMPRESSION: 1. No acute cardiopulmonary findings. Abdomen/Pelvis CT 10/24/24 08:07 IMPRESSION: 1. Cystitis. 2. Mild bilateral pyelonephritis. Soft Tissue Ultrasound 10/24/24 13:01 IMPRESSION: 1. Likely reactive left inguinal lymphadenopathy with no abscess identified. Assessment is however limited as patient refused imaging directly underlying the site of the skin wound. Knee CT 10/25/24 11:27 IMPRESSION: 1. Mild left knee osteoarthritis. 2. Large left knee joint effusion. 3. Small Brannon's cyst. Labs Labs: Laboratory Results - last 24 hr 10/25/24 10/25/24 10/25/24 11:45 16:52 20:11 WBC RBC Hgb Hct MCV MCH MCHC RDW Plt Count MPV Immature Gran % (Auto) Neut % (Auto) Lymph % (Auto) [place] % (Auto) Eos % (Auto) Baso % (Auto) Lymph # (Auto) [place] # (Auto) Eos # (Auto) Baso # (Auto) Abs Immat Gran (auto) Absolute Neuts (auto) Absolute Nucleated RBC Band Neutrophils % Nucleated RBC % Platelet Estimate Hypochromasia Tear Drop Cells Schistocytes Sodium Potassium Chloride Carbon Dioxide Anion Gap BUN Creatinine Estim Creat Clear Calc Estimated GFR Glucose POC Capillary Glucose 223 H 165 H 267 H Calcium 10/26/24 10/26/24 06:07 07:46 WBC 5.7 RBC 4.59 Hgb 10.3 L Hct 33.7 L MCV 73.4 L MCH 22.4 L MCHC 30.6 L RDW 16.2 H Plt Count 370 MPV 8.9 Immature Gran % (Auto) 3.7 H Neut % (Auto) 35.6 L Lymph % (Auto) 50.0 H [place] % (Auto) 6.8 Eos % (Auto) 3.0 Baso % (Auto) 0.9 Lymph # (Auto) 2.87 [place] # (Auto) 0.4 Eos # (Auto) 0.2 Baso # (Auto) 0.1 Abs Immat Gran (auto) 0.21 H Absolute Neuts (auto) 2.1 Absolute Nucleated RBC 0.000 Band Neutrophils % Not Reportable Nucleated RBC % 0.0 Platelet Estimate Adequate Hypochromasia 1+ Tear Drop Cells Occasional Schistocytes None seen Sodium 132 L Potassium 3.7 Chloride 103 Carbon Dioxide 21 L Anion Gap 8 BUN 7 Creatinine 0.39 L Estim Creat Clear Calc 170 Estimated GFR > 60 Glucose 185 H POC Capillary Glucose 179 H Calcium 8.5
--- NOTE | 2024-10-26 11:17 | WPDINFPN2 ---
Progress Note: A&P Assessment and Plan (1) Pyelonephritis: Code(s): N12 - Tubulo-interstitial nephritis, not specified as acute or chronic Status: Acute (2) Urinary tract infection: Qualifiers: Hematuria presence: without hematuria Urinary tract infection type: site unspecified Qualified Code(s): N39.0 - Urinary tract infection, site not specified Code(s): N39.0 - Urinary tract infection, site not specified Status: Acute (3) Sepsis: Qualifiers: Sepsis acute organ dysfunction status: unspecified Sepsis type: sepsis due to unspecified organism Qualified Code(s): A41.9 - Sepsis, unspecified organism Code(s): A41.9 - Sepsis, unspecified organism Status: Acute (4) Hidradenitis suppurativa: Code(s): L73.2 - Hidradenitis suppurativa Status: Chronic (5) Type 2 diabetes mellitus with hyperglycemia: Code(s): E11.65 - Type 2 diabetes mellitus with hyperglycemia Status: Acute (6) Effusion of left knee joint: Code(s): M25.462 - Effusion, left knee Status: Acute Plan # Complicated urinary tract infection with right-sided pyelonephritis. -- urine culture with Gram-negative rods to date. On ceftriaxone. # Chronic hidradenitis suppurativa with left greater than right groin involvement flare. -- left groin with sinus formation and some drainage, no evidence of abscess. -- general surgery has evaluated. Medical management planned. -- on clindamycin and rifampin. Tachycardia and elevated lactate on presentation, possible sepsis, resolving. Type 2 diabetes with hyperglycemia. Plan: -- continue ceftriaxone pending urine culture results. Anticipate a 7 to 10 day course of appropriate antibiotics. May transition to oral if appropriate. -- continue clindamycin rifampin directed toward hidradenitis suppurativa flare. Anticipate continuing for 2 months. Patient was seen via video telehealth consultation with the assistance of staff. Chart, data, and patient independently reviewed. Patient was located at [facility] while I was located in my [place] office. Received verbal consent from patient. Subjective Date/time seen: 10/26/24 11:17 Interval history: 10/26/2024: Afebrile and vital signs stable. Tolerating room air. Normal white blood cell count. Feeling better. Urine culture 10/23: Gram-negative rods Ceftriaxone 10/24-- Clindamycin 10/24-- Rifampin 10/24-- Review of Systems Review of Systems: All systems reviewed & are unremarkable except as noted in HPI and below Exam Narrative: She is awake and alert and nontoxic. Some obesity. Sitting up comfortably in a chair. Breathing comfortably and without active cough. No abnormal abdominal distention. Positive right CVA tenderness. Left inguinal region with minimally draining sinus. Area is tender. No rash. Objective Data Vital Signs Vital Signs: Vital Signs - 24 hr 10/25/24 12:00 10/25/24 14:00 10/25/24 16:00 Temperature 97.3 F L Pulse Rate 112 H 105 H 106 H Respiratory Rate 14 Blood Pressure 157/87 H Pulse Oximetry 100 Oxygen Delivery 10/25/24 20:00 10/25/24 20:00 10/25/24 20:15 Temperature 98 F Pulse Rate 115 H 114 H Respiratory Rate 20 Blood Pressure 162/106 H Pulse Oximetry 100 Oxygen Delivery Room Air 10/25/24 21:20 10/26/24 00:00 10/26/24 04:00 Temperature Pulse Rate 100 100 Respiratory Rate Blood Pressure 145/90 H Pulse Oximetry Oxygen Delivery 10/26/24 05:03 10/26/24 07:00 10/26/24 08:00 Temperature 97.6 F Pulse Rate 95 Respiratory Rate 16 Blood Pressure 163/105 H 152/93 H Pulse Oximetry 97 Oxygen Delivery Room Air 10/26/24 08:00 Temperature Pulse Rate 113 H Respiratory Rate Blood Pressure Pulse Oximetry Oxygen Delivery Intake/Output Intake/Output: Intake & Output 10/23/24 10/24/24 10/25/24 10/26/24 23:59 23:59 23:59 23:59 Intake Total 3850 1492 1858 690 Output Total 300 Balance 3850 1492 1558 690 Meds/Results Medications: Active Medications Generic Name Dose Route Start Last Admin Trade Name Freq PRN Reason Stop Dose Admin Acetaminophen 650 mg 10/24/24 01:04 10/26/24 08:57 Acetaminophen 325 Mg Tablet PO 650 mg Q4H PRN Administration Mild Pain (1-3) or Fever Clindamycin HCl 300 mg 10/24/24 11:00 10/26/24 08:57 Clindamycin Hcl 150 Mg Cap PO 300 mg Q12HR ANASTACIA Administration Dextrose 12.5 gm 10/25/24 08:05 Dextrose 50% 25 Gm/50 Ml Syringe IV PUSH PRN PRN Hypoglycemia Protocol Glipizide 10 mg 10/24/24 07:30 10/25/24 08:16 Glipizide 5 Mg Tablet PO Not Given On Hold: 10/25/24 08:05 DAILY@0730 ANASTACIA Glucagon 1 mg 10/25/24 08:05 Glucagon For Inj 1 Mg Vial IM PRN PRN Hypoglycemia Protocol Glucose 15 gm 10/25/24 08:05 Glucose Oral Gel 15 Gm Of Glucse In 37.5 Gm Tube PO PRN PRN Hypoglycemia Protocol Heparin Sodium (Porcine) 5,000 units 10/25/24 14:00 10/26/24 05:20 Heparin Sodium 5,000 Units/Ml Vial SUB-Q 5,000 units Q8HR ANASTACIA Administration Hydralazine HCl 10 mg 10/24/24 04:07 10/26/24 04:34 Hydralazine Hcl 20 Mg/Ml Vial IV PUSH 10 mg Q8H PRN Administration Blood Pressure - High Hydrochlorothiazide 25 mg 10/26/24 09:00 10/26/24 08:57 Hydrochlorothiazide 25 Mg Tablet PO 25 mg QAM ANASTACIA Administration Ceftriaxone Sodium 2 gm/ 100 mls @ 200 mls/hr 10/24/24 17:00 10/25/24 17:07 Sodium Chloride IVPB 200 mls/hr Q24H ANASTACIA Administration Dextrose 1,000 mls @ 100 mls/hr 10/25/24 08:05 Dextrose 5% 1,000 Ml IVPB PRN PRN Hypoglycemia Protocol Insulin Aspart 3 - 6 units 10/24/24 08:00 10/26/24 08:42 Insulin Aspart (*Bkc) 100 Units/Ml SUB-Q Not Given TIDWM ANASTACIA Protocol Insulin Aspart 7 units 10/26/24 08:35 10/26/24 08:46 Insulin Aspart (*Bkc) 100 Units/Ml SUB-Q 7 units TIDWM ANASTACIA Administration Insulin Glargine 14 units 10/26/24 09:00 10/26/24 08:45 Insulin Glargine (*Bkc) 100 Units/Ml SUB-Q 14 units DAILY ANASTACIA Administration Loratadine 10 mg 10/24/24 09:00 10/26/24 05:31 Loratadine 10 Mg Tablet PO Not Given QAM ANASTACIA Losartan Potassium 50 mg 10/25/24 09:00 10/26/24 05:41 Losartan Potassium 25 Mg Tablet PO 50 mg DAILY ANASTACIA Administration Rifampin 300 mg 10/24/24 11:00 10/26/24 08:58 Rifampin 300 Mg Capsule PO 300 mg Q12HR ANASTACIA Administration Radiology Results: ITS Impressions Chest X-Ray 10/23/24 20:17 IMPRESSION: 1. No acute cardiopulmonary findings. Abdomen/Pelvis CT 10/24/24 08:07 IMPRESSION: 1. Cystitis. 2. Mild bilateral pyelonephritis. Soft Tissue Ultrasound 10/24/24 13:01 IMPRESSION: 1. Likely reactive left inguinal lymphadenopathy with no abscess identified. Assessment is however limited as patient refused imaging directly underlying the site of the skin wound. Knee CT 10/25/24 11:27 IMPRESSION: 1. Mild left knee osteoarthritis. 2. Large left knee joint effusion. 3. Small Brannon's cyst. Labs Labs: Laboratory Results - last 24 hr 10/25/24 10/25/24 10/25/24 11:45 16:52 20:11 WBC RBC Hgb Hct MCV MCH MCHC RDW Plt Count MPV Immature Gran % (Auto) Neut % (Auto) Lymph % (Auto) [place] % (Auto) Eos % (Auto) Baso % (Auto) Lymph # (Auto) [place] # (Auto) Eos # (Auto) Baso # (Auto) Abs Immat Gran (auto) Absolute Neuts (auto) Absolute Nucleated RBC Band Neutrophils % Nucleated RBC % Platelet Estimate Hypochromasia Tear Drop Cells Schistocytes Sodium Potassium Chloride Carbon Dioxide Anion Gap BUN Creatinine Estim Creat Clear Calc Estimated GFR Glucose POC Capillary Glucose 223 H 165 H 267 H Calcium 10/26/24 10/26/24 06:07 07:46 WBC 5.7 RBC 4.59 Hgb 10.3 L Hct 33.7 L MCV 73.4 L MCH 22.4 L MCHC 30.6 L RDW 16.2 H Plt Count 370 MPV 8.9 Immature Gran % (Auto) 3.7 H Neut % (Auto) 35.6 L Lymph % (Auto) 50.0 H [place] % (Auto) 6.8 Eos % (Auto) 3.0 Baso % (Auto) 0.9 Lymph # (Auto) 2.87 [place] # (Auto) 0.4 Eos # (Auto) 0.2 Baso # (Auto) 0.1 Abs Immat Gran (auto) 0.21 H Absolute Neuts (auto) 2.1 Absolute Nucleated RBC 0.000 Band Neutrophils % Not Reportable Nucleated RBC % 0.0 Platelet Estimate Adequate Hypochromasia 1+ Tear Drop Cells Occasional Schistocytes None seen Sodium 132 L Potassium 3.7 Chloride 103 Carbon Dioxide 21 L Anion Gap 8 BUN 7 Creatinine 0.39 L Estim Creat Clear Calc 170 Estimated GFR > 60 Glucose 185 H POC Capillary Glucose 179 H Calcium 8.5
--- NOTE | 2024-10-26 11:34 | P.PNIM_ITS ---
Progress Note: A&P Assessment and Plan (1) Tachycardia: Code(s): R00.0 - Tachycardia, unspecified Status: Acute (2) Chronic hyperglycemia: Code(s): R73.9 - Hyperglycemia, unspecified Status: Acute (3) Insulin dependent type 2 diabetes mellitus: Code(s): E11.9 - Type 2 diabetes mellitus without complications; Z79.4 - halfway (current) use of insulin Status: Acute (4) Sepsis: Qualifiers: Sepsis acute organ dysfunction status: unspecified Sepsis type: sepsis due to unspecified organism Qualified Code(s): A41.9 - Sepsis, unspecified organism Code(s): A41.9 - Sepsis, unspecified organism Status: Acute (5) Cellulitis of left groin: Code(s): L03.314 - Cellulitis of groin Status: Acute (6) Hidradenitis suppurativa: Code(s): L73.2 - Hidradenitis suppurativa Status: Chronic (7) Urinary tract infection: Qualifiers: Hematuria presence: without hematuria Urinary tract infection type: site unspecified Qualified Code(s): N39.0 - Urinary tract infection, site not specified Code(s): N39.0 - Urinary tract infection, site not specified Status: Acute Plan 39-year-old female patient who has a history of uncontrolled diabetes, hydradenitis suppurativa, and urinary tract infections. She presented to the emergency room with complaint of right lower quadrant abdominal pain, left knee pain, fevers, shortness of breath, slight chest pain, wheezing, and back pain. Although these symptoms have been going on for 2 weeks they appear to have g lamar worse over the last couple days. Her blood sugars were 437, 377 and then 223. Her urine was cloudy with 2+ blood, 3+ glucose, positive nitrate, 1+ leukocyte esterase, the urine wbc's greater than 100, and urine bacteria 4+. She was given normal saline bolus, Rocephin, hydralazine and Tylenol in the emergency room. As per ED provider patient CT scan indicates subcutaneous fat stranding involving the left inguinal region with presumed reactive left inguinal lymph nodes. Subtle focal areas striated hypoattenuation of the lateral aspect of the right kidney is most consistent with subtle pyelonephritis. No perinephric space abscess, no hydronephrosis or ureteral stone. 1. Left groin cellulitis: No evidence of underlying abscess General surgery following Wound Care consult Follow-up blood cultures, wound culture No leukocytosis Id has been consulted Currently on ceftriaxone, clindamycin, rifampicin Will defer further management of antibiotics to ID 2. Bilateral pyelonephritis: Urine culture growing Gram-negative bacilli Continue with ceftriaxone 3. Uncontrolled diabetes mellitus: Hemoglobin A1c 12.1 Patient is noncompliant due to no insurance and medications being unaffordable Patient does not check her blood glucose Poor diet Blood glucose checked t.i.d. a.c. HS Patient is not a candidate for glipizide given her elevated hemoglobin A1c of 12.1 Will not resume upon discharge Increase the dose of Lantus to 10 units Increased the dose of mealtime insulin to 7 units Continue with sliding scale insulin as well Adjust dose based on blood glucose levels Will benefit from clinical trial educator consult Care coordination to help with insurance issues Might benefit with medications on [employer] 4 dollar plan Appreciate Nutrition consult 4. Hypertension: Continue with losartan Will add hydrochlorothiazide 5. Left knee effusion: Noted large effusion of left knee Will obtain orthopedic consult 6. Code status: Full 7. DVT prophylaxis: Heparin subQ 8. Disposition: Pending improvement Time Spent With Patient Time: 41 minutes Subjective Date/time seen: 10/26/24 11:34 Interval history: No acute events overnight, blood glucose still elevated, blood pressure is s lightly elevated as well Review of Systems Review of Systems: All systems reviewed & are unremarkable except as noted in HPI and below Exam Const: General: cooperative, comfortable, no acute distress and awake Nutritional Appearance: well nourished Orientation/consciousness: patient oriented x3 Limitations: no limitations HENMT: Head: normal to inspection and normocephalic Ears: external ears normal Eyes: General: appearance normal, both eyes and all related structures Eyelids: eyelids normal Neck: Neck: supple Resp: Effort & Inspection: normal respiratory effort Auscultation: clear to auscultation bilaterally Cardio: Rate: regular rate Rhythm: regular rhythm Heart sounds: S1 normal heart sound present and S2 normal heart sound present GI: Inspection: normal to inspection Auscultation: normal bowel sounds Skin: General skin exam: normal color and fistulous tract Lesions: no lesions Rashes: no rashes Wounds: fistulous tract Other: Serous sanguinous drainage from a left growing. Neuro: General: patient oriented x3 Cranial nerves: Yes Equal, round and reactive pupils present Cognition (Neuro): normal cognition Speech: normal speech Psych: Mental Status: mental status grossly normal Objective Data Vital Signs Vital Signs: Vital Signs - 24 hr 10/25/24 12:00 10/25/24 14:00 10/25/24 16:00 Temperature 97.3 F L Pulse Rate 112 H 105 H 106 H Respiratory Rate 14 Blood Pressure 157/87 H Pulse Oximetry 100 Oxygen Delivery 10/25/24 20:00 10/25/24 20:00 10/25/24 20:15 Temperature 98 F Pulse Rate 115 H 114 H Respiratory Rate 20 Blood Pressure 162/106 H Pulse Oximetry 100 Oxygen Delivery Room Air 10/25/24 21:20 10/26/24 00:00 10/26/24 04:00 Temperature Pulse Rate 100 100 Respiratory Rate Blood Pressure 145/90 H Pulse Oximetry Oxygen Delivery 10/26/24 05:03 10/26/24 07:00 10/26/24 08:00 Temperature 97.6 F Pulse Rate 95 Respiratory Rate 16 Blood Pressure 163/105 H 152/93 H Pulse Oximetry 97 Oxygen Delivery Room Air 10/26/24 08:00 Temperature Pulse Rate 113 H Respiratory Rate Blood Pressure Pulse Oximetry Oxygen Delivery Intake/Output Intake/Output: Intake & Output 10/23/24 10/24/24 10/25/24 10/26/24 23:59 23:59 23:59 23:59 Intake Total 3850 1492 1858 690 Output Total 300 Balance 3850 1492 1558 690 Meds/Results Medications: Active Medications Generic Name Dose Route Start Last Admin Trade Name Freq PRN Reason Stop Dose Admin Acetaminophen 650 mg 10/24/24 01:04 10/26/24 08:57 Acetaminophen 325 Mg Tablet PO 650 mg Q4H PRN Administration Mild Pain (1-3) or Fever Clindamycin HCl 300 mg 10/24/24 11:00 10/26/24 08:57 Clindamycin Hcl 150 Mg Cap PO 300 mg Q12HR ANASTACIA Administration Dextrose 12.5 gm 10/25/24 08:05 Dextrose 50% 25 Gm/50 Ml Syringe IV PUSH PRN PRN Hypoglycemia Protocol Glipizide 10 mg 10/24/24 07:30 10/25/24 08:16 Glipizide 5 Mg Tablet PO Not Given On Hold: 10/25/24 08:05 DAILY@0730 ANASTACIA Glucagon 1 mg 10/25/24 08:05 Glucagon For Inj 1 Mg Vial IM PRN PRN Hypoglycemia Protocol Glucose 15 gm 10/25/24 08:05 Glucose Oral Gel 15 Gm Of Glucse In 37.5 Gm Tube PO PRN PRN Hypoglycemia Protocol Heparin Sodium (Porcine) 5,000 units 10/25/24 14:00 10/26/24 05:20 Heparin Sodium 5,000 Units/Ml Vial SUB-Q 5,000 units Q8HR ANASTACIA Administration Hydralazine HCl 10 mg 10/24/24 04:07 10/26/24 04:34 Hydralazine Hcl 20 Mg/Ml Vial IV PUSH 10 mg Q8H PRN Administration Blood Pressure - High Hydrochlorothiazide 25 mg 10/26/24 09:00 10/26/24 08:57 Hydrochlorothiazide 25 Mg Tablet PO 25 mg QAM ANASTACIA Administration Ceftriaxone Sodium 2 gm/ 100 mls @ 200 mls/hr 10/24/24 17:00 10/25/24 17:07 Sodium Chloride IVPB 200 mls/hr Q24H ANASTACIA Administration Dextrose 1,000 mls @ 100 mls/hr 10/25/24 08:05 Dextrose 5% 1,000 Ml IVPB PRN PRN Hypoglycemia Protocol Insulin Aspart 3 - 6 units 10/24/24 08:00 10/26/24 08:42 Insulin Aspart (*Bkc) 100 Units/Ml SUB-Q Not Given TIDWM ANASTACIA Protocol Insulin Aspart 7 units 10/26/24 08:35 10/26/24 08:46 Insulin Aspart (*Bkc) 100 Units/Ml SUB-Q 7 units TIDWM ANASTACIA Administration Insulin Glargine 14 units 10/26/24 09:00 10/26/24 08:45 Insulin Glargine (*Bkc) 100 Units/Ml SUB-Q 14 units DAILY ANASTACIA Administration Loratadine 10 mg 10/24/24 09:00 10/26/24 05:31 Loratadine 10 Mg Tablet PO Not Given QAM ANASTACIA Losartan Potassium 50 mg 10/25/24 09:00 10/26/24 05:41 Losartan Potassium 25 Mg Tablet PO 50 mg DAILY ANASTACIA Administration Rifampin 300 mg 10/24/24 11:00 10/26/24 08:58 Rifampin 300 Mg Capsule PO 300 mg Q12HR ANASTACIA Administration Radiology Results: ITS Impressions Chest X-Ray 10/23/24 20:17 IMPRESSION: 1. No acute cardiopulmonary findings. Abdomen/Pelvis CT 10/24/24 08:07 IMPRESSION: 1. Cystitis. 2. Mild bilateral pyelonephritis. Soft Tissue Ultrasound 10/24/24 13:01 IMPRESSION: 1. Likely reactive left inguinal lymphadenopathy with no abscess identified. Assessment is however limited as patient refused imaging directly underlying the site of the skin wound. Knee CT 10/25/24 11:27 IMPRESSION: 1. Mild left knee osteoarthritis. 2. Large left knee joint effusion. 3. Small Brannon's cyst. Labs Labs: Laboratory Results - last 24 hr 10/25/24 10/25/24 10/25/24 11:45 16:52 20:11 WBC RBC Hgb Hct MCV MCH MCHC RDW Plt Count MPV Immature Gran % (Auto) Neut % (Auto) Lymph % (Auto) [place] % (Auto) Eos % (Auto) Baso % (Auto) Lymph # (Auto) [place] # (Auto) Eos # (Auto) Baso # (Auto) Abs Immat Gran (auto) Absolute Neuts (auto) Absolute Nucleated RBC Band Neutrophils % Nucleated RBC % Platelet Estimate Hypochromasia Tear Drop Cells Schistocytes Sodium Potassium Chloride Carbon Dioxide Anion Gap BUN Creatinine Estim Creat Clear Calc Estimated GFR Glucose POC Capillary Glucose 223 H 165 H 267 H Calcium 10/26/24 10/26/24 06:07 07:46 WBC 5.7 RBC 4.59 Hgb 10.3 L Hct 33.7 L MCV 73.4 L MCH 22.4 L MCHC 30.6 L RDW 16.2 H Plt Count 370 MPV 8.9 Immature Gran % (Auto) 3.7 H Neut % (Auto) 35.6 L Lymph % (Auto) 50.0 H [place] % (Auto) 6.8 Eos % (Auto) 3.0 Baso % (Auto) 0.9 Lymph # (Auto) 2.87 [place] # (Auto) 0.4 Eos # (Auto) 0.2 Baso # (Auto) 0.1 Abs Immat Gran (auto) 0.21 H Absolute Neuts (auto) 2.1 Absolute Nucleated RBC 0.000 Band Neutrophils % Not Reportable Nucleated RBC % 0.0 Platelet Estimate Adequate Hypochromasia 1+ Tear Drop Cells Occasional Schistocytes None seen Sodium 132 L Potassium 3.7 Chloride 103 Carbon Dioxide 21 L Anion Gap 8 BUN 7 Creatinine 0.39 L Estim Creat Clear Calc 170 Estimated GFR > 60 Glucose 185 H POC Capillary Glucose 179 H Calcium 8.5 Quality VTE Prophylaxis VTE prophylaxis: pharmacologic ordered
[2024-10-26] MEDS: INSULIN ASPART (*BKC) 100 UNITS/ML SUB-Q ×2 (12:03→17:13)
[2024-10-26] MEDS: cefTRIAXone 2 GM in SODIUM CHLORIDE 0.9% IV 100 ML 200 ML IVPB (17:12)
[2024-10-27] VITALS (9 sets, daily range): BP systolic 127–133; BP diastolic 80–100; PULSE 109–133; RESP 18–20; TEMP 36.1–37.2; O2SAT 99–100
[2024-10-27 06:21] LABS: Hematocrit 38.5 % (37.0-47.0); Hemoglobin 11.6 g/dL (12.0-15.0); Immature Granulocyte Percent A 2.4 % (0-0.5); Lymphocytes Absolute Auto 3.69 K/mm3 (0.9-3.2); Mean Corpuscular HGB Conc 30.1 g/dl (32-36); Mean Corpuscular Hemoglobin 22.4 pg (26-34); Mean Corpuscular Volume 74.2 fl (80-100); Nucleated Red Blood Cells Absolute Auto 0.000 K/mm3 (0.0-0.012); Nucleated Red Blood Cells Perc 0.0 % (0.0-0.2); Platelet Count Result 472 k/mm3 (150-375); Red Blood Count 5.19 M/mm3 (4.2-5.4); White Blood Count 7.4 K/mm3 (4.5-10.0)
[2024-10-27 06:49] LABS: Anion Gap 9 mmol/L (4-12); Blood Urea Nitrogen 11 mg/dL (7-17); Calcium 9.0 mg/dL (8.4-10.2); Carbon Dioxide 21 mmol/L (22-30); Chloride 102 mmol/L (98-107); Estimated CRCL calculation 142 ml/min; Estimated Glomerular Filt Rate > 60; Glucose 193 mg/dL (65-110); Potassium 3.9 mmol/L (3.4-5.0); Sodium 132 mmol/L (137-145)
[2024-10-27 06:53] LABS: Anisocytosis 1+; Hypochromasia 1+
[2024-10-27 06:54] LABS: Schistocytes None Seen
--- NOTE | 2024-10-27 07:41 | PM.IMPN ---
Progress Note: A&P Assessment and Plan (1) Tachycardia: Code(s): R00.0 - Tachycardia, unspecified Status: Acute (2) Chronic hyperglycemia: Code(s): R73.9 - Hyperglycemia, unspecified Status: Acute (3) Insulin dependent type 2 diabetes mellitus: Code(s): E11.9 - Type 2 diabetes mellitus without complications; Z79.4 - [facility] (current) use of insulin Status: Acute (4) Sepsis: Qualifiers: Sepsis acute organ dysfunction status: unspecified Sepsis type: sepsis due to unspecified organism Qualified Code(s): A41.9 - Sepsis, unspecified organism Code(s): A41.9 - Sepsis, unspecified organism Status: Acute (5) Cellulitis of left groin: Code(s): L03.314 - Cellulitis of groin Status: Acute (6) Hidradenitis suppurativa: Code(s): L73.2 - Hidradenitis suppurativa Status: Chronic (7) Urinary tract infection: Qualifiers: Hematuria presence: without hematuria Urinary tract infection type: site unspecified Qualified Code(s): N39.0 - Urinary tract infection, site not specified Code(s): N39.0 - Urinary tract infection, site not specified Status: Acute Plan 39-year-old female patient who has a history of uncontrolled diabetes, hydradenitis suppurativa, and urinary tract infections. She presented to the emergency room with complaint of right lower quadrant abdominal pain, left knee pain, fevers, shortness of breath, slight chest pain, wheezing, and back pain. Although these symptoms have been going on for 2 weeks they appear to have gotten worse over the last couple days. Her blood sugars were 437, 377 and then 223. Her urine was cloudy with 2+ blood, 3+ glucose, positive nitrate, 1+ leukocyte esterase, the urine wbc's greater than 100, and urine bacteria 4+. She was given normal saline bolus, Rocephin, hydralazine and Tylenol in the emergency room. As per ED provider patient CT scan indicates subcutaneous fat stranding involving the left inguinal region with presumed reactive left inguinal lymph nodes. Subtle focal areas striated hypoattenuation of the lateral aspect of the right kidney is most consistent with subtle pyelonephritis. No perinephric space abscess, no hydronephrosis or ureteral stone. 1. Left groin cellulitis: No evidence of underlying abscess General surgery following Wound Care consult Follow-up blood cultures, wound culture No leukocytosis Id has been consulted Currently on ceftriaxone, clindamycin, rifampicin Will defer further management of antibiotics to ID ID recommends that patient discharges on PO clindamycin and rifampin for 2 months 2. Bilateral pyelonephritis: Urine culture growing Gram-negative bacilli Continue with ceftriaxone waiting for final ID and sensitivities 3. Uncontrolled diabetes mellitus: Hemoglobin A1c 12.1 Patient is noncompliant due to no insurance and medications being unaffordable Patient does not check her blood glucose Poor diet Blood glucose checked t.i.d. a.c. HS Patient is not a candidate for glipizide given her elevated hemoglobin A1c of 12.1 Will not resume upon discharge Increase the dose of Lantus to 10 units Increased the dose of mealtime insulin to 7 units Continue with sliding scale insulin as well Adjust dose based on blood glucose levels Will benefit from childbirth educator consult Care coordination to help with insurance issues Might benefit with medications on [email or web address] plan Appreciate Nutrition consult 4. Hypertension: Continue with losartan Continue hydrochlorothiazide BP appears improved today 5. Left knee effusion: Noted large effusion of left knee Will obtain orthopedic consult 6. Code status: Full 7. DVT prophylaxis: Heparin subQ 8. Disposition: Pending improvement Subjective Date/time seen: 10/27/24 07:41 Interval history: Patient seen for a follow up visit. Patient denies acute complaints. Patient tolerating IV ceftriaxone, PO clindamycin and PO rifampin. BP better controlled today. Urine culture pending final ID and sensitivities. Wound culture with Group B strep. ID and general surgery following. Patient denies acute pain. Plan for discharge home tomorrow pending final culture results. Review of Systems Review of Systems: All systems reviewed & are unremarkable except as noted in HPI and below Exam Const: General: cooperative, comfortable, no acute distress, well developed, awake, Physically active, average body habitus and well nourished Nutritional Appearance: average body habitus and well nourished Orientation/consciousness: oriented to person, oriented to place, oriented to time and patient oriented x3 Limitations: no limitations HENMT: Head: normal to inspection, No palpable skull fracture present and normocephalic Ears: hearing grossly normal bilaterally and external ears normal Eyes: General: appearance normal, both eyes and all related structures Alignment and Position: alignment normal Periorbital: periorbital findings normal Eyelids: eyelids normal Pupils: Equal, round and reactive pupils present Neck: Neck: normal visual inspection, full ROM and supple Chest: Chest palpation & inspection: normal inspection of the chest Resp: Effort & Inspection: normal respiratory effort Auscultation: clear to auscultation bilaterally Cardio: Palpation: normal PMI Rate: regular rate Rhythm: regular rhythm Heart sounds: S1 normal heart sound present and S2 normal heart sound present Peripheral pulses: Peripheral pulses 2+ throughout GI: Inspection: normal to inspection Auscultation: normal bowel sounds : General: Yes no CVA tenderness Back/Spine/Pelvis: Back: no CVA tenderness Cervical Spine: cervical ROM normal Skin: General skin exam: normal color and fistulous tract Lesions: no lesions Rashes: no rashes Wounds: fistulous tract Other: Serous sanguinous drainage from a left growing. Neuro: General: oriented to person, oriented to place, oriented to time and patient oriented x3 Cranial nerves: Yes Equal, round and reactive pupils present and Yes Normal hearing present Cognition (Neuro): normal cognition Speech: normal speech Motor exam (neuro): 5/5 motor strength present throughout Sensory Exam: normal sensation Extrem: General: normal to inspection Right upper extremity: normal to inspection and shoulder/upper arm Left upper extremity: normal to inspection and shoulder/upper arm Right lower extremity: normal to inspection Left lower extremity: normal to inspection Psych: Appearance: grossly normal Mental Status: mental status grossly normal Speech and movement: Normal speech and movement present Affect: normal affect Attitude: cooperative Thought process: Normal thought process present Insight: Good insight present (Psych) Judgement: Good judgement present (Psych) Objective Data Vital Signs Vital Signs: Vital Signs - 24 hr 10/26/24 08:00 10/26/24 08:00 10/26/24 12:00 Temperature Pulse Rate 113 H 121 H Respiratory Rate Blood Pressure Pulse Oximetry Oxygen Delivery Room Air 10/26/24 12:49 10/26/24 13:39 10/26/24 16:00 Temperature 97.8 F Pulse Rate 110 H 120 H Respiratory Rate 20 Blood Pressure 148/110 H 136/84 Pulse Oximetry 100 Oxygen Delivery 10/26/24 20:00 10/26/24 22:00 10/27/24 00:00 Temperature 97.5 F L Pulse Rate 117 H 133 H Respiratory Rate 20 Blood Pressure 136/93 H Pulse Oximetry 100 Oxygen Delivery Room Air 10/27/24 04:00 Temperature Pulse Rate 109 H Respiratory Rate Blood Pressure Pulse Oximetry Oxygen Delivery Intake/Output Intake/Output: Intake & Output 10/24/24 10/25/24 10/26/24 10/27/24 23:59 23:59 23:59 23:59 Intake Total 1492 1958 1680 Output Total 300 Balance 1492 1658 1680 Meds/Results Medications: Active Medications Generic Name Dose Route Start Last Admin Trade Name Freq PRN Reason Stop Dose Admin Acetaminophen 650 mg 10/24/24 01:04 10/26/24 08:57 Acetaminophen 325 Mg Tablet PO 650 mg Q4H PRN Administration Mild Pain (1-3) or Fever Clindamycin HCl 300 mg 10/24/24 11:00 10/26/24 21:12 Clindamycin Hcl 150 Mg Cap PO 300 mg Q12HR ANASTACIA Administration Dextrose 12.5 gm 10/25/24 08:05 Dextrose 50% 25 Gm/50 Ml Syringe IV PUSH PRN PRN Hypoglycemia Protocol Glipizide 10 mg 10/24/24 07:30 10/25/24 08:16 Glipizide 5 Mg Tablet PO Not Given On Hold: 10/25/24 08:05 DAILY@0730 ANASTACIA Glucagon 1 mg 10/25/24 08:05 Glucagon For Inj 1 Mg Vial IM PRN PRN Hypoglycemia Protocol Glucose 15 gm 10/25/24 08:05 Glucose Oral Gel 15 Gm Of Glucse In 37.5 Gm Tube PO PRN PRN Hypoglycemia Protocol Heparin Sodium (Porcine) 5,000 units 10/25/24 14:00 10/27/24 06:21 Heparin Sodium 5,000 Units/Ml Vial SUB-Q 5,000 units Q8HR ANASTACIA Administration Hydralazine HCl 10 mg 10/24/24 04:07 10/26/24 11:46 Hydralazine Hcl 20 Mg/Ml Vial IV PUSH 10 mg Q8H PRN Administration Blood Pressure - High Hydrochlorothiazide 25 mg 10/26/24 09:00 10/26/24 08:57 Hydrochlorothiazide 25 Mg Tablet PO 25 mg QAM ANASTACIA Administration Ceftriaxone Sodium 2 gm/ 100 mls @ 200 mls/hr 10/24/24 17:00 10/26/24 17:12 Sodium Chloride IVPB 200 mls/hr Q24H ANASTACIA Administration Dextrose 1,000 mls @ 100 mls/hr 10/25/24 08:05 Dextrose 5% 1,000 Ml IVPB PRN PRN Hypoglycemia Protocol Insulin Aspart 3 - 6 units 10/24/24 08:00 10/26/24 17:13 Insulin Aspart (*Bkc) 100 Units/Ml SUB-Q 3 units TIDWM ANASTACIA Administration Protocol Insulin Aspart 7 units 10/26/24 08:35 10/26/24 17:14 Insulin Aspart (*Bkc) 100 Units/Ml SUB-Q 7 units TIDWM ANASTACIA Administration Insulin Glargine 14 units 10/26/24 09:00 10/26/24 08:45 Insulin Glargine (*Bkc) 100 Units/Ml SUB-Q 14 units DAILY ANASTACIA Administration Loratadine 10 mg 10/24/24 09:00 10/26/24 05:31 Loratadine 10 Mg Tablet PO Not Given QAM ANASTACIA Losartan Potassium 50 mg 10/25/24 09:00 10/26/24 05:41 Losartan Potassium 25 Mg Tablet PO 50 mg DAILY ANASTACIA Administration Rifampin 300 mg 10/24/24 11:00 10/26/24 21:12 Rifampin 300 Mg Capsule PO 300 mg Q12HR ANASTACIA Administration Radiology Results: ITS Impressions Chest X-Ray 10/23/24 20:17 IMPRESSION: 1. No acute cardiopulmonary findings. Abdomen/Pelvis CT 10/24/24 08:07 IMPRESSION: 1. Cystitis. 2. Mild bilateral pyelonephritis. Soft Tissue Ultrasound 10/24/24 13:01 IMPRESSION: 1. Likely reactive left inguinal lymphadenopathy with no abscess identified. Assessment is however limited as patient refused imaging directly underlying the site of the skin wound. Knee CT 10/25/24 11:27 IMPRESSION: 1. Mild left knee osteoarthritis. 2. Large left knee joint effusion. 3. Small Brannon's cyst. Labs Labs: Laboratory Results - last 24 hr 10/26/24 10/26/24 10/26/24 07:46 11:17 16:29 WBC RBC Hgb Hct MCV MCH MCHC RDW Plt Count MPV Immature Gran % (Auto) Neut % (Auto) Lymph % (Auto) [place] % (Auto) Eos % (Auto) Baso % (Auto) Lymph # (Auto) [place] # (Auto) Eos # (Auto) Baso # (Auto) Abs Immat Gran (auto) Absolute Neuts (auto) Absolute Nucleated RBC Band Neutrophils % Nucleated RBC % Platelet Estimate Hypochromasia Anisocytosis Schistocytes Sodium Potassium Chloride Carbon Dioxide Anion Gap BUN Creatinine Estim Creat Clear Calc Estimated GFR Glucose POC Capillary Glucose 179 H 236 H 224 H Calcium 10/26/24 10/27/24 20:15 05:49 WBC 7.4 RBC 5.19 Hgb 11.6 L Hct 38.5 MCV 74.2 L MCH 22.4 L MCHC 30.1 L RDW 16.7 H Plt Count 472 H MPV 8.8 Immature Gran % (Auto) 2.4 H Neut % (Auto) 38.7 L Lymph % (Auto) 50.0 H [place] % (Auto) 5.4 Eos % (Auto) 2.6 Baso % (Auto) 0.9 Lymph # (Auto) 3.69 H [place] # (Auto) 0.4 Eos # (Auto) 0.2 Baso # (Auto) 0.1 Abs Immat Gran (auto) 0.18 H Absolute Neuts (auto) 2.9 Absolute Nucleated RBC 0.000 Band Neutrophils % Not Reportable Nucleated RBC % 0.0 Platelet Estimate Increased Hypochromasia 1+ Anisocytosis 1+ Schistocytes None seen Sodium 132 L Potassium 3.9 Chloride 102 Carbon Dioxide 21 L Anion Gap 9 BUN 11 Creatinine 0.48 L Estim Creat Clear Calc 142 Estimated GFR > 60 Glucose 193 H POC Capillary Glucose 207 H Calcium 9.0 Quality VTE Prophylaxis VTE prophylaxis: pharmacologic ordered
[2024-10-27] MEDS: INSULIN ASPART (*BKC) 100 UNITS/ML 7 UNITS SUB-Q ×3 (08:36→17:49)
[2024-10-27] MEDS: INSULIN GLARGINE (*BKC) 100 UNITS/ML 14 UNITS SUB-Q (08:37)
[2024-10-27] MEDS: INSULIN ASPART (*BKC) 100 UNITS/ML SUB-Q ×2 (08:37→17:49)
[2024-10-27] MEDS: CLINDAMYCIN HCL 150 MG CAP 300 MG PO ×2 (08:43→20:25)
[2024-10-27] MEDS: LOSARTAN POTASSIUM 25 MG TABLET 50 MG PO (08:44)
[2024-10-27] MEDS: LORATADINE 10 MG TABLET PO (08:44)
--- NOTE | 2024-10-27 09:30 | P.PN_ITS ---
Progress Note: A&P Assessment and Plan (1) Hidradenitis suppurativa: Code(s): L73.2 - Hidradenitis suppurativa Status: Chronic Assessment and Plan: Improving with just oral abx tx. Currently on rifampin and clindamycin for the hidradenitis suppurativa. Infectious disease recommends 2 month course of oral antibiotics for the hidradenitis. Patient can be discharged on these antibiotics I will follow-up in the office in 1 to 2 weeks. Disposition as per hospitalist. Subjective Date/time seen: 10/27/24 09:30 Interval history: Patient states she feels better today. No significant complaints. Seen by Infectious Disease and recommendations are to stay on the current oral antibi otic regimen for her for bilateral groin hidradenitis supprativa for 2 months. Awaiting results on her urine. White blood cell count is normal. Exam Skin: Other: Small bilateral groin abscesses spontaneously draining. Decreasing induration. Decreasing erythema. No significant residual abscess to drain. Objective Data Vital Signs Vital Signs: Vital Signs - 24 hr 10/26/24 12:00 10/26/24 12:49 10/26/24 13:39 Temperature 36.6 C Pulse Rate 121 H 110 H Respiratory Rate 20 Blood Pressure 148/110 H 136/84 Pulse Oximetry 100 Oxygen Delivery 10/26/24 16:00 10/26/24 20:00 10/26/24 22:00 Temperature 36.4 C L Pulse Rate 120 H 117 H Respiratory Rate 20 Blood Pressure 136/93 H Pulse Oximetry 100 Oxygen Delivery Room Air 10/27/24 00:00 10/27/24 04:00 10/27/24 06:00 Temperature 36.2 C L Pulse Rate 133 H 109 H 116 H Respiratory Rate 20 Blood Pressure 133/90 Pulse Oximetry 99 Oxygen Delivery Intake/Output Intake/Output: Intake & Output 10/24/24 10/25/24 10/26/24 10/27/24 23:59 23:59 23:59 23:59 Intake Total 1492 1958 1680 500 Output Total 300 Balance 1492 1658 1680 500 Meds/Results Medications: Active Medications Generic Name Dose Route Start Last Admin Trade Name Freq PRN Reason Stop Dose Admin Acetaminophen 650 mg 10/24/24 01:04 10/26/24 08:57 Acetaminophen 325 Mg Tablet PO 650 mg Q4H PRN Administration Mild Pain (1-3) or Fever Clindamycin HCl 300 mg 10/24/24 11:00 10/27/24 08:43 Clindamycin Hcl 150 Mg Cap PO 300 mg Q12HR ANASTACIA Administration Dextrose 12.5 gm 10/25/24 08:05 Dextrose 50% 25 Gm/50 Ml Syringe IV PUSH PRN PRN Hypoglycemia Protocol Glipizide 10 mg 10/24/24 07:30 10/25/24 08:16 Glipizide 5 Mg Tablet PO Not Given On Hold: 10/25/24 08:05 DAILY@0730 ANASTACIA Glucagon 1 mg 10/25/24 08:05 Glucagon For Inj 1 Mg Vial IM PRN PRN Hypoglycemia Protocol Glucose 15 gm 10/25/24 08:05 Glucose Oral Gel 15 Gm Of Glucse In 37.5 Gm Tube PO PRN PRN Hypoglycemia Protocol Heparin Sodium (Porcine) 5,000 units 10/25/24 14:00 10/27/24 06:21 Heparin Sodium 5,000 Units/Ml Vial SUB-Q 5,000 units Q8HR ANASTACIA Administration Hydralazine HCl 10 mg 10/24/24 04:07 10/26/24 11:46 Hydralazine Hcl 20 Mg/Ml Vial IV PUSH 10 mg Q8H PRN Administration Blood Pressure - High Hydrochlorothiazide 25 mg 10/26/24 09:00 10/27/24 08:44 Hydrochlorothiazide 25 Mg Tablet PO 25 mg QAM ANASTACIA Administration Ceftriaxone Sodium 2 gm/ 100 mls @ 200 mls/hr 10/24/24 17:00 10/26/24 17:12 Sodium Chloride IVPB 200 mls/hr Q24H ANASTACIA Administration Dextrose 1,000 mls @ 100 mls/hr 10/25/24 08:05 Dextrose 5% 1,000 Ml IVPB PRN PRN Hypoglycemia Protocol Insulin Aspart 3 - 6 units 10/24/24 08:00 10/27/24 08:37 Insulin Aspart (*Bkc) 100 Units/Ml SUB-Q 3 units TIDWM ANASTACIA Administration Protocol Insulin Aspart 7 units 10/26/24 08:35 10/27/24 08:36 Insulin Aspart (*Bkc) 100 Units/Ml SUB-Q 7 units TIDWM ANASTACIA Administration Insulin Glargine 14 units 10/26/24 09:00 10/27/24 08:37 Insulin Glargine (*Bkc) 100 Units/Ml SUB-Q 14 units DAILY ANASTACIA Administration Loratadine 10 mg 10/24/24 09:00 10/27/24 08:44 Loratadine 10 Mg Tablet PO 10 mg QAM ANASTACIA Administration Losartan Potassium 50 mg 10/25/24 09:00 10/27/24 08:44 Losartan Potassium 25 Mg Tablet PO 50 mg DAILY ANASTACIA Administration Rifampin 300 mg 10/24/24 11:00 10/27/24 08:45 Rifampin 300 Mg Capsule PO 300 mg Q12HR ANASTACIA Administration Radiology Results: ITS Impressions Chest X-Ray 10/23/24 20:17 IMPRESSION: 1. No acute cardiopulmonary findings. Abdomen/Pelvis CT 10/24/24 08:07 IMPRESSION: 1. Cystitis. 2. Mild bilateral pyelonephritis. Soft Tissue Ultrasound 10/24/24 13:01 IMPRESSION: 1. Likely reactive left inguinal lymphadenopathy with no abscess identified. Assessment is however limited as patient refused imaging directly underlying the site of the skin wound. Knee CT 10/25/24 11:27 IMPRESSION: 1. Mild left knee osteoarthritis. 2. Large left knee joint effusion. 3. Small Brannon's cyst. Labs Labs: Laboratory Results - last 24 hr 10/26/24 10/26/24 10/26/24 11:17 16:29 20:15 WBC RBC Hgb Hct MCV MCH MCHC RDW Plt Count MPV Immature Gran % (Auto) Neut % (Auto) Lymph % (Auto) Bradford % (Auto) Eos % (Auto) Baso % (Auto) Lymph # (Auto) Bradford # (Auto) Eos # (Auto) Baso # (Auto) Abs Immat Gran (auto) Absolute Neuts (auto) Absolute Nucleated RBC Band Neutrophils % Nucleated RBC % Platelet Estimate Hypochromasia Anisocytosis Schistocytes Sodium Potassium Chloride Carbon Dioxide Anion Gap BUN Creatinine Estim Creat Clear Calc Estimated GFR Glucose POC Capillary Glucose 236 H 224 H 207 H Calcium 10/27/24 10/27/24 05:49 07:41 WBC 7.4 RBC 5.19 Hgb 11.6 L Hct 38.5 MCV 74.2 L MCH 22.4 L MCHC 30.1 L RDW 16.7 H Plt Count 472 H MPV 8.8 Immature Gran % (Auto) 2.4 H Neut % (Auto) 38.7 L Lymph % (Auto) 50.0 H Bradford % (Auto) 5.4 Eos % (Auto) 2.6 Baso % (Auto) 0.9 Lymph # (Auto) 3.69 H Bradford # (Auto) 0.4 Eos # (Auto) 0.2 Baso # (Auto) 0.1 Abs Immat Gran (auto) 0.18 H Absolute Neuts (auto) 2.9 Absolute Nucleated RBC 0.000 Band Neutrophils % Not Reportable Nucleated RBC % 0.0 Platelet Estimate Increased Hypochromasia 1+ Anisocytosis 1+ Schistocytes None seen Sodium 132 L Potassium 3.9 Chloride 102 Carbon Dioxide 21 L Anion Gap 9 BUN 11 Creatinine 0.48 L Estim Creat Clear Calc 142 Estimated GFR > 60 Glucose 193 H POC Capillary Glucose 213 H Calcium 9.0
[2024-10-27] MEDS: cefTRIAXone 2 GM in SODIUM CHLORIDE 0.9% IV 100 ML 200 ML IVPB (17:51)
[2024-10-28] VITALS (9 sets, daily range): BP systolic 101–141; BP diastolic 70–86; PULSE 103–127; RESP 16–18; TEMP 36.5–36.9; O2SAT 99–100
[2024-10-28 06:54] LABS: Hematocrit 36.0 % (37.0-47.0); Hemoglobin 11.0 g/dL (12.0-15.0); Immature Granulocyte Percent A 2.3 % (0-0.5); Lymphocytes Absolute Auto 3.19 K/mm3 (0.9-3.2); Mean Corpuscular HGB Conc 30.6 g/dl (32-36); Mean Corpuscular Hemoglobin 22.1 pg (26-34); Mean Corpuscular Volume 72.3 fl (80-100); Nucleated Red Blood Cells Absolute Auto 0.000 K/mm3 (0.0-0.012); Nucleated Red Blood Cells Perc 0.0 % (0.0-0.2); Platelet Count Result 411 k/mm3 (150-375); Red Blood Count 4.98 M/mm3 (4.2-5.4); White Blood Count 7.2 K/mm3 (4.5-10.0)
[2024-10-28 07:27] LABS: Anion Gap 10 mmol/L (4-12); Blood Urea Nitrogen 11 mg/dL (7-17); Calcium 9.0 mg/dL (8.4-10.2); Carbon Dioxide 20 mmol/L (22-30); Chloride 101 mmol/L (98-107); Estimated CRCL calculation 144 ml/min; Estimated Glomerular Filt Rate > 60; Glucose 211 mg/dL (65-110); Potassium 4.1 mmol/L (3.4-5.0); Sodium 131 mmol/L (137-145)
[2024-10-28 07:48] LABS: Hypochromasia 1+; Schistocytes None Seen
[2024-10-28] MEDS: INSULIN ASPART (*BKC) 100 UNITS/ML SUB-Q ×3 (08:39→16:36)
[2024-10-28] MEDS: INSULIN ASPART (*BKC) 100 UNITS/ML 7 UNITS SUB-Q ×3 (08:39→16:37)
[2024-10-28] MEDS: INSULIN GLARGINE (*BKC) 100 UNITS/ML 14 UNITS SUB-Q (08:42)
[2024-10-28] MEDS: LORATADINE 10 MG TABLET PO (08:43)
[2024-10-28] MEDS: CLINDAMYCIN HCL 150 MG CAP 300 MG PO ×2 (08:43→21:45)
[2024-10-28] MEDS: LOSARTAN POTASSIUM 25 MG TABLET 50 MG PO (08:44)
--- NOTE | 2024-10-28 14:41 | P.PNIM_ITS ---
Progress Note: A&P Assessment and Plan (1) Tachycardia: Code(s): R00.0 - Tachycardia, unspecified Status: Acute (2) Chronic hyperglycemia: Code(s): R73.9 - Hyperglycemia, unspecified Status: Acute (3) Insulin dependent type 2 diabetes mellitus: Code(s): E11.9 - Type 2 diabetes mellitus without complications; Z79.4 - USP (current) use of insulin Status: Acute (4) Sepsis: Qualifiers: Sepsis acute organ dysfunction status: unspecified Sepsis type: sepsis due to unspecified organism Qualified Code(s): A41.9 - Sepsis, unspecified organism Code(s): A41.9 - Sepsis, unspecified organism Status: Acute (5) Cellulitis of left groin: Code(s): L03.314 - Cellulitis of groin Status: Acute (6) Hidradenitis suppurativa: Code(s): L73.2 - Hidradenitis suppurativa Status: Chronic (7) Urinary tract infection: Qualifiers: Hematuria presence: without hematuria Urinary tract infection type: site unspecified Qualified Code(s): N39.0 - Urinary tract infection, site not specified Code(s): N39.0 - Urinary tract infection, site not specified Status: Acute Plan 39-year-old female patient who has a history of uncontrolled diabetes, hydradenitis suppurativa, and urinary tract infections. She presented to the emergency room with complaint of right lower quadrant abdominal pain, left knee pain, fevers, shortness of breath, slight chest pain, wheezing, and back pain. Although these symptoms have been going on for 2 weeks they appear to have g lamar worse over the last couple days. Her blood sugars were 437, 377 and then 223. Her urine was cloudy with 2+ blood, 3+ glucose, positive nitrate, 1+ leukocyte esterase, the urine wbc's greater than 100, and urine bacteria 4+. She was given normal saline bolus, Rocephin, hydralazine and Tylenol in the emergency room. As per ED provider patient CT scan indicates subcutaneous fat stranding involving the left inguinal region with presumed reactive left inguinal lymph nodes. Subtle focal areas striated hypoattenuation of the lateral aspect of the right kidney is most consistent with subtle pyelonephritis. No perinephric space abscess, no hydronephrosis or ureteral stone. 1. Left groin cellulitis: No evidence of underlying abscess General surgery following Wound Care consult Follow-up blood cultures, wound culture No leukocytosis Id has been consulted s/p ceftriaxone continue clindamycin, rifampicin Will defer further management of antibiotics to ID ID recommends that patient discharges on PO clindamycin and rifampin for 2 months reviewed cost of antibiotics with patient today using [employer] discount coupon and patient reports she can afford to pay for the antibiotics. Scripts will need to be sent to [facility] on discharge. 2. Bilateral pyelonephritis: Urine culture growing Gram-negative bacilli Continue with ceftriaxone waiting for final ID and sensitivities lab contacted and reports that final ID and sensitivities will be sent to us today, await results. 3. Uncontrolled diabetes mellitus: Hemoglobin A1c 12.1 Patient is noncompliant due to no insurance and medications being unaffordable Patient does not check her blood glucose Poor diet Blood glucose checked t.i.d. a.c. HS Patient is not a candidate for glipizide given her elevated hemoglobin A1c of 12.1 Will not resume upon discharge Increase the dose of Lantus to 10 units Increased the dose of mealtime insulin to 7 units Continue with sliding scale insulin as well Adjust dose based on blood glucose levels Will benefit from cosmetology educator consult Care coordination to help with insurance issues [facility] Appreciate Nutrition consult 4. Hypertension: Continue with losartan Continue hydrochlorothiazide BP appears improved today 5. Left knee effusion: Noted large effusion of left knee Will obtain orthopedic consult, pending 6. Code status: Full 7. DVT prophylaxis: Heparin subQ 8. Disposition: Pending improvement Subjective Date/time seen: 10/28/24 14:41 Interval history: Patient seen sitting up in bed, in no acute distress. Patient denies acute pain. Patient denies acute complaints. Urine culture pending, lab contacted and states report will be released today. General surgery and ID following. Discussed cost of antibiotics with patient and she confirms she can afford to purchase them without insurance. Patient reports she had difficulty getting test strips and lancets to monitor her blood sugar at home. Patient currently has a sophie sensor in place which is good for 14 days from placement. certified adapted physical educator has also provided patient with resources to help on discharge. Patient will need all scripts sent to [facility] pharmacy on discharge. Patient will also need lancets and test strips to be sent (her is supposed to provide what type of meter she has at home). Orthopedic consult pending for large effusion of left knee. Review of Systems Review of Systems: All systems reviewed & are unremarkable except as noted in HPI and below Exam Const: General: cooperative, comfortable, no acute distress, well developed, awake, Physically active, average body habitus and well nourished Nutritional Appearance: average body habitus and well nourished Orientation/consciousness: oriented to person, oriented to place, oriented to time and patient oriented x3 Limitations: no limitations HENMT: Head: normal to inspection, No palpable skull fracture present and normocephalic Ears: hearing grossly normal bilaterally and external ears normal Eyes: General: appearance normal, both eyes and all related structures Alignment and Position: alignment normal Periorbital: periorbital findings normal Eyelids: eyelids normal Pupils: Equal, round and reactive pupils present Neck: Neck: normal visual inspection, full ROM and supple Chest: Chest palpation & inspection: normal inspection of the chest Resp: Effort & Inspection: normal respiratory effort Auscultation: clear to auscultation bilaterally Cardio: Palpation: normal PMI Rate: regular rate Rhythm: regular rhythm Heart sounds: S1 normal heart sound present and S2 normal heart sound present Peripheral pulses: Peripheral pulses 2+ throughout GI: Inspection: normal to inspection Auscultation: normal bowel sounds : General: Yes no CVA tenderness Back/Spine/Pelvis: Back: no CVA tenderness Cervical Spine: cervical ROM normal Skin: General skin exam: normal color and fistulous tract Lesions: no lesions Rashes: no rashes Wounds: fistulous tract Other: Serous sanguinous drainage from a left growing. Neuro: General: oriented to person, oriented to place, oriented to time and patient oriented x3 Cranial nerves: Yes Equal, round and reactive pupils present and Yes Normal hearing present Cognition (Neuro): normal cognition Speech: normal speech Motor exam (neuro): 5/5 motor strength present throughout Sensory Exam: normal sensation Extrem: General: normal to inspection Right upper extremity: normal to inspection and shoulder/upper arm Left upper extremity: normal to inspection and shoulder/upper arm Right lower extremity: normal to inspection Left lower extremity: normal to inspection Psych: Appearance: grossly normal Mental Status: mental status grossly normal Speech and movement: Normal speech and movement present Affect: normal affect Attitude: cooperative Thought process: Normal thought process present Insight: Good insight present (Psych) Judgement: Good judgement present (Psych) Objective Data Vital Signs Vital Signs: Vital Signs - 24 hr 10/27/24 16:00 10/27/24 20:00 10/27/24 20:00 Temperature Pulse Rate 118 H 123 H 125 H Respiratory Rate 18 Blood Pressure Pulse Oximetry 100 Oxygen Delivery Room Air 10/27/24 21:53 10/28/24 00:00 10/28/24 04:00 Temperature 98.9 F Pulse Rate 125 H 103 H 103 H Respiratory Rate 18 Blood Pressure 132/100 H Pulse Oximetry 100 Oxygen Delivery 10/28/24 06:00 10/28/24 08:00 10/28/24 12:00 Temperature 98.5 F Pulse Rate 103 H 116 H 118 H Respiratory Rate 16 Blood Pressure 141/86 H Pulse Oximetry 99 Oxygen Delivery Intake/Output Intake/Output: Intake & Output 10/25/24 10/26/24 10/27/24 10/28/24 23:59 23:59 23:59 23:59 Intake Total 1958 1780 1320 480 Output Total 300 Balance 1658 1780 1320 480 Meds/Results Medications: Active Medications Generic Name Dose Route Start Last Admin Trade Name Freq PRN Reason Stop Dose Admin Acetaminophen 650 mg 10/24/24 01:04 10/26/24 08:57 Acetaminophen 325 Mg Tablet PO 650 mg Q4H PRN Administration Mild Pain (1-3) or Fever Clindamycin HCl 300 mg 10/24/24 11:00 10/28/24 08:43 Clindamycin Hcl 150 Mg Cap PO 300 mg Q12HR ANASTACIA Administration Dextrose 12.5 gm 10/25/24 08:05 Dextrose 50% 25 Gm/50 Ml Syringe IV PUSH PRN PRN Hypoglycemia Protocol Glipizide 10 mg 10/24/24 07:30 10/25/24 08:16 Glipizide 5 Mg Tablet PO Not Given On Hold: 10/25/24 08:05 DAILY@0730 ANASTACIA Glucagon 1 mg 10/25/24 08:05 Glucagon For Inj 1 Mg Vial IM PRN PRN Hypoglycemia Protocol Glucose 15 gm 10/25/24 08:05 Glucose Oral Gel 15 Gm Of Glucse In 37.5 Gm Tube PO PRN PRN Hypoglycemia Protocol Heparin Sodium (Porcine) 5,000 units 10/25/24 14:00 10/28/24 14:09 Heparin Sodium 5,000 Units/Ml Vial SUB-Q 5,000 units Q8HR ANASTACIA Administration Hydralazine HCl 10 mg 10/24/24 04:07 10/26/24 11:46 Hydralazine Hcl 20 Mg/Ml Vial IV PUSH 10 mg Q8H PRN Administration Blood Pressure - High Hydrochlorothiazide 25 mg 10/26/24 09:00 10/28/24 08:43 Hydrochlorothiazide 25 Mg Tablet PO 25 mg QAM ANASTACIA Administration Ceftriaxone Sodium 2 gm/ 100 mls @ 200 mls/hr 10/24/24 17:00 10/27/24 18:21 Sodium Chloride IVPB Infused Q24H ANASTACIA Infusion Dextrose 1,000 mls @ 100 mls/hr 10/25/24 08:05 Dextrose 5% 1,000 Ml IVPB PRN PRN Hypoglycemia Protocol Insulin Aspart 3 - 6 units 10/24/24 08:00 10/28/24 11:56 Insulin Aspart (*Bkc) 100 Units/Ml SUB-Q 4 units TIDWM ANASTACIA Administration Protocol Insulin Aspart 7 units 10/26/24 08:35 10/28/24 11:57 Insulin Aspart (*Bkc) 100 Units/Ml SUB-Q 7 units TIDWM ANASTACIA Administration Insulin Glargine 14 units 10/26/24 09:00 10/28/24 08:42 Insulin Glargine (*Bkc) 100 Units/Ml SUB-Q 14 units DAILY ANASTACIA Administration Loratadine 10 mg 10/24/24 09:00 10/28/24 08:43 Loratadine 10 Mg Tablet PO 10 mg QAM ANASTACIA Administration Losartan Potassium 50 mg 10/25/24 09:00 10/28/24 08:44 Losartan Potassium 25 Mg Tablet PO 50 mg DAILY ANASTACIA Administration Rifampin 300 mg 10/24/24 11:00 10/28/24 08:43 Rifampin 300 Mg Capsule PO 300 mg Q12HR ANASTACIA Administration Radiology Results: ITS Impressions Chest X-Ray 10/23/24 20:17 IMPRESSION: 1. No acute cardiopulmonary findings. Abdomen/Pelvis CT 10/24/24 08:07 IMPRESSION: 1. Cystitis. 2. Mild bilateral pyelonephritis. Soft Tissue Ultrasound 10/24/24 13:01 IMPRESSION: 1. Likely reactive left inguinal lymphadenopathy with no abscess identified. Assessment is however limited as patient refused imaging directly underlying the site of the skin wound. Knee CT 10/25/24 11:27 IMPRESSION: 1. Mild left knee osteoarthritis. 2. Large left knee joint effusion. 3. Small Brannon's cyst. Labs Labs: Laboratory Results - last 24 hr 10/27/24 10/27/24 10/28/24 16:36 20:05 06:36 WBC 7.2 RBC 4.98 Hgb 11.0 L Hct 36.0 L MCV 72.3 L MCH 22.1 L MCHC 30.6 L RDW 16.3 H Plt Count 411 H MPV 8.8 Immature Gran % (Auto) 2.3 H Neut % (Auto) 43.6 L Lymph % (Auto) 44.1 Esmeralda % (Auto) 6.5 Eos % (Auto) 2.8 Baso % (Auto) 0.7 Lymph # (Auto) 3.19 Esmeralda # (Auto) 0.5 Eos # (Auto) 0.2 Baso # (Auto) 0.1 Abs Immat Gran (auto) 0.17 H Absolute Neuts (auto) 3.2 Absolute Nucleated RBC 0.000 Band Neutrophils % Not Reportable Nucleated RBC % 0.0 Platelet Estimate Increased Hypochromasia 1+ Schistocytes None seen Sodium 131 L Potassium 4.1 Chloride 101 Carbon Dioxide 20 L Anion Gap 10 BUN 11 Creatinine 0.47 L Estim Creat Clear Calc 144 Estimated GFR > 60 Glucose 211 H POC Capillary Glucose 282 H 216 H Calcium 9.0 10/28/24 10/28/24 07:37 11:37 WBC RBC Hgb Hct MCV MCH MCHC RDW Plt Count MPV Immature Gran % (Auto) Neut % (Auto) Lymph % (Auto) Esmeralda % (Auto) Eos % (Auto) Baso % (Auto) Lymph # (Auto) Esmeralda # (Auto) Eos # (Auto) Baso # (Auto) Abs Immat Gran (auto) Absolute Neuts (auto) Absolute Nucleated RBC Band Neutrophils % Nucleated RBC % Platelet Estimate Hypochromasia Schistocytes Sodium Potassium Chloride Carbon Dioxide Anion Gap BUN Creatinine Estim Creat Clear Calc Estimated GFR Glucose POC Capillary Glucose 203 H 277 H Calcium Quality VTE Prophylaxis VTE prophylaxis: pharmacologic ordered
[2024-10-28] MEDS: cefTRIAXone 2 GM in SODIUM CHLORIDE 0.9% IV 100 ML 200 ML IVPB (16:37)
[2024-10-29] VITALS: PULSE 114
[2024-10-29 04:00] VITALS: PULSE 118
[2024-10-29 06:00] VITALS: BP 132/79; PULSE 114; RESP 16; TEMP 36.3; O2SAT 98
[2024-10-29 06:47] LABS: Hematocrit 39.7 % (37.0-47.0); Hemoglobin 11.9 g/dL (12.0-15.0); Immature Granulocyte Percent A 2.3 % (0-0.5); Lymphocytes Absolute Auto 3.72 K/mm3 (0.9-3.2); Mean Corpuscular HGB Conc 30.0 g/dl (32-36); Mean Corpuscular Hemoglobin 22.1 pg (26-34); Mean Corpuscular Volume 73.8 fl (80-100); Nucleated Red Blood Cells Absolute Auto 0.000 K/mm3 (0.0-0.012); Nucleated Red Blood Cells Perc 0.0 % (0.0-0.2); Platelet Count Result 483 k/mm3 (150-375); Red Blood Count 5.38 M/mm3 (4.2-5.4); White Blood Count 7.8 K/mm3 (4.5-10.0)
[2024-10-29 06:57] LABS: Anion Gap 11 mmol/L (4-12); Blood Urea Nitrogen 11 mg/dL (7-17); Calcium 9.4 mg/dL (8.4-10.2); Carbon Dioxide 21 mmol/L (22-30); Chloride 100 mmol/L (98-107); Estimated CRCL calculation 137 ml/min; Estimated Glomerular Filt Rate > 60; Glucose 224 mg/dL (65-110); Potassium 4.3 mmol/L (3.4-5.0); Sodium 132 mmol/L (137-145)
[2024-10-29 08:00] VITALS: PULSE 120
[2024-10-29] MEDS: CLINDAMYCIN HCL 150 MG CAP 300 MG PO (09:26)
[2024-10-29] MEDS: LORATADINE 10 MG TABLET PO (09:26)
[2024-10-29] MEDS: LOSARTAN POTASSIUM 25 MG TABLET 50 MG PO (09:26)
[2024-10-29] MEDS: INSULIN ASPART (*BKC) 100 UNITS/ML 7 UNITS SUB-Q ×2 (09:26→12:20)
[2024-10-29] MEDS: INSULIN ASPART (*BKC) 100 UNITS/ML SUB-Q ×2 (09:27→12:18)
[2024-10-29] MEDS: INSULIN GLARGINE (*BKC) 100 UNITS/ML 14 UNITS SUB-Q (09:27)
[2024-10-29 12:00] VITALS: PULSE 143
--- NOTE | 2024-10-29 13:20 | P.CONOP_ITS ---
Assessment and Plan Assessment and plan (1) Effusion of left knee joint: Code(s): M25.462 - Effusion, left knee Status: Acute Assessment and Plan: 39 year old female admitted for multiple medical problems and complaints of left knee pain. History, exam and radiographs reviewed with the patient. Initial radiographs of the left knee revealed a large knee joint effusion and mild DJD. CT scan obtained as well which reveals the same. On exam, patient has good ROM with flexion/extension. No redness, warmth. Mild knee joint effusion palpable. Suspected improvement in comparison to previous reports. No severe pain with exam. Condition, nature, etiology and course of natural history discussed. Conservative and operative treatment options reviewed as well as the risks and benefits of both. Recommended avoiding aspiration/injection due to the clinically small effusion on exam, lack of erythema, active infection and uncontrolled DM. Patient would benefit from topical analgesics and an ANTHONY wrap or pull on neoprene knee sleeve. She may follow up in the outpatient orthoepdic clinic if needed. Would also recommend f/u with her bus steward or establishing care through her PCP. (2) Urinary tract infection: Qualifiers: Hematuria presence: without hematuria Urinary tract infection type: s ite unspecified Qualified Code(s): N39.0 - Urinary tract infection, site not specified Code(s): N39.0 - Urinary tract infection, site not specified Status: Acute (3) Pyelonephritis: Code(s): N12 - Tubulo-interstitial nephritis, not specified as acute or chronic Status: Acute Plan Reviewed history, exam, radiographs and current labs with attending MD and covering surgeon, Dr. Levine, who agrees with current plan as indicated above. No further recommendations from Dr. Levine at this time. History of Present Illness HPI Consult date: 10/29/24 Requesting physician: Renetta Martinez MD Chief complaint: pyelonephritis, sepsis, hyperglycemia Narrative: 39-year-old woman with uncontrolled insulin-dependent type 2 diabetes mellitus, hidradenitis suppurativa, and recurrent UTIs. Patient admitted for pyelonephritis, left groin cellulitis, sepsis and hyperglycemia. She is being followed by general surgery and ID. Orthopedic consult requested for left knee joint effusion seen on CT scan. Patient endorses a history of RA today which mainly affects her hands. Review of Systems 2 Review of Systems: All systems reviewed & are unremarkable except as noted in HPI and below PMFSH Past Medical History Medical History Obstructive sleep apnea Untreated Iron deficiency anemia History of blood transfusion Hidradenitis suppurativa Insulin dependent type 2 diabetes mellitus Surgical History Surgical History History of excision of lesion Excision [place]illary [place] [address] Philippe History of section Family History Family History Sibling Family history of type 2 diabetes mellitus Father Family history of type 2 diabetes mellitus Mother Hypertension Social History Social History Social History: Surrogate medical decision maker: Sue Palma, mother. Along with her . She has 1 child. She works for [employer]. Code status: Full code. Smoking status: Never smoker Second hand tobacco smoke exposure: Yes (at work) Alcohol intake: never Substance use: never Lack of Transportation: No Lack of Food: Never True Current Housing: I Have Housing Concerned About Future Housing: No Difficulty Paying Gas/Electric Bills: No Difficulty Paying for Meds: YES Currently Unemployed: No Education: High School Diploma/GED Difficulty w/ Childcare or Family Care: No Spiritual care concerns: No Meds Home Medications and Allergies Home Medications ?Medication ?Instructions ?Recorded ?Confirmed ?Type glucagon HCl 1 mg solution for 1 mg subcut Q20M PRN Hy poglycemia 01/10/20 10/24/24 History injection (Glucagon (HCl) Emergency Kit) loratadine 10 mg tablet 10 mg PO QAM #30 tabs 10/24/24 Rx amoxicillin 875 mg-potassium 1 tablet PO Q12H #10 tabs 10/29/24 Rx clavulanate 125 mg tablet blood sugar diagnostic (Contour #100 ea 10/29/24 Rx Next Test Strips) hydrochlorothiazide 25 mg tablet 25 mg PO QAM #30 tabs 10/29/24 Rx insulin aspart U-100 100 unit/mL 7 unit (0.07 mL) subc ut TIDWM #5 10/29/24 Rx (3 mL) subcutaneous pen (Novolog pens FlexPen U-100 Insulin aspart) insulin glargine 100 unit/mL (3 14 unit (0.14 mL) subc ut DAILY #5 10/29/24 Rx mL) subcutaneous pen (Basaglar pens KwikPen U-100 Insulin) losartan 50 mg tablet 50 mg PO DAILY #30 tabs 10/09 04/03 Rx pen needle, diabetic 31 gauge x #100 ea 10/29/24 Rx 06/22 Allergies Allergy/AdvReac Type Severity Reaction Status Date / Time metformin AdvReac Intermediate Vomiting Verified 10/23/24 20:56 Vital Signs Vital Signs - 24 hr 10/28/24 14:00 10/28/24 16:00 10/28/24 20:00 Temperature 36.5 C Pulse Rate 127 H 120 H 122 H Respiratory Rate 18 16 Blood Pressure 101/77 Pulse Oximetry 100 99 Oxygen Delivery Room Air 10/28/24 20:00 10/28/24 22:00 10/29/24 00:00 Temperature 36.9 C Pulse Rate 118 H 122 H 114 H Respiratory Rate 16 Blood Pressure 121/70 Pulse Oximetry 99 Oxygen Delivery 10/29/24 04:00 10/29/24 06:00 10/29/24 08:00 Temperature 36.3 C L Pulse Rate 118 H 114 H Respiratory Rate 16 Blood Pressure 132/79 Pulse Oximetry 98 Oxygen Delivery Room Air 10/29/24 08:00 10/29/24 12:00 Temperature Pulse Rate 120 H 143 H Respiratory Rate Blood Pressure Pulse Oximetry Oxygen Delivery Exam 2 Const: General: cooperative Orientation/consciousness: patient oriented x3 Limitations: no limitations HENMT: Head: normal to inspection Ears: hearing grossly normal bilaterally Face/Nose/Sinus: Normal external nose present Mouth: Yes moist mucous membranes Eyes: General: appearance normal, both eyes and all related structures P upils: Equal, round and reactive pupils present EOM: EOMs intact bilaterally Neck: Neck: normal visual inspection Chest: Chest palpation & inspection: normal inspection of the chest Resp: Effort & Inspection: normal respiratory effort and able to speak in complete sentences Cardio: Jugular venous distension: no JVD Neuro: General: patient oriented x3 Cranial nerves: Yes Equal, round and reactive pupils present Extrem: General: normal to inspection, capillary refill normal, no calf tenderness and normal gait (antalgic ) Right lower extremity: normal to inspection, full ROM, normal capillary refill and knee Details: normal to inspection and normal ROM; no tenderness and no swelling Left lower extremity: normal to inspection, normal capillary refill and knee Details: normal to inspection, tenderness (AROM/PROM with pain ), swelling (mild effusion ), abnormal ROM Details: pain with active ROM Details: with extension and with flexion and pain with passive ROM Details: with extension and with flexion, knee ligament exam normal and crepitus Location: at the patella; no ecchymosis and no unusual warmth Results Labs 10/29/24 06:07 10/29/24 06:07 Labs: Abnormal lab results 10/28/24 10/28/24 10/29/24 Range/Units 16:35 20:17 06:07 Hgb 11.9 L (12.0-15.0) g/dL MCV 73.8 L (80-100) fl MCH 22.1 L (26-34) pg MCHC 30.0 L (32-36) g/dl RDW 16.4 H (11.5-14.5) % Plt Count 483 H (150-375) k/mm3 Immature Gran % (Auto) 2.3 H (0-0.5) % Neut % (Auto) 40.1 L (45.5-73.1) % Lymph % (Auto) 47.6 H (18.3-44.2) % Lymph # (Auto) 3.72 H (0.9-3.2) K/mm3 Abs Immat Gran (auto) 0.18 H (0.00-0.031) K/mm3 Sodium 132 L (137-145) mmol/L Carbon Dioxide 21 L (22-30) mmol/L Creatinine 0.50 L (0.7-1.0) mg/dL Glucose 224 H (65-110) mg/dL POC Capillary Glucose 203 H 281 H (65-105) mg/dl 10/29/24 10/29/24 Range/Units 07:42 11:16 Hgb (12.0-15.0) g/dL MCV (80-100) fl MCH (26-34) pg MCHC (32-36) g/dl RDW (11.5-14.5) % Plt Count (150-375) k/mm3 Immature Gran % (Auto) (0-0.5) % Neut % (Auto) (45.5-73.1) % Lymph % (Auto) (18.3-44.2) % Lymph # (Auto) (0.9-3.2) K/mm3 Abs Immat Gran (auto) (0.00-0.031) K/mm3 Sodium (137-145) mmol/L Carbon Dioxide (22-30) mmol/L Creatinine (0.7-1.0) mg/dL Glucose (65-110) mg/dL POC Capillary Glucose 227 H 234 H (65-105) mg/dl H & H 10/23/24 10/24/24 10/25/24 Range/Units 18:53 05:56 06:36 Hgb 11.0 L 10.0 L 10.2 L (12.0-15.0) g/dL Hct 35.8 L 33.1 L 33.0 L (37.0-47.0) % 10/26/24 10/27/24 10/28/24 Range/Units 06:07 05:49 06:36 Hgb 10.3 L 11.6 L 11.0 L (12.0-15.0) g/dL Hct 33.7 L 38.5 36.0 L (37.0-47.0) % 10/29/24 Range/Units 06:07 Hgb 11.9 L (12.0-15.0) g/dL Hct 39.7 (37.0-47.0) % Coagulation 10/23/24 Range/Units 18:53 INR 1.3 All other labs normal.
--- NOTE | 2024-10-29 13:27 | PM.DS ---
DS: Admitting Diagnosis Discharge Date 10/29/2024 Admitting Diagnosis left groin cellulitis, bilateral pyelonephriti DS: Discharge Diagnosis Discharge Diagnosis (1) Tachycardia: Code(s): R00.0 - Tachycardia, unspecified Status: Acute (2) Chronic hyperglycemia: Code(s): R73.9 - Hyperglycemia, unspecified Status: Acute (3) Insulin dependent type 2 diabetes mellitus: Code(s): E11.9 - Type 2 diabetes mellitus without complications; Z79.4 - terminologist (current) use of insulin Status: Acute (4) Sepsis: Qualifiers: Sepsis acute organ dysfunction status: unspecified Sepsis type: sepsis due to unspecified organism Qualified Code(s): A41.9 - Sepsis, unspecified organism Code(s): A41.9 - Sepsis, unspecified organism Status: Acute (5) Cellulitis of left groin: Code(s): L03.314 - Cellulitis of groin Status: Acute (6) Hidradenitis suppurativa: Code(s): L73.2 - Hidradenitis suppurativa Status: Chronic (7) Urinary tract infection: Qualifiers: Hematuria presence: without hematuria Urinary tract infection type: site unspecified Qualified Code(s): N39.0 - Urinary tract infection, site not specified Code(s): N39.0 - Urinary tract infection, site not specified Status: Acute Plan 39-year-old female patient who has a history of uncontrolled diabetes, hydradenitis suppurativa, and urinary tract infections. She presented to the emergency room with complaint of right lower quadrant abdominal pain, left knee pain, fevers, shortness of breath, slight chest pain, wheezing, and back pain. Although these symptoms have been going on for 2 weeks they appear to have gotten worse over the last couple days. Her blood sugars were 437, 377 and then 223. Her urine was cloudy with 2+ blood, 3+ glucose, positive nitrate, 1+ leukocyte esterase, the urine wbc's greater than 100, and urine bacteria 4+. She was given normal saline bolus, Rocephin, hydralazine and Tylenol in the emergency room. As per ED provider patient CT scan indicates subcutaneous fat stranding involving the left inguinal region with presumed reactive left inguinal lymph nodes. Subtle focal areas striated hypoattenuation of the lateral aspect of the right kidney is most consistent with subtle pyelonephritis. No perinephric space abscess, no hydronephrosis or ureteral stone. 1. Left groin cellulitis: No evidence of underlying abscess General surgery following Wound Care consult Follow-up blood cultures, wound culture No leukocytosis Id has been consulted s/p ceftriaxone continue clindamycin, rifampicin Will defer further management of antibiotics to ID ID recommends that patient discharges on PO clindamycin and rifampin for 2 months reviewed cost of antibiotics with patient today using [employer] discount coupon and patient reports she can afford to pay for the antibiotics. Scripts will need to be sent to [facility] on discharge. 2. Bilateral pyelonephritis: Urine culture growing Gram-negative bacilli Continue with ceftriaxone waiting for final ID and sensitivities lab contacted and reports that final ID and sensitivities will be sent to us today, await results. 3. Uncontrolled diabetes mellitus: Hemoglobin A1c 12.1 Patient is noncompliant due to no insurance and medications being unaffordable Patient does not check her blood glucose Poor diet Blood glucose checked t.i.d. a.c. HS Patient is not a candidate for glipizide given her elevated hemoglobin A1c of 12.1 Will not resume upon discharge Increase the dose of Lantus to 10 units Increased the dose of mealtime insulin to 7 units Continue with sliding scale insulin as well Adjust dose based on blood glucose levels Will benefit from natural resources extension educator consult Care coordination to help with insurance issues [facility] Appreciate Nutrition consult 4. Hypertension: Continue with losartan Continue hydrochlorothiazide BP appears improved today 5. Left knee effusion: Noted large effusion of left knee Will obtain orthopedic consult, pending 6. Code status: Full 7. DVT prophylaxis: Heparin subQ DS: Summary Hospital Course Reason for hospitalization: RLQ abdominal pain Hospital Course: Patient is a 39-year-old female patient who has a history of uncontrolled diabetes, hydradenitis suppurativa, and urinary tract infections. She presented to the emergency room with complaint of right lower quadrant abdominal pain, left knee pain, fevers, shortness of breath, slight chest pain, wheezing, and back pain. Her urine was cloudy with 2+ blood, 3+ glucose, positive nitrate, 1+ leukocyte esterase, the urine wbc's greater than 100, and urine bacteria 4+. She was given normal saline bolus, Rocephin, hydralazine and Tylenol in the emergency room. As per ED provider patient CT scan indicates subcutaneous fat stranding involving the left inguinal region with presumed reactive left inguinal lymph nodes. Subtle focal areas striated hypoattenuation of the lateral aspect of the right kidney is most consistent with subtle pyelonephritis. No perinephric space abscess, no hydronephrosis or ureteral stone. General surgery was consulted. General surgery recommended conservative treatment with antibiotics and wound care. Wound cultures reviewed and ID recommended PO clindamycin and rifampin. Patients diabetes uncontrolled with Hgba1c 12.1. Patient does not have insurance and does not have a PCP. Patient was given information from case management for PCP referrals and pharmacy information. Patient was improving and patient was ready for discharge. ID changed antibiotics prior to discharge to Augmentin x 5 days. Patient given medications for her HTN and DM. All meds sent to the pharmacy and patient instructed to make an appointment to establish a PCP. Time Spent with Patient Time attestation: Total time spent providing and/or coordinating discharge services: 40 Minutess Exam Const: General: cooperative, comfortable, no acute distress, well developed, awake, Physically active, average body habitus and well nourished Nutritional Appearance: average body habitus and well nourished Orientation/consciousness: oriented to person, oriented to place, oriented to time and patient oriented x3 Limitations: no limitations HENMT: Head: normal to inspection, No palpable skull fracture present and normocephalic Ears: hearing grossly normal bilaterally and external ears normal Eyes: General: appearance normal, both eyes and all related structures Alignment and Position: alignment normal Periorbital: periorbital findings normal Eyelids: eyelids normal Pupils: Equal, round and reactive pupils present Neck: Neck: normal visual inspection, full ROM and supple Chest: Chest palpation & inspection: normal inspection of the chest Resp: Effort & Inspection: normal respiratory effort Auscultation: clear to auscultation bilaterally Cardio: Palpation: normal PMI Rate: regular rate Rhythm: regular rhythm Heart sounds: S1 normal heart sound present and S2 normal heart sound present Peripheral pulses: Peripheral pulses 2+ throughout GI: Inspection: normal to inspection Auscultation: normal bowel sounds : General: Yes no CVA tenderness Back/Spine/Pelvis: Back: no CVA tenderness Cervical Spine: cervical ROM normal Skin: General skin exam: normal color and fistulous tract Lesions: no lesions Rashes: no rashes Wounds: fistulous tract Other: Serous sanguinous drainage from a left growing. Neuro: General: oriented to person, oriented to place, oriented to time and patient oriented x3 Cranial nerves: Yes Equal, round and reactive pupils present and Yes Normal hearing present Cognition (Neuro): normal cognition Speech: normal speech Motor exam (neuro): 5/5 motor strength present throughout Sensory Exam: normal sensation Extrem: General: normal to inspection Right upper extremity: normal to inspection and shoulder/upper arm Left upper extremity: normal to inspection and shoulder/upper arm Right lower extremity: normal to inspection Left lower extremity: normal to inspection Psych: Appearance: grossly normal Mental Status: mental status grossly normal Speech and movement: Normal speech and movement present Affect: normal affect Attitude: cooperative Thought process: Normal thought process present Insight: Good insight present (Psych) Judgement: Good judgement present (Psych) DS: Data Data Completed and Pending Labs on day of discharge: Labs from last 24 hours 10/29/24 10/29/24 10/29/24 11:16 07:42 06:07 WBC 7.8 RBC 5.38 Hgb 11.9 L Hct 39.7 MCV 73.8 L MCH 22.1 L MCHC 30.0 L RDW 16.4 H Plt Count 483 H MPV 8.7 Immature Gran % (Auto) 2.3 H Neut % (Auto) 40.1 L Lymph % (Auto) 47.6 H [place] % (Auto) 6.3 Eos % (Auto) 2.7 Baso % (Auto) 1.0 Lymph # (Auto) 3.72 H [place] # (Auto) 0.5 Eos # (Auto) 0.2 Baso # (Auto) 0.1 Abs Immat Gran (auto) 0.18 H Absolute Neuts (auto) 3.1 Absolute Nucleated RBC 0.000 Nucleated RBC % 0.0 Sodium 132 L Potassium 4.3 Chloride 100 Carbon Dioxide 21 L Anion Gap 11 BUN 11 Creatinine 0.50 L Estim Creat Clear Calc 137 Estimated GFR > 60 Glucose 224 H POC Capillary Glucose 234 H 227 H Calcium 9.4 10/28/24 10/28/24 20:17 16:35 WBC RBC Hgb Hct MCV MCH MCHC RDW Plt Count MPV Immature Gran % (Auto) Neut % (Auto) Lymph % (Auto) [place] % (Auto) Eos % (Auto) Baso % (Auto) Lymph # (Auto) [place] # (Auto) Eos # (Auto) Baso # (Auto) Abs Immat Gran (auto) Absolute Neuts (auto) Absolute Nucleated RBC Nucleated RBC % Sodium Potassium Chloride Carbon Dioxide Anion Gap BUN Creatinine Estim Creat Clear Calc Estimated GFR Glucose POC Capillary Glucose 281 H 203 H Calcium Preliminary micro results at discharge 10/23/24 20:54 Blood Culture - Preliminary Blood 10/23/24 20:24 Blood Culture - Preliminary Blood Discharge Plan Discharge Attending physician on discharge: Gerry Castañeda Consulting providers: Matthew Kohler; Naun Goetz; Daria Benitez; Renetta Martinez; Olya Cerda; Sabina Cline; Yefri Chinchilla; Josse Avery; Adan Keller V.; Ryne Tatum Discharging Clinician: Marimar Loco Patient Disposition: Home Activity: as tolerated Diet: diabetic Discharge Instructions: Follow up with Dr Kohler in the office in 10-14 days. Call for an appointment. Continue oral abx as per Hospitalist. Ok to shower. Cover woulds with dry gauze or band aids if any drainage. Please call number provided to you by care coordination to arrange for outpatient PCP follow up. Patient Instructions: Antibiotic Form Patient Language: Faroese Stand Alone Forms: General Discharge Information, Work/School Release IP Follow-up/Referrals: Alexander Corrales MD [Physician, Infectious Disease] Referral Note: call office to set up follow up visit Matthew Kohler MD [Physician, General Surgery] Referral Note: See Dr. Kohler in the office in 10-14 days. Discharge Medications: New hydrochlorothiazide 25 mg Tablet 25 mg PO QAM Qty: 30 0RF insulin aspart U-100 [Novolog FlexPen U-100 Insulin] 100 unit/mL (3 mL) insulin pen 7 unit subcut TIDWM Qty: 5 0RF insulin glargine [Basaglar KwikPen U-100 Insulin] 100 unit/mL (3 mL) insulin pen 14 unit subcut DAILY Qty: 5 0RF losartan 50 mg tablet 50 mg PO DAILY Qty: 30 0RF amoxicillin-pot clavulanate 875-125 mg tablet 1 tablet PO Q12H Qty: 10 0RF (DME) pen needle, diabetic 31 gauge x 5/16 needle See Rx Instructions .Route Qty: 100 0RF Rx Instructions: As directed (DME) Contour Next Test Strips Strip See Rx Instructions .Route Qty: 100 0RF Rx Instructions: check blood sugar three times per day before meals and as needed Continued glucagon HCl [Glucagon (HCl) Emergency Kit] 1 mg Recon Soln 1 mg SUBCUT Q20M PRN (Reason: Hypoglycemia) loratadine 10 mg Tablet 10 mg PO QAM Qty: 30 0RF Discontinued Novolin 70-30 FlexPen U-100 100 unit/mL (70-30) insulin pen 45 unit SUBCUT BID glipizide 10 mg tablet 10 mg PO DAILY Date of admission: 10/24/24 08:04 Primary Care Provider: PHYSICIAN NOT ON STAFF,NONSTAFF Admitting Provider: Keisha Marcus Attending physician on admission: Marimar Loco Condition: Stable Quality VTE Prophylaxis VTE prophylaxis: pharmacologic ordered
--- NOTE | 2024-10-29 19:13 | P.PNINF_ITS ---
Progress Note: A&P Assessment and Plan (1) Pyelonephritis: Code(s): N12 - Tubulo-interstitial nephritis, not specified as acute or chronic Status: Acute (2) Urinary tract infection: Qualifiers: Hematuria presence: without hematuria Urinary tract infection type: site unspecified Qualified Code(s): N39.0 - Urinary tract infection, site not specified Code(s): N39.0 - Urinary tract infection, site not specified Status: Acute (3) Sepsis: Qualifiers: Sepsis acute organ dysfunction status: unspecified Sepsis type: sepsis due to unspecified organism Qualified Code(s): A41.9 - Sepsis, unspecified organism Code(s): A41.9 - Sepsis, unspecified organism Status: Acute (4) Hidradenitis suppurativa: Code(s): L73.2 - Hidradenitis suppurativa Status: Chronic (5) Type 2 diabetes mellitus with hyperglycemia: Code(s): E11.65 - Type 2 diabetes mellitus with hyperglycemia Status: Acute (6) Effusion of left knee joint: Code(s): M25.462 - Effusion, left knee Status: Acute Plan # Complicated urinary tract infection with right-sided pyelonephritis. -- urine culture with Gram-negative rods to date. On ceftriaxone. # Chronic hidradenitis suppurativa with left greater than right groin involvement flare. -- left groin with sinus formation and some drainage, no evidence of abscess. -- general surgery has evaluated. Medical management planned. -- on clindamycin and rifampin. Tachycardia and elevated lactate on presentation, possible sepsis, resolving. Type 2 diabetes with hyperglycemia. Plan: -- Switch to augmenting for 5 more days Can hold rifimapin and clinda pt anticipating insurance eventually with work. I will follow with her regularly to monitor HS until we can consider biologic agents wto reduce surgery risk/recurrence. will have rifampin/clinda available in meantime. Patient was seen via video telehealth consultation with the assistance of staff. Chart, data, and patient independently reviewed. Patient was located at [facility] while I was located in my [place] office. Received verbal consent from patient. Subjective Date/time seen: 10/29/24 19:13 Exam Narrative: She is awake and alert and nontoxic. Some obesity. Sitting up comfortably in a chair. Breathing comfortably and without active cough. No abnormal abdominal distention. Positive right CVA tenderness. Left inguinal region with minimally draining sinus. Area is tender. No rash. Objective Data Vital Signs Vital Signs: Vital Signs - 24 hr 10/28/24 20:00 10/28/24 20:00 10/28/24 22:00 Temperature 36.9 C Pulse Rate 122 H 118 H 122 H Respiratory Rate 16 16 Blood Pressure 121/70 Pulse Oximetry 99 99 Oxygen Delivery Room Air 10/29/24 00:00 10/29/24 04:00 10/29/24 06:00 Temperature 36.3 C L Pulse Rate 114 H 118 H 114 H Respiratory Rate 16 Blood Pressure 132/79 Pulse Oximetry 98 Oxygen Delivery 10/29/24 08:00 10/29/24 08:00 10/29/24 12:00 Temperature Pulse Rate 120 H 143 H Respiratory Rate Blood Pressure Pulse Oximetry Oxygen Delivery Room Air Intake/Output Intake/Output: Intake & Output 10/26/24 10/27/24 10/28/24 10/29/24 23:59 23:59 23:59 23:59 Intake Total 1780 1320 820 930 Balance 1780 1320 820 930 Meds/Results Radiology Results: ITS Impressions Chest X-Ray 10/23/24 20:17 IMPRESSION: 1. No acute cardiopulmonary findings. Abdomen/Pelvis CT 10/24/24 08:07 IMPRESSION: 1. Cystitis. 2. Mild bilateral pyelonephritis. Soft Tissue Ultrasound 10/24/24 13:01 IMPRESSION: 1. Likely reactive left inguinal lymphadenopathy with no abscess identified. Assessment is however limited as patient refused imaging directly underlying the site of the skin wound. Knee CT 10/25/24 11:27 IMPRESSION: 1. Mild left knee osteoarthritis. 2. Large left knee joint effusion. 3. Small Brannon's cyst. Labs Labs: Laboratory Results - last 24 hr 10/28/24 10/29/24 10/29/24 20:17 06:07 07:42 WBC 7.8 RBC 5.38 Hgb 11.9 L Hct 39.7 MCV 73.8 L MCH 22.1 L MCHC 30.0 L RDW 16.4 H Plt Count 483 H MPV 8.7 Immature Gran % (Auto) 2.3 H Neut % (Auto) 40.1 L Lymph % (Auto) 47.6 H [place] % (Auto) 6.3 Eos % (Auto) 2.7 Baso % (Auto) 1.0 Lymph # (Auto) 3.72 H [place] # (Auto) 0.5 Eos # (Auto) 0.2 Baso # (Auto) 0.1 Abs Immat Gran (auto) 0.18 H Absolute Neuts (auto) 3.1 Absolute Nucleated RBC 0.000 Nucleated RBC % 0.0 Sodium 132 L Potassium 4.3 Chloride 100 Carbon Dioxide 21 L Anion Gap 11 BUN 11 Creatinine 0.50 L Estim Creat Clear Calc 137 Estimated GFR > 60 Glucose 224 H POC Capillary Glucose 281 H 227 H Calcium 9.4 10/29/24 11:16 WBC RBC Hgb Hct MCV MCH MCHC RDW Plt Count MPV Immature Gran % (Auto) Neut % (Auto) Lymph % (Auto) [place] % (Auto) Eos % (Auto) Baso % (Auto) Lymph # (Auto) [place] # (Auto) Eos # (Auto) Baso # (Auto) Abs Immat Gran (auto) Absolute Neuts (auto) Absolute Nucleated RBC Nucleated RBC % Sodium Potassium Chloride Carbon Dioxide Anion Gap BUN Creatinine Estim Creat Clear Calc Estimated GFR Glucose POC Capillary Glucose 234 H Calcium
--- NOTE | 2024-11-01 09:08 | PC.NURSE ---
Spoke with Flor Loco NP and Nikole Huffman, Infection Control Pharmacist, regarding need for additional antx. to cover anaerobic results. Connor said pt is on correct treatment and does not need additional antibiotics.
--- NOTE | 2024-11-05 16:02 | PCCDE ---
11/05/24: DM educator courtesy follow up call completed. Pt denies questions related to her DM. Reports picked up DM prescriptions and no concerns. Still working on finding PCP. I reminded her about OP opportunity.
== END 2024-10-29 15:00 | disposition home or self-care (01) | DRG 872 ==
LOC: ANHED 10-24 01:04 → ANH3MEDSUR 10-24 02:02
PROVIDERS: Internal Medicine; Nurse Practitioner; Admitting Provider General Practice; Emergency Provider Registered Nurse; Visit Provider Nurse Practitioner Adult Health
DX: A41.9 Sepsis, unspecified organism (principal); N39.0 Urinary tract infection, site not specified; N12 Tubulo-interstitial nephritis, not specified as acute or chronic; L03.314 Cellulitis of groin; B96.20 Unspecified Escherichia coli [E. coli] as the cause of diseases classified elsewhere; B95.1 Streptococcus, group B, as the cause of diseases classified elsewhere; D50.9 Iron deficiency anemia, unspecified; E11.65 Type 2 diabetes mellitus with hyperglycemia; G47.33 Obstructive sleep apnea (adult) (pediatric); I10 Essential (primary) hypertension; J45.909 Unspecified asthma, uncomplicated; L73.2 Hidradenitis suppurativa; M25.462 Effusion, left knee; Z91.141 Patient's other noncompliance with medication regimen due to financial hardship; Z79.84 Long term (current) use of oral hypoglycemic drugs; Z79.4 Long term (current) use of insulin; Z79.85 Long-term (current) use of injectable non-insulin antidiabetic drugs; Z20.822 Contact with and (suspected) exposure to COVID-19
CPT/HCPCS: 36415; 71046; 73564; 73700; 74177; 76882; 80048; 80053; 81001; 81025; 82010; 82948; 83036; 83605; 83690; 84484; 85025; 85380; 85610; 85730; 86140; 87040; 87070; 87075; 87086; 87186; 87637; 93005; 96361; 96365; 96375; 99285; A9270; G0378; J0360; J0692; J0696; J1644; J1815; J3373; J7030; J7050; Q9967